=== PATIENT | male | born 1945 | race Caucasian/White ===

== ENCOUNTER 2021-07-09 08:16 | Outpatient (REF) | payer MEDICARE, OTHER, SELFPAY | END 2021-07-09 08:17 | disposition home or self-care (01) | LOC: HO.LAB 08:16 | PROVIDERS: Visit Provider Internal Medicine | DX: Z20.822 Contact with and (suspected) exposure to COVID-19 (principal) | CPT/HCPCS: C9803; U0003; U0005 ==

== ENCOUNTER 2021-09-05 12:47 | Outpatient (REF) | payer MEDICARE, OTHER, SELFPAY ==
[2021-09-05 16:20] LABS: COVID-19 Test Negative (Negative)
== END 2021-09-05 12:48 | disposition home or self-care (01) ==
LOC: HO.LAB 12:47
PROVIDERS: Visit Provider Internal Medicine
DX: Z20.822 Contact with and (suspected) exposure to COVID-19 (principal)
CPT/HCPCS: 36415; 87635; C9803

== ENCOUNTER 2021-11-05 13:58 | Outpatient (REF) | payer MEDICARE, OTHER, SELFPAY ==
--- NOTE | 2021-11-05 | PFT_ITS ---
FLOWS: FEV1 81% of predicted at 1.98 L. FVC 81% of predicted at 2.65 L. FEV1 to FVC ratio of 0.75. No bronchodilator response except in small to medium airways. LUNG VOLUMES: Total lung capacity 90% of predicted at 5.38 L. Residual volume 113% of predicted at 2.54 L. Slow vital capacity 76% of predicted at 2.74 L. Expiratory reserve volume 42% of predicted at 0.35 L. Diffusion capacity is mildly decreased, diffusion capacity corrects to normal after adjustment for alveolar ventilation. IMPRESSION: No obstructive or restrictive ventilatory defect. No bronchodilator response except in small to medium airways. Decreased expiratory reserve volume suggests extrathoracic restriction, likely secondary to abdominal obesity. Inder Scott MD AP/MODL / [id number]
--- NOTE | ~2021-11-05 | CT_ITS ---
EXAMINATION: CT CHEST WITHOUT CONTRAST CLINICAL INFORMATION: Smoking history COMPARISON: Previous chest CT August 2019 TECHNIQUE: Multidetector volumetric CT imaging of the chest was done. Axial MIP volume rendering provided. Sagittal and coronal reformatted images were obtained. This CT examination was performed using dose optimization techniques as appropriate, variously including the following: *Automated exposure control *Adjustment of mA and/or kV according to patient size (this includes techniques or standardized protocols for targeted exams where dose is matched to indication/reason for exam; i.e. extremities or head) *Use of iterative reconstruction technique DLP: 177 mGy-cm FINDINGS: [place] MACHINE OPERATOR: Unremarkable LUNGS: There is evidence of emphysema. The small pulmonary nodules are stable. Largest pulmonary nodule measures 4 mm in the anterior segment of the right upper lobe axial image 86 series 7. No new pulmonary nodule is seen. MEDIASTINUM: The left pulmonary artery is prominent. This is unchanged from previous exam. The thoracic aorta is tortuous but normal in caliber. The mediastinum is otherwise normal. PLEURA: There is no pleural effusion. No pleural mass or thickening. AXILLA: No lymphadenopathy. UPPER ABDOMEN: There is diverticulosis of the colon. OSSEOUS STRUCTURES: There are degenerative changes of the spine. CT/CT chest wo con IMPRESSION: Emphysema. Stable small pulmonary nodules. Stable prominence of the left pulmonary artery. Fleischner guidelines were followed.
== END 2021-11-05 13:59 | disposition home or self-care (01) ==
LOC: HO.CT 13:58
PROVIDERS: PCP Internal Medicine; Visit Provider Internal Medicine
DX: J43.9 Emphysema, unspecified (principal); R91.8 Other nonspecific abnormal finding of lung field; F17.200 Nicotine dependence, unspecified, uncomplicated
CPT/HCPCS: 71250; 94060; 94727; 94729

== ENCOUNTER 2022-01-28 07:56 | Outpatient (REF) | payer MEDICARE, MEDICAID, SELFPAY ==
[2022-01-28 08:25] LABS: COVID-19 Test Negative (Negative); IDNOW Serial# 08D9AD1C
== END 2022-01-28 07:57 | disposition home or self-care (01) ==
LOC: HO.LAB 07:56
PROVIDERS: PCP Internal Medicine; Visit Provider Internal Medicine
DX: Z20.822 Contact with and (suspected) exposure to COVID-19 (principal)
CPT/HCPCS: 87635; C9803

== ENCOUNTER 2022-02-13 07:54 | Day surgery (SDC) | payer OTHER, SELFPAY ==
[2022-02-08 10:34] VITALS: BMI 30.9
--- NOTE | 2022-02-12 11:53 | P.CONAN_ITS ---
Documented by User: Shamika Butterfield NP 02/12/22 11:54 HPI - Anesthesia Eval Consult details Narrative: 76yo M for Upper Endoscopy and Colonoscopy [facility] Past Medical History Medical History BPH (benign prostatic hyperplasia) History of ETOH abuse Hx of gastritis Migraine Smoker Surgical History Surgical History (Updated 02/08/22 @ 10:32 by Karlee Sanchez RN) History of esophagogastroduodenoscopy (EGD) Hx of colonoscopy Status post incision and drainage Social History Social History Patient Tobacco Use Status: Current everyday Tobacco user Are you DNR?: No Advance Directives: No Advance Directives Information Provided: Yes Meds Allergies Allergy/AdvReac Type Severity Reaction Status Date / Time No Known Allergies Allergy Verified 02/13/22 07:51 [No Known Allergies*] Exam Exam Date and Time: February 12, 2022 1153 Height,Weight and Vital Signs: Height 5 ft 4 in Weight 81.647 kg Narrative Narrative: PFT 10/2021 FLOWS:? FEV1 81% of predicted at 1.98 L. ? FVC 81% of predicted at 2.65 L. ? FEV1 to FVC ratio of 0.75. ? No bronchodilator response except in small to medium airways. ?? LUNG VOLUMES:? Total lung capacity 90% of predicted at 5.38 L. ? Residual volume 113% of predicted at 2.54 L. ? Slow vital capacity 76% of predicted at 2.74 L. ? Expiratory reserve volume 42% of predicted at 0.35 L. ? Diffusion capacity is mildly decreased, diffusion capacity corrects to normal after adjustment for alveolar ventilation. ?? IMPRESSION:? No obstructive or restrictive ventilatory defect.? No bronchodilator response except in small to medium airways.? Decreased expiratory reserve volume suggests extrathoracic restriction, likely secondary to abdominal obesity. Assessment and Plan Assessment Anesthesia Assessment: Chart Reviewed Documented by User: Thai Monroe MD 02/13/22 08:47 [facility] Past Medical History Medical History BPH (benign prostatic hyperplasia) History of ETOH abuse Hx of gastritis Migraine Smoker Family History Family history of problems with anesthesia: No Surgical History Surgical History (Updated 02/08/22 @ 10:32 by Karlee Sanchez RN) History of esophagogastroduodenoscopy (EGD) Hx of colonoscopy Status post incision and drainage History of Problems with Anesthesia: No Social History Social History Patient Tobacco Use Status: Current everyday Tobacco user Are you DNR?: No Advance Directives: No Advance Directives Information Provided: Yes Meds Allergies Allergy/AdvReac Type Severity Reaction Status Date / Time No Known Allergies Allergy Verified 02/13/22 07:51 [No Known Allergies*] Exam Airway Mallampati Class: II TM Dist: >3cm Neck ROM: Full Denture: Upper and Lower Assessment and Plan Assessment Anesthesia Assessment: Anesthesia Plan Discussed and Smoking Cess. Discussed Final Anesthetic Review Family History of Problems with Anesthesia: No History of Problems with Anesthesia: No NPO: Yes ASA Class: II Final Preanesthetic Review: No Changes in Pt Med Stat, Meds/Allgs Chart Reviewed, Consent Obtained/Reviewed and Anes Risks/Benef Reviewed Patient Risk: Low Procedure Risk: Low Anesthetic Plan Anesthetic Plan: MAC: Disposition: Standard PACU
[2022-02-13 08:01] VITALS: BP 115/82; PULSE 72; RESP 20; TEMP 36; O2SAT 98
--- NOTE | 2022-02-13 08:24 | ECG_ITS ---
Test Reason : PREOP Blood Pressure : / mmHG Vent. Rate : 064 BPM Atrial Rate : 064 BPM P-R Int : 132 ms QRS Dur : 080 ms QT Int : 400 ms P-R-T Axes : 071 041 065 degrees QTc Int : 412 ms Sinus rhythm with marked sinus arrhythmia Premature atrial complexes Borderline ECG When compared with ECG of 28-AUG-2016 14:04, No significant change was found Referred By: Thai Monroe Electronically Signed By:NIKO MCCRARY
[2022-02-13] MEDS: Lactated Ringers 1,000 ML 100 ML IVCONT (08:33)
[2022-02-13 10:46] VITALS: BP 123/77; PULSE 105; RESP 16; TEMP 36.1; O2SAT 96
--- NOTE | 2022-02-13 10:49 | PM.OP ---
Brief Operative Note Date of Service: 02/13/22 Pre-op diagnosis: GERD, Screening Post-op diagnosis: other (Duodenitis/Gastritis/Reflux esophagitis, Colon polyp) Procedure: EGD with biopsies, Colonoscopy to the cecum with bx/removal of polyp Surgeon: Andrew Galloway Anesthesia: MAC Was an Mobile Lounge Driver Or Operator used for this Procedure?: No Estimated blood loss (mL): 2.0 Pathology: other (A. Gastric antrum B. EG Junction at 35cm C. Transverse colon polyp) Condition: stable Disposition: PACU
[2022-02-13 11:01] VITALS: BP 121/79; PULSE 102; RESP 20; TEMP 36.1; O2SAT 96
--- NOTE | 2022-02-13 12:40 | OP_ITS ---
SURGEON: Andrew Galloway MD INDICATIONS: The patient presents for evaluation of previous history of esophagitis, personal history of tubular adenoma of the colon, and colorectal cancer screening. Full consent has been obtained from him for this, including risks of bleeding and perforation. PREOPERATIVE DIAGNOSIS: POSTOPERATIVE DIAGNOSIS: PROCEDURE PERFORMED: Esophagogastroduodenoscopy with biopsies, and colonoscopy to the cecum with biopsy removal of polyp. ESTIMATED BLOOD LOSS: COMPLICATIONS: ANESTHESIA: Monitored anesthesia care. ASSISTANTS: SPECIMENS: PREOPERATIVE DIAGNOSES: Esophagitis, personal history of tubular adenomas and tubulovillous adenoma of the colon, colorectal cancer screening. POSTOPERATIVE DIAGNOSES: Esophagitis, personal history of tubular adenomas and tubulovillous adenoma of the colon, colorectal cancer screening, gastritis, duodenitis, esophagitis, hiatal hernia, colon polyp, diverticulosis and internal hemorrhoids. DESCRIPTION OF PROCEDURE: The patient was placed in the left lateral decubitus position. The Olympus video gastroscope was passed in the posterior oropharynx and upper esophagus under direct vision. The scope was passed slowly to the distal esophagus. The gastroesophageal junction appeared at 35 cm. This area had some changes of reflux with erythema and a single erosion. There was no evidence of any Martinez esophagus. The scope entered into the stomach. There was a small hiatal hernia. The scope was advanced to the pylorus and the duodenum was cannulated. The duodenum including the bulb was carefully inspected. The duodenal bulb had changes of duodenitis with associated erythema and edema. There were no ulcerations nor mass. The scope was withdrawn back into the stomach. The gastric antrum had some areas of erythema and edema consistent with gastritis. There were no erosions or ulceration. There was good peristalsis. Biopsies were obtained from the antrum. The scope was retroflexed visualizing the proximal stomach carefully, which appeared normal, without any sign of mass or ulceration. The scope was straightened and withdrawn back to the esophagus. Biopsies were obtained at the EG junction at 35 cm. Proximal to that the esophageal mucosa appeared normal. The scope was withdrawn from the patient. He was turned around for the colonoscopy. The digital rectal exam revealed no abnormalities. The Olympus video pediatric colonoscope was entered into the rectum and advanced easily to the cecum. Once in the cecum, I did identify normal-appearing cecal pouch with appendiceal orifice and a normal-appearing ileocecal valve. The entire cecum and ileocecal valve appeared normal. There was transillumination of light deep in the right lower quadrant. The scope was slowly withdrawn assessing all mucosal surfaces carefully. Preparation was excellent. In the transverse colon was an approximately 3 or 4 mm polyp, which was biopsied and completely removed with cold biopsy forceps. I did not visualize any other polyps, colitis, nor angiodysplasia. There was a [id number] amount of sigmoid diverticulosis. In the rectum, scope was retroflexed visualizing internal hemorrhoids, but no other pathology. The rectal mucosa appeared normal. Scope was straightened and withdrawn from the patient. He tolerated the procedure well and was returned to recovery area in stable condition. IMPRESSION: 1. Colon polyp, status post biopsy removal. 2. Diverticulosis. 3. Internal hemorrhoids. 4. Duodenitis. 5. Gastritis. 6. Reflux esophagitis and hiatal hernia. PLAN: The results of the biopsy will be checked. He will be started on omeprazole 20 mg daily. He will be seen in followup in the office. If Helicobacter pylori is present in the gastric biopsies, I would recommend eventual treatment of that. He was advised to avoid aspirin and NSAIDs. This has been discussed with his . Given the minimal findings in the colonoscopy and his age, I do not think he will need any further screening colonoscopies. MD LACEY Lopez/MAHENDRA / [id number]
== END 2022-02-13 11:30 | disposition home or self-care (01) ==
PROVIDERS: PCP Internal Medicine; Visit Provider Internal Medicine
PROC: (CPT 45380; principal; 2022-02-13 09:10)
DX: Z12.11 Encounter for screening for malignant neoplasm of colon (principal); Z86.010 Personal history of colon polyps; D12.3 Benign neoplasm of transverse colon; K57.30 Diverticulosis of large intestine without perforation or abscess without bleeding; K64.8 Other hemorrhoids; K29.50 Unspecified chronic gastritis without bleeding; B96.81 Helicobacter pylori [H. pylori] as the cause of diseases classified elsewhere; K21.00 Gastro-esophageal reflux disease with esophagitis, without bleeding; K29.80 Duodenitis without bleeding; K44.9 Diaphragmatic hernia without obstruction or gangrene; Z79.899 Other long term (current) drug therapy
CPT/HCPCS: 45380; 43239; 88305; 88342; 93005; J2250

== ENCOUNTER 2022-07-16 11:30 | Outpatient (REF) | payer OTHER, SELFPAY ==
[2022-07-16 13:40] LABS: Erythrocyte Sedimentation Rate 7 MM/HR (0-15)
[2022-07-17 17:27] LABS: Lyme Abs Screen <0.90 index
== END 2022-07-16 11:31 | disposition home or self-care (01) ==
LOC: HO.LAB 11:30
PROVIDERS: PCP Nurse Practitioner Family; Visit Provider Internal Medicine
DX: M70.21 Olecranon bursitis, right elbow (principal)
CPT/HCPCS: 36415; 85652; 86617; 86618

== ENCOUNTER 2022-09-25 07:50 | Outpatient (REF) | payer OTHER, SELFPAY ==
--- NOTE | ~2022-09-25 | XR_ITS ---
EXAMINATION: XR elbow RT min 3V CLINICAL INFORMATION: Pain COMPARISON: None TECHNIQUE: 3 views of the elbow FINDINGS: No acute fracture or dislocation. Joint spaces are maintained. No joint effusion. Soft tissues swelling dorsal to the elbow, consider correlation with symptoms of bursitis. XR/XR elbow RT min 3V IMPRESSION: * No acute osseous abnormality. Soft tissue swelling dorsal to the elbow, consider correlation with symptoms of bursitis.
== END 2022-09-25 07:51 | disposition home or self-care (01) ==
LOC: HO.HOSX 07:50
PROVIDERS: Visit Provider Physician Assistant
DX: M70.21 Olecranon bursitis, right elbow (principal)
CPT/HCPCS: 73080; 99202

== ENCOUNTER 2022-11-07 08:58 | Outpatient (REF) | payer OTHER, MEDICAID, SELFPAY ==
--- NOTE | ~2022-11-07 | XR_ITS ---
EXAMINATION: XR FOOT, RIGHT CLINICAL INFORMATION: Right foot pain. COMPARISON: None TECHNIQUE: AP, lateral, and oblique views of the right foot. FINDINGS: Mild first metatarsophalangeal degenerative joint changes are seen. There is no acute fracture or dislocation. The tarsal bones are normally aligned. There is a small plantar calcaneal spur. The soft tissues are unremarkable. XR/XR foot RT min 3V IMPRESSION: 1. Mild first metatarsophalangeal osteoarthritis. 2. Small plantar calcaneal spur.
== END 2022-11-07 08:59 | disposition home or self-care (01) ==
LOC: HO.HMGCX 08:58
PROVIDERS: PCP Nurse Practitioner Family; Visit Provider Internal Medicine
DX: M79.671 Pain in right foot (principal)
CPT/HCPCS: 73630

== ENCOUNTER 2022-12-18 10:50 | Outpatient (REF) | payer OTHER, MEDICAID, SELFPAY ==
--- NOTE | ~2022-12-18 | XR_ITS ---
EXAMINATION: XR FOOT, RIGHT CLINICAL INFORMATION: Pain COMPARISON: November 07, 2022 TECHNIQUE: AP, lateral, and oblique views of the right foot. FINDINGS: There is no evidence of acute fracture or dislocation of the right foot. No destructive bony lesion is identified. Prominent plantar calcaneal spur is seen. There is edema seen about the dorsum of the tarsal bones and tarsometatarsal region. There is some smooth periosteal prominence seen about the third metatarsal which may be related to previous stress fractures. XR/XR foot RT 2V IMPRESSION: Calcaneal spur. Findings suggestive of old third metatarsal stress fractures.
== END 2022-12-18 10:51 | disposition home or self-care (01) ==
LOC: HO.HMGCX 10:50
PROVIDERS: PCP Nurse Practitioner Family; Visit Provider Nurse Practitioner Family
DX: M79.671 Pain in right foot (principal)
CPT/HCPCS: 73620

== ENCOUNTER 2023-01-01 09:02 | Outpatient (REF) | payer OTHER, MEDICAID, SELFPAY ==
--- NOTE | ~2023-01-01 | XR_ITS ---
EXAMINATION: XR FOOT, RIGHT CLINICAL INFORMATION: Right foot pain. COMPARISON: Right foot radiographs dated 12/18/2022 and 11/07/2022. TECHNIQUE: AP, lateral, and oblique views of the right foot. FINDINGS: There is no acute fracture or dislocation. Mild first metatarsophalangeal and interphalangeal degenerative joint changes are seen. The tarsal bones are normally aligned. There is a small plantar calcaneal spur. Mild soft tissue swelling is seen dorsally over the tarsal bones without significant change. XR/XR foot RT min 3V IMPRESSION: 1. No definitive acute abnormality. 2. Mild degenerative changes as detailed above.
== END 2023-01-01 09:03 | disposition home or self-care (01) ==
LOC: HO.HOSX 09:02
PROVIDERS: Visit Provider Physician Assistant
DX: S92.351A Displaced fracture of fifth metatarsal bone, right foot, initial encounter for closed fracture (principal); G57.50 Tarsal tunnel syndrome, unspecified lower limb
CPT/HCPCS: 73630; 99202

== ENCOUNTER → 2023-01-22 14:43 | Outpatient (REF) | payer OTHER, MEDICAID, SELFPAY ==
--- NOTE | 2023-01-22 14:46 | CA_ITS ---
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 The calculated ejection fraction is 64% by biplane method. - There is mild calcification of the aortic valve. - Possible mild pulmonic stenosis. Findings Left Ventricle Normal left ventricular cavity size. There is mildly increased left ventricular wall thickness. The left ventricular systolic function is normal. The calculated ejection fraction is 64% by biplane method. There is no evidence of regional wall motion abnormalities. Diastolic function is normal for age. Right Ventricle Mildly increased right ventricular cavity size. There is normal right ventricular systolic function. Atria Both atria are normal in size. Aortic Valve There is a normal trileaflet aortic valve. There is mild calcification of the aortic valve. There is no aortic valve stenosis. There is no aortic valve regurgitation. Mitral Valve The mitral valve appears normal. There is mild mitral valve regurgitation. There is no mitral valve stenosis. Pulmonic Valve Peak PV gradient is calculated at 22 mmHg. Possible mild pulmonic stenosis. Tricuspid Valve Normal tricuspid valve structure. There is no tricuspid valve regurgitation. Great Vessels The asc aorta is normal in size. Venous The inferior vena cava is normal in size and collapses greater than 50% with inspiration. Pericardium/Pleural There is no evidence of pericardial effusion. Prior Study Comparison No prior study available for comparison. Measurements 2D Linear Measurements IVSd: 1.15 0.6-0.9/0.6-1.0 cm LVIDd: 4.09 3.9-5.3/4.2-5.9 cm LVIDd Index: 2.21 2.4-3.2/2.2-3.1 cm/m2 LVIDs: 2.59 2.0-3.6 cm LVPWd: 1.04 0.7-1.1 cm LA Diam: 4.30 2.7-3.8/3.0-4.0 cm LAIDs Index: 2.32 1.5-2.3 cm/m2 LV Mass: 186.43 67-162/88-224 g LV Mass Index: 100.77 43-95/49-115 g/m2 LVOT Diam: 1.90 3.0+(-)1.3 cm 2D Systolic Function EF 4C: 64.90 >55% EF 2C: 63.70 >55% EF BiP: 63.50 >55% Mitral Valve MV Pk E: 0.75 MV PK A: 1.02 MV Decel Time: 306.00 E/A: 0.70 E'Lateral: 4.68 E'Medial: 6.31 E/E' Med: 11.90 E/E' Lat: 16.00 PHT: 90.00 MVA PHT: 2.44 Decel [place]: 2.45 Aortic Valve AoV Pk José: 1.55 AoV Mn José: 1.07 AoV VTI: 0.31 AoV Pk Grad: 10.00 Aov Mn Grad: 6.00 JULIANA Cont.VTI: 2.15 LVOT LVOT Pk José: 1.15 LVOT Mn José: 0.79 LVOT VTI: 0.23 LVOT Pk Grad: 5.00 LVOT Mn Grad: 3.00 LVOT Diam: 1.90 LVOT Area: 2.84 Diastolic Function MV Pk E: 0.75 MV Pk A: 1.02 E/A: 0.70 E'Medial: 6.31 E/E' Med: 11.90 E' Laterial: 4.68 E/E' Lat: 16.00 Right Ventricle TAPSE (mm): 23.60 TVS' José: 16.20 Tricuspid Valve TR Pk José: 2.43 TR Pk Grad: 24.00 RA Press: 3.00 RVSP: 27.00 Great Vessels Aorta Sinus of Valsalva: 3.20 2.0-3.5 cm Ao Asc: 3.50 2.1-3.4 cm Pulmonary Valve PV Pk José: 2.33 PV Min José: 1.56 Peak PV Grad: 22.00 PV Mn Grad: 11.00 Shunting QP:QS: 0.40 Updated in Other Vendor System with Status of Final Angelo Prieto MD electronically signed on 01/22/2023 4:56:34 PM with status of Final
== END ==
LOC: HO.CARD 14:43
PROVIDERS: Visit Provider Nurse Practitioner Family
DX: R01.1 Cardiac murmur, unspecified (principal); F17.200 Nicotine dependence, unspecified, uncomplicated
CPT/HCPCS: 93306

== ENCOUNTER 2023-02-19 14:00 | Outpatient (RCR) | payer OTHER, MEDICAID, SELFPAY ==
--- NOTE | 2023-01-28 12:55 | MHC.PT.EP ---
[facility] [place] Office [place] Office [place] Office [address] [phone] F: [phone] F: [phone] F: [phone] F: [phone] Physical Therapy Plan of Care Date of Evaluation: Date of Surgery: NA Diagnosis: PLANTAR FASCIAL FIBROMATOSIS TARSAL TUNNEL SYNDROME Assessment: Pt IS 77 YO M REFERRED TO PT FROM ORTHO ([facility]) WITH R FOOT PLANTARFASCIITIS AND TARSAL TUNNEL SYNDROME. PRESENTS WITH LIMITED R FOOT MOBILITY, TIGHT CALF MMS, LIMITED R ANKLE DF. Pt SHOULD BENEFIT FROM PT TO ADDRESS THESES ISSUES. OF NOTE, Pt C/O NUMBNESS IN TOES (BOTH FEET) AND PAIN/DIFFICULTY BENDING OVER TO PUT SOCKS ON (?BACK INVOLVEMENT). Frequency and Duration: The patient will be seen 2X/WK X 4 WKS Short Term Goals: 1. INCREASED AWARENESS FOOT CARE 2. DECREASED TOE NUMBNESS REPORTED Fpc Goals: 1. I HEP WITH DC EX PLAN 2. Pt TO WEAR ORTHOTICS/SUPPORTIVE SHOES WITH RELIEF 3. INCREASED R ANKLE DF ROM 10 DEGREES 4. DECREASED HEEL PAIN AT LEAST 50% WITH ADLS Treatment Plan: Modalities to reduce pain, spasms and effusion. Manual therapy to restore motion and function. Therapeutic exercise to improve strength and flexibility. Neuromuscular re-education for posture and balance. Therapeutic activities to return to functional activities of daily living. Electronically signed by: FILOMENA REINOSO PT Please sign and return to therapist. Thank you for your referral.
--- NOTE | 2023-02-21 13:35 | MHC.PT.DC ---
[facility] [place] Office [place] Office [place] Office [address] [facility] [phone] F: [phone] F: [phone] F: [phone] F: [phone] Physical Therapy Discharge Report Diagnosis: PLANTAR FASCIAL FIBROMATOSIS TARSAL TUNNEL SYNDROME Date of Surgery: NA Date of Evaluation: 01/28/23 Date of Discharge: 02/21/23 Treatments to Date: 6 Cancellations to Date: No Shows to Date: Discharge Status: Achieved Goals Improved Function Independent with HEP Discharge Summary: PER LAST PT NOTE ASSESSMENT BY HOA ROBERSON WEBLOGIC DEVELOPER 'Pt independent w/HEP -AROM N all mvts R LE -Strength 5/5 all mvts R ankle' Electronically signed by: FILOMENA REINOSO PT Please sign and return to therapist. Thank you for your referral.
== END 2023-02-21 13:36 | disposition home or self-care (01) ==
LOC: HO.PT 14:00
PROVIDERS: PCP Nurse Practitioner Family; Visit Provider Physician Assistant
DX: M72.2 Plantar fascial fibromatosis (principal); G57.50 Tarsal tunnel syndrome, unspecified lower limb
CPT/HCPCS: 97110; 97140; 97161; 97530

== ENCOUNTER 2023-04-17 09:06 | Outpatient (REF) | payer OTHER, SELFPAY ==
--- NOTE | 2023-04-17 09:10 | EMG_ITS ---
Right tibial and peroneal motor studies were performed. Right superficial peroneal and medial lateral plantar studies were performed. Right sural sensory study was performed and paraspinal muscles were tested with a needle. IMPRESSION: Mild to moderate axonal sensory motor peripheral neuropathy. MD BERNARDO Solano/SHILPIL / [id number]
== END 2023-04-17 09:07 | disposition home or self-care (01) ==
LOC: HO.NEURO 09:06
PROVIDERS: PCP Nurse Practitioner Family; Visit Provider Physician Assistant
DX: R20.0 Anesthesia of skin (principal); R20.2 Paresthesia of skin; G57.50 Tarsal tunnel syndrome, unspecified lower limb
CPT/HCPCS: 95860; 95886; 95907; 95910

== ENCOUNTER → 2023-05-07 11:13 | Outpatient (BNVA) | payer OTHER, SELFPAY | PROVIDERS: PCP Nurse Practitioner Family; Visit Provider Physician Assistant ==

== ENCOUNTER 2023-05-16 11:10 | Outpatient (REF) | payer OTHER, SELFPAY ==
[2023-05-16 13:17] LABS: MANUAL DIFF FLAG NO
[2023-05-16 13:26] LABS: Appearance Urine Clear; Color Urine Yellow; Glucose Urine UA Negative (Negative); Leukocyte Esterase Urine Trace (Negative); Nitrite Urine Negative (Negative); PH 6.5 (5.0-9.0); UMIC TRIGGER UACC YES; Urine Blood Negative (Negative); Urine Ketones Negative (Negative); Urine Protein Negative (Neg-Trace)
[2023-05-16 13:28] LABS: Basophils Absolute Auto 0.1 X10*3/uL (0.0-0.2); Eosinophils Absolute Auto 0.2 X10*3/uL (0.0-0.4); Eosinophils Percent Auto 2.9 % (0-4); Hematocrit 46.7 % (42.0-52.0); Hemoglobin 15.6 g/dl (14.0-18.0); Imm Gran Abs Auto 0.01 X10*3/uL (0.00-0.03); Imm Gran Pct Auto 0.2 % (0.0-0.4); Lymphocytes Absolute Auto 1.4 X10*3/uL (1.2-4.9); Lymphocytes Percent Auto 23.4 % (20-40); Mean Corpuscular HGB Conc 33.4 g/dl (31.0-36.0); Mean Corpuscular Hemoglobin 30.2 pg (27.0-33.0); Mean Corpuscular Volume 90.3 fL (80.0-98.0); Mean Platelet Volume 12.2 fL (9.4-12.4); Monocytes Absolute Auto 0.6 X10*3/uL (0.1-1.2); Neutrophils Absolute Auto 3.7 x10*3/uL (2.0-8.3); Neutrophils Percent Auto 62.5 % (45-73); Platelet Count 183 X10*3/uL (160-400); Red Blood Count 5.17 X10*6/uL (4.60-5.80); White Blood Count 5.9 X10*3/uL (4.8-10.8)
[2023-05-16 13:33] LABS: Bacteria Urine None Seen (None Seen); Hyaline Casts Urine 0-2 /LPF (0-2); RBC Urine 0-2 /HPF (0-2); Squamous Epithelial Cell Urine 0-2 /HPF (0-2); WBC Urine 0-5 /HPF (0-5)
[2023-05-16 13:52] LABS: Alanine Aminotransferase 23 U/L (0-40); Albumin Level 4.3 g/dL (3.5-5.0); Alkaline Phosphatase 105 U/L (39-117); Anion Gap 10 (12-20); Aspartate Amino Transferase 19 U/L (5-37); Bilirubin Total 0.5 mg/dL (0.0-1.0); Blood Urea Nitrogen 19 mg/dL (9-16); Calcium 9.5 mg/dL (8.4-10.2); Carbon Dioxide 31 mmol/L (22-29); Chloride 107 mmol/L (96-108); Cholesterol 262 mg/dL (<200); Estimated Glomerular Filt Rate > 60; Glucose Fasting 90 mg/dL (60-99); HDL Cholesterol 44 mg/dL (>40); LDL Cholesterol Calculated 197 mg/dL (<100); Potassium 4.1 mmol/L (3.3-5.1); Sodium 144 mmol/L (135-145); Total Protein 7.2 g/dL (6.5-8.0); Triglycerides 105 mg/dL (<150)
[2023-05-16 14:09] LABS: Prostate Specific Antigen Scr 2.03 ng/mL (<0.05-4.0)
[2023-05-16 14:15] LABS: TSH reflex Free T4 1.19 uIU/mL (0.32-4.0)
== END 2023-05-16 11:11 | disposition home or self-care (01) ==
LOC: HO.HMGCLDS 11:10
PROVIDERS: PCP Nurse Practitioner Family; Visit Provider Nurse Practitioner Family
DX: K21.9 Gastro-esophageal reflux disease without esophagitis (principal); F17.200 Nicotine dependence, unspecified, uncomplicated; Z12.5 Encounter for screening for malignant neoplasm of prostate; E78.5 Hyperlipidemia, unspecified
CPT/HCPCS: 36415; 80053; 80061; 81001; 84153; 84443; 85025

== ENCOUNTER 2023-06-24 10:49 | Outpatient (AMB) | payer OTHER, SELFPAY ==
[2023-06-24 10:57] VITALS: BP 110/68; PULSE 72; TEMP 36.6; O2SAT 98; BMI 31.8
--- NOTE | 2023-06-24 10:57 | AM.OFFWIN_ITS ---
Intake Vital Signs 06/24/23 10:57 Height 5 ft 4 in Weight 185 lb BMI 31.8 BP 110/68 Blood Pressure Location Lt brachial Position Sitting Pulse 72 Pulse Source Pulse Oximeter Temp 97.8 F Temp Source Temporal Artery Scan Pulse Oximetry (%) 98 Intake Visit Reasons: EP RT FT numbness/Tingling wants male provider Intake Note: pt is here for c/o numbness and tingling right leg/foot Patient Tobacco Use Status: Current everyday Tobacco user Allergies No Known Allergies [No Known Allergies*] Allergy (Verified 06/24/23 10:57) Do you need a note to return to daycare/school/sports/work: Yes HPI HPI Comments History of Present Illness Details 77-year-old male that presents for lab r esults and neuropathy. Patient scheduled to have an appointment today with provider was out sick he was told that he had neuropathy baseline his last workup on the 17 of April and was told that he needs to start the regimen. [facility] Medical History (Updated 06/24/23 @ 11:39 by TOÑO Augustin) Pulmonic stenosis BPH (benign prostatic hyperplasia) Smoker History of ETOH abuse Hx of gastritis Migraine Surgical History Status post incision and drainage Hx of colonoscopy History of esophagogastroduodenoscopy (EGD) Family History Brother Mental health disorder Social History Housing: Apartment Patient Tobacco Use Status: Current everyday Tobacco user Cigarettes Per Day: 5 e-Cigarette/Vaping Use: Never Used Second Hand Smoke Exposure: Yes service: No Current occupational status: retired Cognitive needs: No Hearing needs: No Vision needs: No Review of Systems Neuro Reports paresthesias Physical Exam Vital Signs: Last Vital Signs Temp 97.8 F 06/24/23 10:57 Pulse 72 06/24/23 10:57 BP 110/68 06/24/23 10:57 Pulse Ox 98 06/24/23 10:57 BMI result Body Mass Index 31.8 Const General: healthy appearing, comfortable, no acute distress and alert Orientation/consciousness: patient oriented x3 Limitations: no limitations HEENT Head: Yes normal to inspection Ears: hearing grossly normal bilaterally Resp Effort & Inspection: normal respiratory effort and able to speak in complete sentences Cardio Rate: regular rate Skin General skin exam: no rashes or lesions noted Neuro General: patient oriented x3 Extrem General: Yes normal to inspection Assessment & Plan Assessment & Plan (1) Tarsal tunnel syndrome: Code(s): G57.50 - Tarsal tunnel syndrome, unspecified lower limb Qualifiers: Laterality: unspecified laterality Qualified Code(s): G57.50 - Tarsal tunnel syndrome, unspecified lower limb Plan: Reviewed lab work with patient. Also discussed potential options for regimen for neuropathy. Discussed with patient that given the his primary that his primary is only out sick I feel that he needs to touch base with him before starting a new regimen for his neuropathy. Explained to the patient I did not want start him on a medication that his primary may not have intended him to be on. Patient was understanding and will schedule another appointment. Discharge instructions, follow up and treatment are discussed with patient in my usual fashion. Alternatives in treatment are also discussed. The patient will return for worsening symptoms or as needed. Advised that any labs/imaging ordered will be followed up on and contact made if further treatment needed. Counseled that patient's condition may require further evaluation and/or erik tment. Symptoms of concern for worsening disorder discussed in detail in my customary manner. Patient does verbalize understanding of the plan, there are no apparent barriers to communication. The patient is given the opportunity to ask questions and have them answered to his/her satisfaction Coding Level of Care Code Est Pt Level 3 (64445) Diagnoses Tarsal tunnel syndrome, unspecified laterality G57.50 Laterality: unspecified laterality
== END 2023-06-24 11:41 | disposition home or self-care (01) ==
PROVIDERS: PCP Nurse Practitioner Family; Visit Provider Physician Assistant
DX: G57.50 Tarsal tunnel syndrome, unspecified lower limb (principal)
CPT/HCPCS: 99213

== ENCOUNTER 2023-07-01 15:37 | Outpatient (AMB) | payer OTHER, SELFPAY ==
--- NOTE | 2023-07-01 15:39 | A.OFFPC_ITS ---
Vital Signs 07/01/23 15:42 Height 5 ft 4 in Weight 184 lb BMI 31.6 BP 120/80 Blood Pressure Location Lt brachial Position Sitting Pulse 67 Pulse Source Pulse Oximeter Pulse Oximetry (%) 97 Oxygen Delivery Method Room Air Intake Visit Reasons: discuss meds for neuropathy Allergies No Known Allergies [No Known Allergies*] Allergy (Verified 07/01/23 15:43) Medication List - Last Reconciled 07/01/23 by MONICA Luciano atorvastatin 20 mg PO BEDTIME celecoxib 200 mg PO BID meloxicam 15 mg PO DAILY omeprazole 20 mg PO DAILY Tobacco use date assessed: 12/18/22 HPI discuss meds for neuropathy HPI Details Pt reports that he has stopped smoking and switched to vaping. He has never been on inhalers. Will refer back to thoracic for follow up low-dose CTs. Pt refuses PFT testing and pulmonology referral. Denies chest pain, shortness of breath, and dizziness. Pt reports ongoing intermittent neuropathy. He reports this is getting better. Will continue to monitor. Dyslipidemia: Pt is taking atorvastatin 20mg. Will repeat labs in 2 months. [facility] Medical History (Updated 07/01/23 @ 15:45 by MONICA Luciano) Pulmonic stenosis BPH (benign prostatic hyperplasia) Smoker History of ETOH abuse Hx of gastritis Migraine Surgical History Status post incision and drainage Hx of colonoscopy History of esophagogastroduodenoscopy (EGD) Family History Brother Mental health disorder Social History Housing: Apartment Patient Tobacco Use Status: Current everyday Tobacco user Cigarettes Per Day: 5 e-Cigarette/Vaping Use: Never Used Second Hand Smoke Exposure: Yes service: No Current occupational status: retired Cognitive needs: No Hearing needs: No Vision needs: No Questionnaire Thrive Questionnaire Date Thrive assessed: 04/16/22 JASBIR-7 AMB Questionnaire JASBIR-7 Date JASBIR - 7 assessed: 04/16/22 Source: Developed by Drs. Andrew Flowers, Lauren Humphries, Vimal Zuniga and colleagues, with an educational garrick from [employer]. Review of Systems Const Reports as per HPI Physical exam (Primary Care) Vital Signs: Last Vital Signs Pulse 67 07/01/23 15:42 BP 120/80 07/01/23 15:42 Pulse Ox 97 07/01/23 15:42 Oxygen Delivery Method Room Air 07/01/23 15:42 BMI result Body Mass Index 31.6 Tobacco/Smoking Status: Tobacco use Status Tobacco use date assessed 12/18/22 07/01/23 15:42 Patient Tobacco Use Status Current everyday Tobacco 07/01/23 15:42 e-Cigarette/Vaping Use Never Used 07/01/23 15:42 Thrive Assessment: Date of Thrive Assessment Date Thrive assessed 04/16/22 07/01/23 15:42 Const General: cooperative Nutritional Appearance: obese Orientation/consciousness: patient oriented x3 Resp Effort & Inspection: normal respiratory effort Auscultation: clear to auscultation bilaterally (dim bilat) Cardio Rate: regular rate Rhythm: regular rhythm Heart sounds: S1 normal heart sound present, S2 normal heart sound present and Murmur heart sound present systolic (faint) Neuro General: patient oriented x3 Psych Appearance: grossly normal Mental Status: mental status grossly normal Speech and movement: Normal speech and movement present Affect: normal affect Attitude: cooperative Thought process: Normal thought process present Thought content: Normal thought content present Insight: Good insight present (Psych) Judgement: Good judgement present (Psych) Assessment and Plan Assessment & Plan (1) Smoker: Code(s): F17.200 - Nicotine dependence, unspecified, uncomplicated Plan: Referred to thoracic (2) Pulmonary nodules: Code(s): R91.8 - Other nonspecific abnormal finding of lung field Plan: Referred to thoracics for follow up (3) Dyslipidemia: Code(s): E78.5 - Hyperlipidemia, unspecified Plan: Labs already ordered Plan The patient agreed to the use of a medical physics teacher for this encounter. Scribed for MONICA Dietz by Lou Moreland medical physics teacher, on 07/01/2023 at 15:55 EST Orders: Orders AMB EKG-In Office Today E78.5 - Hyperlipidemia, unspecified, F17.200 - Nicotine dependence, unspecified, uncomplicated Referrals Thoracic Surgery Referral F17.200 - Nicotine dependence, unspecified, uncomplicated, R91.8 - Other nonspecific abnormal finding of lung field Coding Level of Care Code Est Pt Level 3 (06103) Diagnoses Smoker F17.200 Pulmonary nodules R91.8 Dyslipidemia E78.5
[2023-07-01 15:42] VITALS: BP 120/80; PULSE 67; O2SAT 97; BMI 31.6
== END 2023-07-01 16:32 | disposition home or self-care (01) ==
PROVIDERS: PCP Nurse Practitioner Family; Visit Provider Nurse Practitioner Family
DX: F17.200 Nicotine dependence, unspecified, uncomplicated (principal); R91.8 Other nonspecific abnormal finding of lung field; E78.5 Hyperlipidemia, unspecified
CPT/HCPCS: 99213

== ENCOUNTER 2023-07-29 08:59 | Outpatient (REF) | payer OTHER, SELFPAY ==
[2023-07-29 12:00] LABS: Alanine Aminotransferase 27 U/L (0-40); Alkaline Phosphatase 118 U/L (39-117); Anion Gap 7 (12-20); Aspartate Amino Transferase 18 U/L (5-37); Bilirubin Total 0.5 mg/dL (0.0-1.0); Blood Urea Nitrogen 19 mg/dL (9-16); Carbon Dioxide 31 mmol/L (22-29); Chloride 109 mmol/L (96-108); Cholesterol 147 mg/dL (<200); Estimated Glomerular Filt Rate > 60; Glucose Fasting 90 mg/dL (60-99); HDL Cholesterol 36 mg/dL (>40); LDL Cholesterol Calculated 91 mg/dL (<100); Potassium 3.9 mmol/L (3.3-5.1); Sodium 143 mmol/L (135-145); Total Protein 6.6 g/dL (6.5-8.0); Triglycerides 100 mg/dL (<150)
== END 2023-07-29 09:00 | disposition home or self-care (01) ==
LOC: HO.HMGCLDS 08:59
PROVIDERS: PCP Nurse Practitioner Family; Visit Provider Nurse Practitioner Family
DX: E78.5 Hyperlipidemia, unspecified (principal)
CPT/HCPCS: 36415; 80053; 80061

== ENCOUNTER 2023-09-02 13:33 | Inpatient (IN) | payer OTHER, SELFPAY ==
--- NOTE | ~2023-09-02 | XR_ITS ---
EXAMINATION: XR CHEST CLINICAL INFORMATION: Dyspnea COMPARISON: Previous chest CT October 2021 and chest x-ray August 2016 TECHNIQUE: 2 views of the chest were obtained. FINDINGS: The cardiac silhouette does not appear enlarged. Volumes are low. There are increased central bronchovascular markings. There may be increased interstitial markings at the left lung base. There are small bilateral pleural effusions. Findings are questionable for mild CHF. There are degenerative changes of the spine. XR/XR chest 2V IMPRESSION: Question mild CHF
--- NOTE | 2023-09-02 13:53 | ED_ITS ---
HPI - SOB/Dyspnea General Chief Complaint: Dyspnea Stated Complaint: Diff Breathing When Laying Down Time Seen by Provider: 09/02/23 21:36 Source: patient Mode of arrival: ambulatory History of Present Illness HPI Narrative: 78-year-old male who presents with shortness of breath for the past couple of days that has not been associated with fever, chills, cough, sore throat or body aches. Patient states that he is experiencing worsening of shortness of breath when he lies flat and also noted to have dyspnea on exertion. Patient denies having had this previously and denies any diabetes or hypertension. Patient is a previous smoker. Related Data Home Medications Medication Instructions Recorded Confirmed omeprazole 20 mg capsule,delayed 20 mg PO DAILY 04/16/22 07/01/23 release meloxicam 15 mg tablet 15 mg PO DAILY 01/01/23 07/01/23 Previous Rx's Medication Instructions Recorded atorvastatin 20 mg tablet 20 mg PO BEDTIME #90 tabs 05/30/23 celecoxib 200 mg capsule 200 mg PO BID #60 caps 08/20/23 Allergies Allergy/AdvReac Type Severity Reaction Status Date / Time No Known Allergies Allergy Verified 09/02/23 14:01 [No Known Allergies*] Review of Systems 2 Review of Systems: Pertinent positives and negatives as stated in HPI PMFSH Past Medical History Source: nursing notes reviewed Medical History Pulmonic stenosis BPH (benign prostatic hyperplasia) Smoker History of ETOH abuse Hx of gastritis Migraine Surgical History Status post incision and drainage Hx of colonoscopy History of esophagogastroduodenoscopy (EGD) Family History Family History Brother Mental health disorder Social History Social History Housing: Apartment Patient Tobacco Use Status: Current everyday Tobacco user Cigarettes Per Day: 5 Smoked in Last 30 Days: No e-Cigarette/Vaping Use: Never Used Second Hand Smoke Exposure: Yes Use of substances other than those prescribed or required for medical reasons: No Advance Directives: No Advance Directives Information Provided: No service: No Current occupational status: retired Cognitive needs: No Hearing needs: No Vision needs: No Physical Exam 2 Vital Signs: Vital Signs: Last Vital Signs Temp 98.2 F 09/02/23 23:37 Pulse 120 H 09/02/23 23:37 Resp 20 09/02/23 23:37 BP 149/89 H 09/02/23 23:37 Pulse Ox 95 09/02/23 23:37 O2 Del Method Room Air 09/02/23 23:37 BMI result Body Mass Index 31.6 VITAL SIGNS: Reviewed. GENERAL: Well developed, well nourished, in no acute distress. HEAD: Normocephalic/atraumatic EYES: PERRLA, EOMI EARS: Ext canals without abnormality NOSE: Nares patent bilateral OROPHARYNX: no oral lesions noted, posterior pharynx clear NECK: Supple, no adenopathy LUNGS: Normal breath sounds. No adventitious sounds or accessory muscle use. SpO2<98> CARDIOVASCULAR: IRR/IRR without noted murmurs, no JVD or lower extremity edema. ABDOMEN: Soft, non-tender, non-distended with bowel sounds. MUSCULOSKELETAL: No tenderness, deformities, or effusions noted on gross inspection. EXTREMITIES: No cyanosis, clubbing or edema. SKIN: Inspection of the skin reveals no rashes NEUROLOGIC: Alert and oriented x 4. Strength and sensation to light touch were grossly intact x 4. Course Course Course Narrative: RME:?78 yo male w/ hx of GERD here with sob x2 days, worse with lying flat. no recent travel or long car rides. Full HPI, ROS and PE to be performed by the primary ED provider. Medications Administered Discontinued Medications Generic Name Dose Route Start Last Admin Trade Name Freq PRN Reason Stop Dose Admin Levalbuterol HCl 3.75 mg/ 0 mg 09/02/23 22:10 09/02/23 22:31 Ipratropium [place] 0.5 mg INHALE 09/02/23 22:11 3.75 dose ONCE ONE Administration Furosemide 20 mg 09/02/23 22:58 09/02/23 23:21 Furosemide 20 Mg/2 Ml Vial IVPUSH 09/02/23 22:59 20 mg ONCE ONE Administration Protocol Metoprolol Tartrate 2.5 mg 09/02/23 23:18 09/02/23 23:23 Metoprolol Tartrate 5 Mg/5 Ml Vial IVPUSH 09/02/23 23:19 2.5 mg ONCE ONE Administration Medical Decision Making Medical Decision Making [facility] Narrative: 213: 78-year-old male with history and clinical presentation, DDX: Viral illness, chronic lung disease, less likely felt to be pneumonia or ACS. Reviewed all investigations and hematologic indices are negative for leukocytosis or left shift and there is no thrombocytopenia but there is a normocytic anemia without history bleeding. Coagulation studies within normal limits. Chemistry indices do not demonstrate an SMITA and there are no electrolyte derangements. High sensitivity troponin is 7.9 within EKG that demonstrates atrial fibrillation with RVR, HR-114. Chest x-ray consistent with mild CHF. Clinically patient meets criteria for CHF which is new for the patient as well as new findings atrial fibrillation with RVR. I still think that there may be a component of chronic lung disease. Chads Vasc score-2 2321: I discussed the case with inpatient hospitalist who accepts admission. Differential Diagnosis Differential Diagnoses: The differential diagnosis associated with the presentation includes Please see the discussion above Admission/Observation Consideration of admission/observation: Escalation of care including admission/observation considered Please see the discussion above Consult Healthcare Provider Management of the patient was discussed with: Hospitalist Please see the discussion above Lab Data [facility] Lab Attestation statement: I reviewed the patient's lab results. Please see the discussion above 09/02/23 15:07 09/02/23 15:07 Labs: Lab Results 09/02/23 09/02/23 09/02/23 Range/Units 15:07 22:54 23:14 WBC 6.3 (4.8-10.8) X10*3/uL RBC 4.68 (4.60-5.80) X10*6/uL Hgb 13.8 L (14.0-18.0) g/dl Hct 41.8 L (42.0-52.0) % MCV 89.3 (80.0-98.0) fL MCH 29.5 (27.0-33.0) pg MCHC 33.0 (31.0-36.0) g/dl RDW 14.4 (11.0-16.0) % Plt Count 164 (160-400) X10*3/uL MPV 12.1 (9.4-12.4) fL Immature Gran % (Auto) 0.3 (0.0-0.4) % Neut % (Auto) 73.0 (45-73) % Lymph % (Auto) 14.4 L (20-40) % [place] % (Auto) 8.5 (2-11) % Eos % (Auto) 3.0 (0-4) % Baso % (Auto) 0.8 (0-2) % Lymph # (Auto) 0.9 L (1.2-4.9) X10*3/uL [place] # (Auto) 0.5 (0.1-1.2) X10*3/uL Eos # (Auto) 0.2 (0.0-0.4) X10*3/uL Baso # (Auto) 0.1 (0.0-0.2) X10*3/uL Abs Immat Gran (auto) 0.02 (0.00-0.03) X10*3/uL Absolute Neuts (auto) 4.6 (2.0-8.3) x10*3/uL Absolute Nucleated RBC 0.000 (0.0-0.012) X10*3/uL Nucleated RBC % (auto) 0.0 (0.0-0.2) /100WBC PT 12.6 (11.1-13.3) SEC INR 1.0 (0.9-1.1) Sodium 145 (135-145) mmol/L Potassium 4.3 (3.3-5.1) mmol/L Chloride 110 H (96-108) mmol/L Carbon Dioxide 26 (22-29) mmol/L Anion Gap 13 (12-20) BUN 21 H (9-16) mg/dL Creatinine 0.89 (0.5-1.4) mg/dL Estim Creat Clear Calc 67.7 Estimated GFR > 60 Random Glucose 94 (60-115) mg/dL Calcium 9.5 (8.4-10.2) mg/dL Magnesium 2.1 (1.6-2.6) mg/dL Troponin I High Sens 7.9 9.1 (<3.5-35.0) ng/L B-Natriuretic Peptide 93 (<100) pg/mL COVID-19 (JUANITO) Negative (Negative) COVID-19 Clin Com See Note Influenza Type A (MYLES) Negative (Negative) Influenza Type B (MYLES) Negative (Negative) Influenza A & B Note See Note Independent Interpretation I performed an independent interpretation of an: EKG Interpretation: Atrial fibrillation with RVR, HR-114, no STEMI, QRS/QTC is within normal limits. Radiology Impression Discussion of test interpretation with radiology: I have reviewed the radiologist's reading. Radiologist Impression: Please see the discussion above External Record Review External record reviewed: Outpatient record and Prior outpatient labs Critical Care Time Critical Care Time Critical Care Time: Yes Total Critical Care Time: 60 Attestation: I personally attest to this time spent taking care of the patient. Discharge Plan Discharge Clinical Impression: New onset a-fib, CHF (congestive heart failure), Atrial fibrillation with RVR Patient Disposition: Admitted As Inpatient
[2023-09-02 14:01] VITALS: BP 132/84; PULSE 88; RESP 18; TEMP 36.5; O2SAT 96; BMI 31.6
--- NOTE | 2023-09-02 14:39 | ECG_ITS ---
Test Reason : sob Blood Pressure : / mmHG Vent. Rate : 114 BPM Atrial Rate : 000 BPM P-R Int : 000 ms QRS Dur : 080 ms QT Int : 334 ms P-R-T Axes : 000 029 041 degrees QTc Int : 460 ms Atrial fibrillation with rapid ventricular response with premature ventricular or aberrantly conducted complexes Abnormal ECG When compared to the previous EKG of 13 february 2022, rhythm change Referred By: Galilea Gutierres Electronically Signed By:NIKO MCCRARY
[2023-09-02 15:23] LABS: Hemoglobin 13.8 g/dl (14.0-18.0); Imm Gran Abs Auto 0.02 X10*3/uL (0.00-0.03); Imm Gran Pct Auto 0.3 % (0.0-0.4); PLT CLUMP 1; SCAN SMEAR FLAG 1
[2023-09-02 15:24] LABS: Basophils Absolute Auto 0.1 X10*3/uL (0.0-0.2); Basophils Percent Auto 0.8 % (0-2); Eosinophils Absolute Auto 0.2 X10*3/uL (0.0-0.4); Hematocrit 41.8 % (42.0-52.0); Lymphocytes Absolute Auto 0.9 X10*3/uL (1.2-4.9); Lymphocytes Percent Auto 14.4 % (20-40); Mean Corpuscular Hemoglobin 29.5 pg (27.0-33.0); Mean Corpuscular Volume 89.3 fL (80.0-98.0); Mean Platelet Volume 12.1 fL (9.4-12.4); Monocytes Absolute Auto 0.5 X10*3/uL (0.1-1.2); Monocytes Percent Auto 8.5 % (2-11); Neutrophils Absolute Auto 4.6 x10*3/uL (2.0-8.3); Red Blood Count 4.68 X10*6/uL (4.60-5.80); Red Cell Distribution Width 14.4 % (11.0-16.0)
[2023-09-02 15:31] LABS: Prothrombin Time 12.6 SEC (11.1-13.3)
[2023-09-02 15:35] LABS: Platelet Count 164 X10*3/uL (160-400); White Blood Count 6.3 X10*3/uL (4.8-10.8)
[2023-09-02 15:36] LABS: MANUAL DIFF FLAG NO
[2023-09-02 15:55] LABS: B Type Natriuretic Peptide 93 pg/mL (<100)
[2023-09-02 15:58] LABS: Anion Gap 13 (12-20); Blood Urea Nitrogen 21 mg/dL (9-16); Calcium 9.5 mg/dL (8.4-10.2); Carbon Dioxide 26 mmol/L (22-29); Chloride 110 mmol/L (96-108); Creatinine Clr Calc Pharmacy 67.7; Estimated Glomerular Filt Rate > 60; Glucose Random 94 mg/dL (60-115); Magnesium 2.1 mg/dL (1.6-2.6); Potassium 4.3 mmol/L (3.3-5.1); Sodium 145 mmol/L (135-145)
[2023-09-02 16:13] LABS: Troponin-I High Sensitivity 7.9 ng/L (<3.5-35.0)
[2023-09-02 21:46] VITALS: BP 144/95; PULSE 96; RESP 16; TEMP 36.7; O2SAT 98
--- NOTE | 2023-09-02 21:54 | PC.NURSE ---
pt aox4. comes to ED with intermittent SOB, pt reports that it is worse when he is lying flat and is having a hard time sleeping.
--- NOTE | 2023-09-02 21:56 | PC.NURSE ---
afib on tele - rate low 100s
[2023-09-02] MEDS: levalbuterol HCL 3.75 MG, Ipratropium Bromide 0.5 MG INHALE (22:31)
[2023-09-02 22:35] VITALS: PULSE 117; RESP 18; O2SAT 96
[2023-09-02] MEDS: Furosemide 20 MG/2 ML VIAL IVPUSH (23:21)
[2023-09-02] MEDS: Metoprolol Tartrate 5 MG/5 ML VIAL 2.5 MG IVPUSH (23:23)
[2023-09-02 23:34] LABS: COVID-19 Test Negative (Negative); IDNOW Serial# 58CA691E; IDNOW Serial# 6674DD1D; Influenza A Negative (Negative); Influenza B2 Negative (Negative)
[2023-09-02 23:37] VITALS: BP 149/89; PULSE 120; RESP 20; TEMP 36.8; O2SAT 95
[2023-09-02 23:40] LABS: Troponin-I High Sensitivity 9.1 ng/L (<3.5-35.0)
--- NOTE | 2023-09-02 23:46 | P.HPHOSP_ITS ---
History of Present Illness Date of Service: 09/02/23 Attending physician on admission: Kenroy Fitzpatrick Chief Complaint: Shortness of breath Patient is a 78-year-old male with past medical history of BPH, pulmonary hypertension, osteoarthritis, CVA, GERD, migraine headaches and who is a former smoker who presented to the emergency room complaining of shortness of breath for the past couple of days that has not been associated with fever, chills, cough, sore throat or body aches. He reported experiencing worsening of shortness of breath when he lies flat and also has exertional dyspnea. He is a former smoker but denies having any significant cardiac history and is not diabetic or hypertensive. While in the ED, he received Levalbuterol updrafts an yhen went into atrial fibrillation with RVR with rates of upto 140 beats per minute. Admission was requested for further care. Review of Systems 2 Review of Systems: Yes all other systems are reviewed and are negative PMFSH Medical History Pulmonic stenosis BPH (benign prostatic hyperplasia) Smoker History of ETOH abuse Hx of gastritis Migraine Family History Brother Mental health disorder Surgical History Status post incision and drainage Hx of colonoscopy History of esophagogastroduodenoscopy (EGD) Social History Housing: Apartment Patient Tobacco Use Status: Current everyday Tobacco user Cigarettes Per Day: 5 Smoked in Last 30 Days: No e-Cigarette/Vaping Use: Never Used Second Hand Smoke Exposure: Yes Use of substances other than those prescribed or required for medical reasons: No Advance Directives: No Advance Directives Information Provided: No service: No Current occupational status: retired Cognitive needs: No Hearing needs: No Vision needs: No Meds Allergies Allergy/AdvReac Type Severity Reaction Status Date / Time No Known Allergies Allergy Verified 09/02/23 14:01 [No Known Allergies*] Home Medications Medication Instructions Recorded Confirmed Last Taken Type omeprazole 20 mg capsule,delayed 20 mg PO DAILY 04/16/22 07/01/23 Unknown History release meloxicam 15 mg tablet 15 mg PO DAILY 01/01/23 07/01/23 Unknown History Physical Exam 2 Vital Signs and Narrative: Vital Signs: Last Vital Signs Temp 98.2 F 09/02/23 23:37 Pulse 120 H 09/02/23 23:37 Resp 20 09/02/23 23:37 BP 149/89 H 09/02/23 23:37 Pulse Ox 95 09/02/23 23:37 O2 Del Method Room Air 09/02/23 23:37 BMI result Body Mass Index 31.6 General: Well nourished. Awake, alert and oriented x 4. No apparent distress Eyes: No pallor or jaundice. PERRLA, EOMI HENT: Moist oral mucus membranes. No oropharyngeal lesions. Neck: Supple. No cervical adenopathy. No JVD Cardiovascular: Tachycardic and irregularly irregular with normal heart sounds. No murmurs, rubs or gallops. No JVD. No peripheral edema. Respiratory: Normal respiratory effort with no accessory muscle use. CTAB. Gastrointestinal: Abdomen is soft, non-tender, non-distended. NABS. No hepatosplenomegaly Extremities: No edema. No calf tenderness. Good peripheral pulses Skin: Warm/Dry. No rashes. No mottling. Capillary refill is < 2 seconds Neurological: AAOx4. Intact speech & cognition. Normal gait & balance. CN II - XII grossly intact but not individually tested. No motor or sensory deficits Hematologic: No bleeding. No ecchymosis. No swollen or tender lymph nodes. Psychiatric: Cooperative. Appropriate mood and affect. Results Labs 09/02/23 15:07 09/02/23 15:07 Labs: Laboratory Results - last 24 hr 09/02/23 09/02/23 15:07 22:54 MCV 89.3 MCH 29.5 MCHC 33.0 RDW 14.4 Plt Count 164 MPV 12.1 Immature Gran % (Auto) 0.3 Neut % (Auto) 73.0 Lymph % (Auto) 14.4 L Wal[place] % (Auto) 8.5 Eos % (Auto) 3.0 Baso % (Auto) 0.8 Lymph # (Auto) 0.9 L [place] # (Auto) 0.5 Eos # (Auto) 0.2 Baso # (Auto) 0.1 Abs Immat Gran (auto) 0.02 Absolute Neuts (auto) 4.6 Absolute Nucleated RBC 0.000 Nucleated RBC % (auto) 0.0 PT 12.6 INR 1.0 Anion Gap 13 Estim Creat Clear Calc 67.7 Estimated GFR > 60 Random Glucose 94 Calcium 9.5 Magnesium 2.1 B-Natriuretic Peptide 93 COVID-19 (JUANITO) Negative COVID-19 Clin Com See Note Influenza Type A (MYLES) Negative Influenza Type B (MYLES) Negative Influenza A & B Note See Note ECG ECG interpretation date: 09/03/23 ECG interpretation time: 04:40 Prior ECG tracings: available for review Interpretation: AFib with RVR at 114 bpm; No acute ischemic changes Imaging Radiologist's Impressions: Impressions Chest X-Ray 09/02/23 14:40 IMPRESSION: Question mild CHF Assessment and Plan (1) Atrial fibrillation with RVR: Status: Acute Plan 78-year-old with past medical history of BPH, pulmonary hypertension, osteoarthritis, CVA, GERD and migraine headaches here with 1. Atrial fibrillation - new onset and with RVR - admit to telemetry - rate control - [id number] score of 2 (for male sex) & 1 for CVA (3) - start DOAC 2. Concern for CHF - CXR is concerning for CHF - however with normal BNP - continue with diuretics for now - get 2 D echo. DVT: Eliquis CODE STATUS: Full code Admission for at least 2 midnights for management of AFib with RVR Total time managing care of this patient today: 75 minutes. Quality Stroke Does the patient have a stroke diagnosis?: No VTE Prior VTE?: No VTE Risk Level:: Medical - moderate - high VTE Device Contraindication: N/A - Device Ordered VTE Drug Contraindication: N/A - Med Ordered
[2023-09-03] VITALS (8 sets, daily range): BP systolic 125–162; BP diastolic 69–112; PULSE 89–123; RESP 14–23; TEMP 36.4–37.1; O2SAT 92–97
[2023-09-03] MEDS: Apixaban 5 MG TABLET PO ×3 (00:03→20:35)
[2023-09-03] MEDS: 0.9 % Sodium Chloride Flush 3 ML SYRINGE IVFLUSH (00:05)
--- NOTE | 2023-09-03 01:08 | MHC.EDTECH ---
PATIENT URINE SAMPLE COLLECTED AND SENT TO LAB .
[2023-09-03 01:14] LABS: Appearance Urine Clear; Color Urine Yellow; Glucose Urine UA Negative (Negative); Leukocyte Esterase Urine Trace (Negative); Nitrite Urine Negative (Negative); PH 5.5 (5.0-9.0); Specific Gravity - Urine 1.015 (1.005-1.025); UMIC TRIGGER UACC YES; Urine Blood Negative (Negative); Urine Ketones Negative (Negative); Urine Protein Negative (Neg-Trace)
[2023-09-03 01:25] LABS: Bacteria Urine None Seen (None Seen); Calcium Oxalate Crystals Urine Present; Hyaline Casts Urine 0-2 /LPF (0-2); RBC Urine 0-2 /HPF (0-2); Squamous Epithelial Cell Urine 0-2 /HPF (0-2); WBC Urine 0-5 /HPF (0-5)
[2023-09-03] MEDS: Metoprolol Tartrate 5 MG/5 ML VIAL IVPUSH (05:46)
--- NOTE | 2023-09-03 05:48 | PC.NURSE ---
metoprolol given hr drops to 103 and back to 120
--- NOTE | 2023-09-03 06:06 | PC.NURSE ---
pt medicated per mar.
--- NOTE | 2023-09-03 06:08 | PC.NURSE ---
pt resting in bed, no sign of distress, pt heart rate has improved.
--- NOTE | 2023-09-03 08:16 | PC.NURSE ---
Assumed care of pt from previous RN, pt resting comfortably in bed. Pt denies any CP or SOB, states I wanna go home. Pt Afib on tele, 100's-110's. Pt given breakfast tray but reports he isn't hungry. Call hoskins within reach, pt able to make needs known appropriately.
--- NOTE | 2023-09-03 08:35 | PHA.MEDREC ---
Pharmacy Consult ? Medication Reconciliation Pharmacy has completed the medication reconciliation. patient unable to verify medication names but said he was on three of them and one of them he takes twice daily which matches with claim history.
--- NOTE | 2023-09-03 09:27 | PC.NURSE ---
Cardiovascular MD at bedside to evaluate patient.
--- NOTE | 2023-09-03 09:49 | MHC.CM.PN ---
IMM 09/03/23, Pt lives with his , who is also at this hosp now. He does not have home health services, he does not have medical equipment. He drives, and his car is here in parking lot. HCP is on file, his Marisa, confirmed. PCP confirmed, Ge Coreas. CM to follow and assist with DC planning.
--- NOTE | 2023-09-03 09:53 | P.CONCA_ITS ---
History of Present Illness History of Present Illness Date of Service: 09/03/23 Chief complaint: AFib w/ rvr Narrative: This is a cardiology consultation regarding atrial fibrillation. Patient actually presents to the hospital for complaints of shortness of breath for the last few days. In this context, he has been found to have atrial fibrillation with rapid rate. Patient denies any prior history of coronary disease myocardial infarction or cardiomyopathy or in fact any other cardiac issues. Patient's nurse states that he may be taking Eliquis at home but patient is very vague about it. Hence not clear if atrial fibrillation is an old issue a new issue. Otherwise, he denies any other complaints like chest pain. He does not feel any palpitations. Review of Systems 2 Review of Systems: Yes all other systems are reviewed and are negative Constitutional: Constitutional: Reports as per HPI and Reports no additional constitutional complaints Eyes: Eyes: Reports as per HPI and Denies no additional eye complaints ENT: Denies system reviewed and no additional complaints, except as documented and Reports as per HPI Cardiovascular: Cardiovascular: Reports as per HPI, Reports no additional cardiovascular complaints, Denies acrocyanosis, Denies cool extremities, Denies chest pain, Denies leg edema, Denies lightheadedness, Denies palpitations and Reports dyspnea Respiratory: Respiratory: Reports as per HPI, Denies no additional respiratory complaints and Reports dyspnea Gastrointestinal: Gastrointestinal: Reports as per HPI and Denies no additional gastrointestinal complaints Genitourinary: Genitourinary: Reports no additional male genitourinary complaints and Reports as per HPI Musculoskeletal: Musculoskeletal: Reports no additional musculoskeletal complaints and Reports as per HPI Integumentary/Breasts: Skin/Breast: Reports system reviewed and no additional complaints, except as docu Neurologic: Reports system reviewed and no additional complaints, except as documented and Reports as per HPI Psychiatric: Psychiatric: Reports no additional psychiatric complaints and Reports as per HPI Endocrine: Endocrine: Reports no additional endocrine complaints, Reports as per HPI and Denies palpitations Hematologic/Lymphatic: Hematologic/Lymphatic: Reports no additional hematologic/lymphatic complaints and Reports as per HPI Allergic/Immunologic: Allergic/Immunologic: Reports no additional allergic/immunologic complaints and Reports as per HPI PMF Past Medical History Medical History Pulmonic stenosis BPH (benign prostatic hyperplasia) Smoker History of ETOH abuse Hx of gastritis Migraine Family History Family History Brother Mental health disorder Surgical History Surgical History Status post incision and drainage Hx of colonoscopy History of esophagogastroduodenoscopy (EGD) Social History Social History Housing: Apartment Patient Tobacco Use Status: Current everyday Tobacco user Cigarettes Per Day: 5 Smoked in Last 30 Days: No e-Cigarette/Vaping Use: Never Used Second Hand Smoke Exposure: Yes Use of substances other than those prescribed or required for medical reasons: No Advance Directives: Yes Advance Directives on File: Yes Advance Directives Date on File: 09/03/23 service: No Current occupational status: retired Cognitive needs: No Hearing needs: No Vision needs: No Meds Allergies Allergy/AdvReac Type Severity Reaction Status Date / Time No Known Allergies Allergy Verified 09/02/23 14:01 [No Known Allergies*] Active Medications: Current Medications Acetaminophen (Acetaminophen 325 Mg Tablet) 650 mg PO Q6H PRN PRN Reason: Pain, Mild (Pain Scale 1-3) Al Hydroxide/Mg Hydroxide (Magnesium Hydrox/Alum Hydrox 30 Ml Oral.Susp) 30 ml PO Q4H PRN PRN Reason: Heartburn/Nausea Apixaban (Apixaban 5 Mg Tablet) 5 mg PO BID [facility] Last Admin: 09/03/23 08:05 Dose: 5 mg Docusate Sodium (Docusate Sodium 100 Mg Capsule) 100 mg PO BID [facility] Last Admin: 09/03/23 08:06 Dose: Not Given Melatonin (Melatonin 3 Mg Tablet) 6 mg PO BEDTIME PRN PRN Reason: Insomnia Nitroglycerin (Nitroglycerin 0.4 Mg Tab.Subl) 0.4 mg SUBLINGUAL Q5MX3 PRN PRN Reason: Chest Pain Ondansetron HCl (Ondansetron Hcl 4 Mg/2 Ml Vial) 4 mg IVPUSH Q8H PRN PRN Reason: Nausea and Vomiting Oxycodone HCl (Oxycodone Hcl Immed Release 5 Mg Tablet) 5 mg PO Q6H PRN PRN Reason: Pain, Severe (Pain Scale 7-10) Senna (Sennosides 8.6 Mg Tablet) 17.2 mg PO BEDTIME PRN PRN Reason: Constipation Sodium Chloride (0.9 % Sodium Chloride Flush 3 Ml Syringe) 3 ml IVFLUSH QSHIFT [facility] Last Admin: 09/03/23 07:49 Dose: Not Given Home Medications Medication Instructions Recorded Confirmed Last Taken Type omeprazole 20 mg capsule,delayed 20 mg PO DAILY 04/16/22 09/03/23 Unknown History release Physical Exam 2 Vital Signs: Vital Signs: Last Vital Signs Temp 97.9 F 09/03/23 07:45 Pulse 108 H 09/03/23 07:45 Resp 23 H 09/03/23 07:45 BP 142/97 H 09/03/23 07:45 Pulse Ox 94 09/03/23 07:45 O2 Del Method Room Air 09/03/23 07:45 BMI result Body Mass Index 31.6 Const: General: comfortable and no acute distress O rientation/consciousness: patient oriented x3 HEENT: Other: Unremarkable Head: Yes normal to inspection Neck: Neck: Yes normal visual inspection Chest: Chest palpation & inspection: normal inspection of the chest Resp: Auscultation: clear to auscultation bilaterally Cardio: Palpation: normal PMI Heart sounds: S1 normal heart sound present, S2 normal heart sound present, no gallops, Murmur heart sound present systolic II/ and at the right sternal border and no rubs GI: Palpation (GI): Soft to palpation Back/Spine/Pelvis: Other: unremarkable Skin: General skin exam: no rashes or lesions noted Neuro: General: patient oriented x3 Extrem: General: Yes normal to inspection Psych: Mental Status: mental status grossly normal Objective Labs and Meds 09/02/23 15:07 09/02/23 15:07 Lab results: Laboratory Results - last 24 hr 09/02/23 09/02/23 09/02/23 15:07 22:54 23:14 WBC 6.3 RBC 4.68 Hgb 13.8 L Hct 41.8 L MCV 89.3 MCH 29.5 MCHC 33.0 RDW 14.4 Plt Count 164 MPV 12.1 Immature Gran % (Auto) 0.3 Neut % (Auto) 73.0 Lymph % (Auto) 14.4 L [place] % (Auto) 8.5 Eos % (Auto) 3.0 Baso % (Auto) 0.8 Lymph # (Auto) 0.9 L [place] # (Auto) 0.5 Eos # (Auto) 0.2 Baso # (Auto) 0.1 Abs Immat Gran (auto) 0.02 Absolute Neuts (auto) 4.6 Absolute Nucleated RBC 0.000 Nucleated RBC % (auto) 0.0 PT 12.6 INR 1.0 Sodium 145 Potassium 4.3 Chloride 110 H Carbon Dioxide 26 Anion Gap 13 BUN 21 H Creatinine 0.89 Estim Creat Clear Calc 67.7 Estimated GFR > 60 Random Glucose 94 Calcium 9.5 Magnesium 2.1 Troponin I High Sens 7.9 9.1 B-Natriuretic Peptide 93 Urine Color Urine Appearance Urine pH Ur Specific [place] Urine Protein Urine Glucose (UA) Urine Ketones Urine Blood Urine Nitrite Ur Leukocyte Esterase Urine RBC Urine WBC Ur Squamous Epith Cells Calcium Oxalate Crystal Urine Bacteria Hyaline Casts COVID-19 ([facility]) Negative COVID-19 Clin Com See Note Influenza Type A (MYLES) Negative Influenza Type B (MYLES) Negative Influenza A & B Note See Note 09/03/23 01:02 WBC RBC Hgb Hct MCV MCH MCHC RDW Plt Count MPV Immature Gran % (Auto) Neut % (Auto) Lymph % (Auto) [place] % (Auto) Eos % (Auto) Baso % (Auto) Lymph # (Auto) [place] # (Auto) Eos # (Auto) Baso # (Auto) Abs Immat Gran (auto) Absolute Neuts (auto) Absolute Nucleated RBC Nucleated RBC % (auto) PT INR Sodium Potassium Chloride Carbon Dioxide Anion Gap BUN Creatinine Estim Creat Clear Calc Estimated GFR Random Glucose Calcium Magnesium Troponin I High Sens B-Natriuretic Peptide Urine Color Yellow Urine Appearance Clear Urine pH 5.5 Ur Specific [place] 1.015 Urine Protein Negative Urine Glucose (UA) Negative Urine Ketones Negative Urine Blood Negative Urine Nitrite Negative Ur Leukocyte Esterase Trace H Urine RBC 0-2 Urine WBC 0-5 Ur Squamous Epith Cells 0-2 Calcium Oxalate Crystal Present Urine Bacteria None Seen Hyaline Casts 0-2 COVID-19 ([facility]) COVID-19 Clin Com Influenza Type A (MYLES) Influenza Type B (MYLES) Influenza A & B Note ECG Interpretation: EKG with atrial fibrillation rate of 114/Min with PVCs or aberrant conduction. Imaging Radiologist's impression: Impressions Chest X-Ray 09/02/23 14:40 IMPRESSION: Question mild CHF Assessment and Plan (1) Atrial fibrillation with RVR: Status: Acute In the previous EKG from June, he was sinus rhythm but currently in atrial fibrillation. Start diltiazem 30 mg Q 6 hourly. Eliquis for anticoagulation. (2) Acute diastolic (congestive) heart failure: Status: Acute Echocardiogram from January of this year shows LVEF of 64%. At that time, suspected normal diastolic function. Mild aortic valve calcification and possible mild pulmonic stenosis. He could have gone into congestive heart failure because of the atrial fibrillation rapid rate. Empiric diuretics can be used for now. Procedures Date of Service Date of Service: 09/03/23
--- NOTE | 2023-09-03 11:43 | PC.NURSE ---
pt a&o x4, pleasant, calm, and cooperative. ambulates to bathroom with steady gait. on bedside monitor, call hoskins within reach. plan of care ongoing.
[2023-09-03] MEDS: dilTIAZem HCL 30 MG TABLET PO (12:31)
--- NOTE | 2023-09-03 13:04 | PC.NURSE ---
pt consumed lunch at bedside. currently laying back in bed, resting quietly on stretcher. in no apparent distress. awaiting bed assignment. call hoskins within pt reach. pt make needs known. plan of care ongoing.
--- NOTE | 2023-09-03 13:41 | PC.NURSE ---
pt visiting with who is also patient of ED.
--- NOTE | 2023-09-03 15:39 | P.PNIM_ITS ---
Subjective Subjective Date of Service: 09/03/23 Interval History: remains asymptomatic with AFib. Ventricular response very to. No other acute issues Review of Systems denies chest pain Denies shortness of breath Denies nausea vomiting and diarrhea Denies fever chills Physical Exam 2 Vital Signs: Vital Signs: Last Vital Signs Temp 98.2 F 09/03/23 09:59 Pulse 123 H 09/03/23 12:31 Resp 20 09/03/23 12:31 BP 139/100 H 09/03/23 12:31 Pulse Ox 95 09/03/23 12:31 O2 Del Method Room Air 09/03/23 12:31 BMI result Body Mass Index 31.6 Const: Other: awake alert no acute distress Resp: Other: clear to auscultation bilaterally no rales rhonchi or wheezes Cardio: Other: irregularly irregular; no S4; positive S1-S2; no S3 murmurs rubs or gallops GI: Other: soft nontender nondistended normoactive bowel sounds Extrem: Other: no edema bilaterally Objective Data Active Medications Acetaminophen (Acetaminophen 325 Mg Tablet) 650 mg PO Q6H PRN PRN Reason: Pain, Mild (Pain Scale 1-3) Al Hydroxide/Mg Hydroxide (Magnesium Hydrox/Alum Hydrox 30 Ml Oral.Susp) 30 ml PO Q4H PRN PRN Reason: Heartburn/Nausea Apixaban (Apixaban 5 Mg Tablet) 5 mg PO BID [facility] Last Admin: 09/03/23 08:05 Dose: 5 mg Documented By: NOAH Diltiazem HCl (Diltiazem Hcl 30 Mg Tablet) 30 mg PO QID [facility]; Protocol Last Admin: 09/03/23 12:31 Dose: 30 mg Documented By: MANUEL Docusate Sodium (Docusate Sodium 100 Mg Capsule) 100 mg PO BID [facility] [place] Last Admin: 09/03/23 08:06 Dose: Not Given Documented By: NOAH Non-Admin Reason: Patient Refused Melatonin (Melatonin 3 Mg Tablet) 6 mg PO BEDTIME PRN PRN Reason: Insomnia Nitroglycerin (Nitroglycerin 0.4 Mg Tab.Subl) 0.4 mg SUBLINGUAL Q5MX3 PRN PRN Reason: Chest Pain Ondansetron HCl (Ondansetron Hcl 4 Mg/2 Ml Vial) 4 mg IVPUSH Q8H PRN PRN Reason: Nausea and Vomiting Oxycodone HCl (Oxycodone Hcl Immed Release 5 Mg Tablet) 5 mg PO Q6H PRN PRN Reason: Pain, Severe (Pain Scale 7-10) Senna (Sennosides 8.6 Mg Tablet) 17.2 mg PO BEDTIME PRN PRN Reason: Constipation Sodium Chloride (0.9 % Sodium Chloride Flush 3 Ml Syringe) 3 ml IVFLUSH QSHIFT [facility] Last Admin: 09/03/23 15:09 Dose: Not Given Documented By: DEMOND Non-Admin Reason: Med Not Available Labs 09/02/23 15:07 09/02/23 15:07 Labs: Laboratory Results - last 24 hr 09/02/23 09/02/23 09/03/23 15:07 22:54 01:02 Anion Gap 13 Estim Creat Clear Calc 67.7 Estimated GFR > 60 Random Glucose 94 Calcium 9.5 Magnesium 2.1 B-Natriuretic Peptide 93 Urine Color Yellow Urine Appearance Clear Urine pH 5.5 Ur Specific [place] 1.015 Urine Protein Negative Urine Glucose (UA) Negative Urine Ketones Negative Urine Blood Negative Urine Nitrite Negative Ur Leukocyte Esterase Trace H Urine RBC 0-2 Urine WBC 0-5 Ur Squamous Epith Cells 0-2 Calcium Oxalate Crystal Present Urine Bacteria None Seen Hyaline Casts 0-2 COVID-19 ([facility]) Negative COVID-19 Clin Com See Note Influenza Type A (MYLES) Negative Influenza Type B (MYLES) Negative Influenza A & B Note See Note Assessment and Plan (1) Atrial fibrillation with RVR: Status: Acute (2) Acute diastolic (congestive) heart failure: Status: Acute Plan 78-year-old with past medical history of BPH, pulmonary hypertension, osteoarthritis, CVA, GERD and migraine headaches here with 1. Atrial fibrillation New onset with rapid ventricular response; remains asymptomatic with heart rate -telemetry - Cardizem 30 mg p.o. q.i.d.; adjust as indicated - [id number] score of 2 (for male sex) & 1 for CVA (3) - start DOAC - cardiology input appreciated 2.Acute diastolic CHF - continue IV Lasix as ordered - rate control.... adjust as indicated -follow renals/divalents Eliquis Full code Requires ongoing hospitalization to stabilize atrial fibrillation with rapid ventricular response; needs to be continuously monitored on telemetry. Ongoing specialist input required Quality Stroke Does the patient have a stroke diagnosis?: No VTE Prior VTE?: No VTE Risk Level:: Medical - moderate - high VTE Device Contraindication: N/A - Device Ordered VTE Drug Contraindication: N/A - Med Ordered
--- NOTE | 2023-09-03 16:22 | PC.NURSE ---
pt resting quielty on stretcher. will ambulate to bathroom with steady gait when needed. call hoskins within reach. pt offers no complaints melissa.
--- NOTE | 2023-09-03 18:37 | PC.NURSE ---
pt eating dinner at bedside.
[2023-09-03] MEDS: dilTIAZem HCL 60 MG TABLET PO ×2 (19:07→23:02)
--- NOTE | 2023-09-03 19:09 | PC.NURSE ---
Assumed care for pt. A-fib on monitor with HR 115-130. Denies chest pain. O2 sat 95% on RA. Pt reports SOB. Breaths are regular even and labored. No distress noted. Medicated with Dilt PO as ordered. Pending bed assignment. Pt aware of plan of care.
[2023-09-03] MEDS: Docusate Sodium 100 MG CAPSULE PO (20:35)
[2023-09-04] VITALS: BP 124/75; PULSE 73; RESP 20; TEMP 36.1; O2SAT 94
[2023-09-04] MEDS: 0.9 % Sodium Chloride Flush 3 ML SYRINGE IVFLUSH ×2 (00:01→09:54)
[2023-09-04 03:19] VITALS: BP 147/89; PULSE 85; RESP 20; TEMP 37; O2SAT 94
[2023-09-04] MEDS: dilTIAZem HCL 60 MG TABLET PO ×2 (05:02→09:53)
[2023-09-04 05:55] LABS: MANUAL DIFF FLAG NO
[2023-09-04 06:17] LABS: Basophils Absolute Auto 0.1 X10*3/uL (0.0-0.2); Basophils Percent Auto 0.9 % (0-2); Eosinophils Absolute Auto 0.1 X10*3/uL (0.0-0.4); Eosinophils Percent Auto 1.5 % (0-4); Hemoglobin 12.3 g/dl (14.0-18.0); Imm Gran Abs Auto 0.02 X10*3/uL (0.00-0.03); Imm Gran Pct Auto 0.3 % (0.0-0.4); Lymphocytes Absolute Auto 0.9 X10*3/uL (1.2-4.9); Lymphocytes Percent Auto 15.4 % (20-40); Mean Corpuscular HGB Conc 33.2 g/dl (31.0-36.0); Mean Corpuscular Volume 90.2 fL (80.0-98.0); Mean Platelet Volume 11.9 fL (9.4-12.4); Monocytes Absolute Auto 0.6 X10*3/uL (0.1-1.2); Monocytes Percent Auto 9.9 % (2-11); Neutrophils Absolute Auto 4.2 x10*3/uL (2.0-8.3); Platelet Count 160 X10*3/uL (160-400); Red Cell Distribution Width 14.4 % (11.0-16.0); White Blood Count 5.9 X10*3/uL (4.8-10.8)
[2023-09-04 06:18] LABS: Alanine Aminotransferase 79 U/L (0-40); Albumin Level 3.8 g/dL (3.5-5.0); Alkaline Phosphatase 114 U/L (39-117); Anion Gap 13 (12-20); Aspartate Amino Transferase 49 U/L (5-37); Bilirubin Total 0.7 mg/dL (0.0-1.0); Blood Urea Nitrogen 20 mg/dL (9-16); Carbon Dioxide 26 mmol/L (22-29); Chloride 109 mmol/L (96-108); Creatinine Clr Calc Pharmacy 70.1; Estimated Glomerular Filt Rate > 60; Glucose Fasting 102 mg/dL (60-99); Potassium 3.7 mmol/L (3.3-5.1); Sodium 144 mmol/L (135-145); Total Protein 6.1 g/dL (6.5-8.0)
[2023-09-04 07:20] VITALS: BP 137/90; PULSE 85; RESP 13; TEMP 36.9; O2SAT 94
[2023-09-04] MEDS: Apixaban 5 MG TABLET PO (09:53)
[2023-09-04] MEDS: Docusate Sodium 100 MG CAPSULE PO (09:54)
--- NOTE | 2023-09-04 10:59 | PM.PNCARD ---
Subjective Subjective Date of Service: 09/04/23 Interval history: He states he is feeling fine. No new complaints. Review of Systems Review of Systems Yes all other systems are reviewed and are negative Constitutional: Reports as per HPI and Reports no additional constitutional complaints Eyes: Reports as per HPI and Denies no additional eye complaints Denies system reviewed and no additional complaints, except as documented and Reports as per HPI Cardiovascular: Reports as per HPI, Reports no additional cardiovascular complaints, Denies acrocyanosis, Denies cool extremities, Denies chest pain, Denies leg edema, Denies lightheadedness, Denies palpitations and Denies dyspnea Respiratory: Reports as per HPI, Denies no additional respiratory complaints and Denies dyspnea Gastrointestinal: Reports as per HPI and Denies no additional gastrointestinal complaints Genitourinary: Reports no additional male genitourinary complaints and Reports as per HPI Musculoskeletal: Reports no additional musculoskeletal complaints and Reports as per HPI Skin/Breast: Reports system reviewed and no additional complaints, except as docu Reports system reviewed and no additional complaints, except as documented and Reports as per HPI Psychiatric: Reports no additional psychiatric complaints and Reports as per HPI Endocrine: Reports no additional endocrine complaints, Reports as per HPI and Denies palpitations Hematologic/Lymphatic: Reports no additional hematologic/lymphatic complaints and Reports as per HPI Allergic/Immunologic: Reports no additional allergic/immunologic complaints and Reports as per HPI Physical Exam Vital Signs: Last Vital Signs Temp 98.5 F 09/04/23 07:20 Pulse 85 09/04/23 07:20 Resp 13 09/04/23 07:20 BP 137/90 H 09/04/23 07:20 Pulse Ox 94 09/04/23 07:20 O2 Del Method Room Air 09/04/23 07:20 BMI result Body Mass Index 31.6 Const General: comfortable and no acute distress Orientation/consciousness: patient oriented x3 HEENT Other: Unremarkable Head: Yes normal to inspection Neck Neck: Yes normal visual inspection Chest Chest palpation & inspection: normal inspection of the chest Resp Auscultation: clear to auscultation bilaterally Cardio Palpation: normal PMI Heart sounds: S1 normal heart sound present, S2 normal heart sound present, no gallops, no murmurs and no rubs GI Palpation (GI): Soft to palpation Back/Spine/Pelvis Other: unremarkable Skin General skin exam: no rashes or lesions noted Neuro General: patient oriented x3 Extrem General: Yes normal to inspection Psych Mental Status: mental status grossly normal Objective Labs and Meds 09/04/23 05:51 09/04/23 05:51 Lab results: Laboratory Results - last 24 hr 09/04/23 05:51 WBC 5.9 RBC 4.10 L Hgb 12.3 L Hct 37.0 L MCV 90.2 MCH 30.0 MCHC 33.2 RDW 14.4 Plt Count 160 MPV 11.9 Immature Gran % (Auto) 0.3 Neut % (Auto) 72.0 Lymph % (Auto) 15.4 L [place] % (Auto) 9.9 Eos % (Auto) 1.5 Baso % (Auto) 0.9 Lymph # (Auto) 0.9 L [place] # (Auto) 0.6 Eos # (Auto) 0.1 Baso # (Auto) 0.1 Abs Immat Gran (auto) 0.02 Absolute Neuts (auto) 4.2 Absolute Nucleated RBC 0.000 Nucleated RBC % (auto) 0.0 Sodium 144 Potassium 3.7 Chloride 109 H Carbon Dioxide 26 Anion Gap 13 BUN 20 H Creatinine 0.86 Estim Creat Clear Calc 70.1 Estimated GFR > 60 Fasting Glucose 102 H Calcium 9.0 Total Bilirubin 0.7 AST 49 H ALT 79 H Alkaline Phosphatase 114 Total Protein 6.1 L Albumin 3.8 Progress Note: A&P Assessment and plan (1) Atrial fibrillation with RVR: Status: Acute Assessment and Plan: In the previous EKG from June, he was sinus rhythm but currently in atrial fibrillation. On telemetry, rate is about 100/Min. He is on diltiazem 60 mg Q 6. We can change that to sustained release preparation, 240 mg daily. Continue with anticoagulation. (2) Acute diastolic (congestive) heart failure: Status: Acute Assessment and Plan: Echocardiogram from January of this year shows LVEF of 64%. At that time, suspected normal diastolic function. Mild aortic valve calcification and possible mild pulmonic stenosis. He could have gone into congestive heart failure because of the atrial fibrillation rapid rate. He got IV diuretics on arrival but not anymore. Clinically looks better. Time Spent With Patient Time: Total time managing care of this patient today 40 minutes. This includes time spent in review of chart, laboratory data, imaging studies, review of telemetry, counseling patient, discussion with hospitalist, RN, documentation, coordination of care. Progress Note: Quality Stroke Does the patient have a stroke diagnosis?: No Procedures Date of Service Date of Service: 09/04/23
[2023-09-04 11:35] VITALS: BP 129/79; PULSE 88; RESP 13; TEMP 36.4; O2SAT 93
--- NOTE | 2023-09-04 11:48 | PM.DS ---
DS: Providers Provider Date of Service: 09/04/23 Date of admission: 09/02/23 23:43 Date of discharge: 09/04/23 Primary care physician: DEQUAN HarmonP- Consults: 09/03/23 08:52 Consult to Cardiology Routine Consulting Provider: [facility] Reason for consultation: New onset atrial fibrillation with RVR Has provider been notified: Yes Attending physician on discharge: Al Mercer Discharging clinician: Lesvia Schultz DS: Diagnosis Discharge Diagnosis (1) Atrial fibrillation with RVR: Status: Acute (2) Acute diastolic (congestive) heart failure: Status: Acute DS: Summary Hospital Course Hospital Course: From H&P on the day of admission Patient is a 78-year-old male with past medical history of BPH, pulmonary hypertension, osteoarthritis, CVA, GERD, migraine headaches and who is a former smoker who presented to the emergency room complaining of shortness of breath for the past couple of days that has not been associated with fever, chills, cough, sore throat or body aches. He reported experiencing worsening of shortness of breath when he lies flat and also has exertional dyspnea. He is a former smoker but denies having any significant cardiac history and is not diabetic or hypertensive. While in the ED, he received Levalbuterol updrafts an yhen went into atrial fibrillation with RVR with rates of upto 140 beats per minute. Admission was requested for further care. Atrial fibrillation Patient was admitted to the hospital for management of new onset atial fibrillation with RVR. He was started on short acting cardizem and AC with Eliquis for elevated [id number] score. He was seen in consult by cardiology and heart rate and sob improved. He will be converted to long acting cardizem and will need outpatient follow up with cardiology. Initially he was thought to be in diastolic CHF likely from rapid afib and received IV lasix with good effect. ECHO obtained in january showed preserved EF. Breathing has improved and he is ambulating without difficulty. He follows in pulmonology clinic and should keep outpatient appointment. in past PFTs have shown likely obesity contributing to respiratory issues. Also has long history of smoking. Covid, flu a and b were negative upon admission. Time Attestation Discharge coordination time: Greater than 30 minutes Quality: Safe Use of Opioids Does Pt have an Active Cancer Diagnosis on the Problem List?: No Quality: Stroke Does the patient have a stroke diagnosis?: No Physical Exam Vital Signs: Vital Signs: Last Vital Signs Temp 97.5 F 09/04/23 11:35 Pulse 88 09/04/23 11:35 Resp 13 09/04/23 11:35 BP 129/79 09/04/23 11:35 Pulse Ox 93 09/04/23 11:35 O2 Del Method Room Air 09/04/23 11:35 BMI result Body Mass Index 31.6 Const: General: cooperative, comfortable, no acute distress, alert and awake Nutritional Appearance: overweight Orientation/consciousness: patient oriented x3 Resp: Other: diminished breath sounds, no rales or wheezes Effort & Inspection: normal respiratory effort, able to speak in complete sentences, no respiratory distress and no use of accessory muscles Cardio: Rate: regular rate Neuro: Other: grossly nonfocal General: patient oriented x3 and moves all extremities DS: Data Data Completed and Pending Labs on day of discharge: Laboratory Results - last 24 hr 09/04/23 05:51 WBC 5.9 RBC 4.10 L Hgb 12.3 L Hct 37.0 L MCV 90.2 MCH 30.0 MCHC 33.2 RDW 14.4 Plt Count 160 MPV 11.9 Immature Gran % (Auto) 0.3 Neut % (Auto) 72.0 Lymph % (Auto) 15.4 L [place] % (Auto) 9.9 Eos % (Auto) 1.5 Baso % (Auto) 0.9 Lymph # (Auto) 0.9 L [place] # (Auto) 0.6 Eos # (Auto) 0.1 Baso # (Auto) 0.1 Abs Immat Gran (auto) 0.02 Absolute Neuts (auto) 4.2 Absolute Nucleated RBC 0.000 Nucleated RBC % (auto) 0.0 Sodium 144 Potassium 3.7 Chloride 109 H Carbon Dioxide 26 Anion Gap 13 BUN 20 H Creatinine 0.86 Estim Creat Clear Calc 70.1 Estimated GFR > 60 Fasting Glucose 102 H Calcium 9.0 Total Bilirubin 0.7 AST 49 H ALT 79 H Alkaline Phosphatase 114 Total Protein 6.1 L Albumin 3.8 Discharge Plan Discharge Anticipated Discharge Date/Time: 09/04/23 11:54 Patient Disposition: Home, Self-Care Discharge Diagnosis: new onset atrial fibrillation with RVR acute diastolic CHF due to afib with RVR Referrals: Ge Coreas, [facility]AD[facility]-BC [Primary Care Provider] - 1 Week Angelo Prieto MD [Physician] - 1 Week Discharge Medications: New Eliquis 5 mg Tablet 5 mg PO BID 30 Days Qty: 60 0RF diltiazem HCl 240 mg Capsule,Extended Release 24hr 240 mg PO DAILY 30 Days Qty: 30 0RF Protocol: Hold for SBP/HR < HOLD for SBP < : 90 HOLD for HR < : 60 Continued atorvastatin 20 mg tablet 20 mg PO BEDTIME Qty: 90 1RF omeprazole 20 mg capsule,delayed release(DR/EC) 20 mg PO DAILY Discontinued celecoxib 200 mg capsule 200 mg PO BID Qty: 60 3RF Discharge Orders: Discharge Order (Routine); Ordered 09/04/23 Ordered By: Lesvia Schultz Activity on Discharge: As tolerated Stand Alone Forms: Patient Portal Discharge page Care Plan Goals: see below Health Concerns: new onset atrial fibrillation diastolic CHF Plan of Treatment: start taking cardizem daily to control heart rate start taking Eliquis to reduce the risk of stroke recommend to follow up with pulmonology as an outpatient as scheduled don't take NSAIDs like motrin, ibuprofen, celecoxib etc while you are taking a blood thinner call to schedule follow up appointment with cardiology and with PCP Assessment: see discharge summary
== END 2023-09-04 13:25 | disposition home or self-care (01) | DRG 308 ==
LOC: HO.ED 23:06 → HO.EDOVER 23:50 → HO.IMC 09-03 20:41
PROVIDERS: Hospitalist; Physician Assistant Medical; Admitting Provider Internal Medicine; Emergency Provider Student in an Organized Health Care Education/Training Program; PCP Nurse Practitioner Family; Visit Provider Physician Assistant Medical
DX: I48.91 Unspecified atrial fibrillation (principal); I50.31 Acute diastolic (congestive) heart failure; I70.0 Atherosclerosis of aorta; E66.9 Obesity, unspecified; Z68.31 Body mass index [BMI] 31.0-31.9, adult; Z20.822 Contact with and (suspected) exposure to COVID-19; Z87.891 Personal history of nicotine dependence; Z79.899 Other long term (current) drug therapy
CPT/HCPCS: 36415; 71046; 80048; 80053; 81001; 83735; 83880; 84484; 85025; 85610; 87502; 87635; 93005; 94640; 99285; J1940; Q9957

== ENCOUNTER → 2023-09-02 23:43 | Outpatient (BNV) | payer OTHER, SELFPAY | PROVIDERS: Admitting Provider Internal Medicine; Emergency Provider Student in an Organized Health Care Education/Training Program; PCP Nurse Practitioner Family; Visit Provider Internal Medicine | DX: I48.91 Unspecified atrial fibrillation (principal); I50.31 Acute diastolic (congestive) heart failure; R93.41 Abnormal radiologic findings on diagnostic imaging of renal pelvis, ureter, or bladder | CPT/HCPCS: 93010; 99222; 99233 ==

== ENCOUNTER → 2023-09-02 23:43 | Outpatient (BNV) | payer OTHER, SELFPAY | PROVIDERS: Admitting Provider Internal Medicine; Emergency Provider Student in an Organized Health Care Education/Training Program; PCP Nurse Practitioner Family; Visit Provider Internal Medicine | DX: I48.91 Unspecified atrial fibrillation (principal); I50.31 Acute diastolic (congestive) heart failure | CPT/HCPCS: 99223; 99233; 99239 ==

== ENCOUNTER 2023-09-15 14:30 | Outpatient (AMB) | payer OTHER, SELFPAY ==
--- NOTE | 2023-09-15 14:35 | MHC.PC.OV ---
Vital Signs 09/15/23 14:42 Weight 196 lb BP 100/60 Blood Pressure Location Rt brachial Position Sitting Pulse 61 Pulse Source Pulse Oximeter Pulse Oximetry (%) 98 Oxygen Delivery Method Room Air Intake Visit Reasons: HDF-med changes Intake Note: Patient here for HDF. Allergies No Known Allergies [No Known Allergies*] Allergy (Verified 09/15/23 16:46) Medication List - Last Reconciled 09/15/23 by Ge Coreas POCKET CUTTER- apixaban (Eliquis) 5 mg PO BID 30 days atorvastatin 20 mg PO BEDTIME diltiazem HCl 240 mg See Protocol PO DAILY 30 days omeprazole 20 mg PO DAILY Tobacco use date assessed: 09/15/23 Fall risk assessment: No Falls in past year Last assessed Fall Risk: 09/15/23 Dental Screening Dental Screen Date: 09/15/23 Did you have a dental visit in the last 12 months?: No Did you have a dental problem in the last 6 months where you did not have access to dental care?: No Was dental information given to patient?: Patient declined HPI HDF-med changes HPI Details Pt was seen in the ER on 09/02 c/o shortness of breath. Labs were negative for leukocytosis and thrombocytopenia, did show normocytic anemia. Coagulation studies were WNL. Troponin was 7.9. EKG showed afib with RVR, HR 114. Chest XR was consistent with mild CHF. Pt was given levalbuterol updrafts. He was started on short acting cardizem and AC with Eliquis for elevated [id number] score. Pt's HR and shortness of breath improved. He was switched to long acting cardizem. Pt was also given IV lasix with good effect. He was d/c on eliquis and diltiazem. Pt has a hx of COPD. Will order PFT testing. Pt is following up with pulmonology for low-dose CTs. Pt is seeing cardiology tomorrow. Denies chest pain, shortness of breath, palpitations, and dizziness. Pt's reports that pt has orthopnea??? pt does not seem to acknowledge this. [facility] Medical History Pulmonic stenosis BPH (benign prostatic hyperplasia) Smoker History of ETOH abuse Hx of gastritis Migraine Surgical History Status post incision and drainage Hx of colonoscopy History of esophagogastroduodenoscopy (EGD) Family History Brother Mental health disorder Social History Household Members: Spouse Housing: Apartment Do you presently have visiting nurse or other home services: No Patient Tobacco Use Status: Former Tobacco user Quit Date: March 2023 Tobacco use type: Cigarette Cigarettes Per Day: 7 e-Cigarette/Vaping Use: Never Used Second Hand Smoke Exposure: Yes Advance Directives Date on File: 09/03/23 service: No Current occupational status: retired Cognitive needs: No Hearing needs: No Vision needs: No Questionnaire Thrive Questionnaire Date Thrive assessed: 09/03/23 JASBIR-7 AMB Questionnaire JASBIR-7 Date JASBIR - 7 assessed: 04/16/22 Source: Developed by Drs. Andrew Flowers, Lauren Humphries, Vimal Zuniga and colleagues, with an educational garrick from [employer]. Review of Systems Const Reports as per HPI Physical exam (Primary Care) Vital Signs: Last Vital Signs Pulse 61 09/15/23 14:42 BP 100/60 09/15/23 14:42 Pulse Ox 98 09/15/23 14:42 Oxygen Delivery Method Room Air 09/15/23 14:42 Tobacco/Smoking Status: Tobacco use Status Tobacco use date assessed 09/15/23 09/15/23 14:45 Patient Tobacco Use Status Former Tobacco user 09/15/23 14:36 Tobacco use type Cigarette 09/15/23 14:36 e-Cigarette/Vaping Use Never Used 09/15/23 14:36 Thrive Assessment: Date of Thrive Assessment Date Thrive assessed 09/03/23 09/15/23 14:36 Const General: cooperative Orientation/consciousness: patient oriented x3 Resp Effort & Inspection: normal respiratory effort Auscultation: diminished lung sounds Cardio Rate: regular rate Rhythm: abnormal rhythm irregularly irregular Heart sounds: S1 normal heart sound present and S2 normal heart sound present Neuro General: patient oriented x3 Psych Appearance: grossly normal Mental Status: mental status grossly normal Speech and movement: Normal speech and movement present Affect: normal affect Attitude: cooperative Thought process: Normal thought process present Thought content: Normal thought content present Insight: Good insight present (Psych) Judgement: Good judgement present (Psych) Assessment and Plan Assessment & Plan (1) COPD (chronic obstructive pulmonary disease): Code(s): J44.9 - Chronic obstructive pulmonary disease, unspecified Plan: PFT testing ordered, pt to follow up with pulmonary (2) Atrial fibrillation with RVR: Code(s): I48.91 - Unspecified atrial fibrillation Plan: on blood thinner and rate control Plan The patient agreed to the use of a medical laboratory specialist for this encounter. Scribed for MONICA Dietz by Lou Moreland medical laboratory specialist, on 09/15/2023 at 14:50 EST. Orders: Orders Lipid Panel Today I48.91 - Unspecified atrial fibrillation, J44.9 - Chronic obstructive pulmonary disease, unspecified PFT pulmonary function test Today J44.9 - Chronic obstructive pulmonary disease, unspecified Complete Blood Count Auto Diff Today I48.91 - Unspecified atrial fibrillation, J44.9 - Chronic obstructive pulmonary disease, unspecified Comprehensive [place]. Panel Fast Today I48.91 - Unspecified atrial fibrillation, J44.9 - Chronic obstructive pulmonary disease, unspecified TSH reflex Free T4 Today I48.91 - Unspecified atrial fibrillation, J44.9 - Chronic obstructive pulmonary disease, unspecified UA CC w/rflx Micro + Cult Today I48.91 - Unspecified atrial fibrillation, J44.9 - Chronic obstructive pulmonary disease, unspecified Coding Level of Care Code Est Pt Level 3 (92799) Diagnoses COPD (chronic obstructive pulmonary disease) J44.9 Atrial fibrillation with RVR I48.91
[2023-09-15 14:42] VITALS: BP 100/60; PULSE 61; O2SAT 98
== END 2023-09-15 15:37 | disposition home or self-care (01) ==
PROVIDERS: PCP Nurse Practitioner Family; Visit Provider Nurse Practitioner Family
DX: J44.9 Chronic obstructive pulmonary disease, unspecified (principal); I48.91 Unspecified atrial fibrillation
CPT/HCPCS: 99213

== ENCOUNTER 2023-09-16 14:52 | Outpatient (REF) | payer OTHER, SELFPAY ==
[2023-09-16 16:02] LABS: MANUAL DIFF FLAG NO
[2023-09-16 16:14] LABS: Basophils Absolute Auto 0.1 X10*3/uL (0.0-0.2); Basophils Percent Auto 1.2 % (0-2); Eosinophils Absolute Auto 0.2 X10*3/uL (0.0-0.4); Eosinophils Percent Auto 2.8 % (0-4); Hematocrit 42.1 % (42.0-52.0); Imm Gran Abs Auto 0.02 X10*3/uL (0.00-0.03); Imm Gran Pct Auto 0.3 % (0.0-0.4); Lymphocytes Absolute Auto 1.2 X10*3/uL (1.2-4.9); Lymphocytes Percent Auto 19.3 % (20-40); Mean Corpuscular HGB Conc 33.3 g/dl (31.0-36.0); Mean Corpuscular Hemoglobin 30.1 pg (27.0-33.0); Mean Corpuscular Volume 90.5 fL (80.0-98.0); Mean Platelet Volume 10.8 fL (9.4-12.4); Monocytes Absolute Auto 0.6 X10*3/uL (0.1-1.2); Monocytes Percent Auto 9.2 % (2-11); Neutrophils Absolute Auto 4.3 x10*3/uL (2.0-8.3); Neutrophils Percent Auto 67.2 % (45-73); Platelet Count 232 X10*3/uL (160-400); Red Blood Count 4.65 X10*6/uL (4.60-5.80); White Blood Count 6.4 X10*3/uL (4.8-10.8)
[2023-09-16 16:33] LABS: B Type Natriuretic Peptide 137 pg/mL (<100)
[2023-09-16 16:46] LABS: Alanine Aminotransferase 28 U/L (0-40); Albumin Level 4.2 g/dL (3.5-5.0); Alkaline Phosphatase 133 U/L (39-117); Anion Gap 10 (12-20); Aspartate Amino Transferase 19 U/L (5-37); Bilirubin Total 0.4 mg/dL (0.0-1.0); Blood Urea Nitrogen 18 mg/dL (9-16); Calcium 9.3 mg/dL (8.4-10.2); Carbon Dioxide 28 mmol/L (22-29); Chloride 109 mmol/L (96-108); Cholesterol 124 mg/dL (<200); Estimated Glomerular Filt Rate > 60; Glucose Fasting 96 mg/dL (60-99); HDL Cholesterol 32 mg/dL (>40); LDL Cholesterol Calculated 75 mg/dL (<100); Sodium 143 mmol/L (135-145); Total Protein 6.8 g/dL (6.5-8.0); Triglycerides 85 mg/dL (<150)
[2023-09-16 17:01] LABS: TSH reflex Free T4 1.55 uIU/mL (0.32-4.0)
[2023-09-16 18:27] LABS: Appearance Urine Clear; Color Urine Yellow; Glucose Urine UA Negative (Negative); Leukocyte Esterase Urine Negative (Negative); Nitrite Urine Negative (Negative); Specific Gravity - Urine 1.025 (1.005-1.025); Urine Blood Negative (Negative); Urine Ketones Negative (Negative); Urine Protein Negative (Neg-Trace)
== END 2023-09-16 14:53 | disposition home or self-care (01) ==
LOC: HO.LAB 14:52
PROVIDERS: PCP Nurse Practitioner Family; Visit Provider Internal Medicine Cardiovascular Disease
DX: I48.19 Other persistent atrial fibrillation (principal); J44.9 Chronic obstructive pulmonary disease, unspecified
CPT/HCPCS: 36415; 80053; 80061; 81003; 83880; 84443; 85025; 93005; 99212

== ENCOUNTER 2023-09-16 14:52 | Outpatient (AMB) | payer OTHER, SELFPAY ==
--- NOTE | 2023-09-16 15:02 | MHC.OFFVIS ---
Intake Vital Signs 09/16/23 15:05 Height 5 ft 4 in Weight 183 lb BMI 31.4 BP 126/72 Blood Pressure Location Lt brachial Position Sitting Pulse 86 Intake Visit Reasons[place] [facility] [place] to [place] Intake Note: [place] [facility] [place] feeling ok can't lay flat Checker Dump Grounds Required: No Talent Analyst: Talent Analyst Present Accompanied by: Spouse Allergies No Known Allergies [No Known Allergies*] Allergy (Verified 09/15/23 16:46) Medication List - Last Reconciled 09/16/23 by Arben Reyes MD apixaban (Eliquis) 5 mg PO BID 30 days atorvastatin 20 mg PO BEDTIME diltiazem HCl 240 mg See Protocol PO DAILY 30 days omeprazole 20 mg PO DAILY HPI HPI Comments History of Present Illness Details Management comes for follow-up, accompanied by his . Patient had recent admission with new onset atrial fibrillation with mild heart failure. Received Lasix. Currently not on Lasix therapy and was discharged home on rate control with Cardizem as well as Eliquis. He is taking both medications regularly although does not like to take medication. Complains of increased shortness of breath especially at nighttime when he lays down. This prevents him from sleeping all night and he has to sit up. Denies any clear leg edema. Denies any worsening exertional shortness of breath which is surprising. Denies any irregular heartbeat or palpitations. No bleeding issues or neurologic events. [facility] Medical History Persistent atrial fibrillation Atrial fibrillation with RVR Pulmonic stenosis BPH (benign prostatic hyperplasia) Smoker History of ETOH abuse Hx of gastritis Migraine Surgical History Status post incision and drainage Hx of colonoscopy History of esophagogastroduodenoscopy (EGD) Family History Brother Mental health disorder Social History Household Members: Spouse Housing: Apartment Do you presently have visiting nurse or other home services: No Patient Tobacco Use Status: Former Tobacco user Quit Date: March 2023 Tobacco use type: Cigarette Cigarettes Per Day: 7 e-Cigarette/Vaping Use: Never Used Second Hand Smoke Exposure: Yes Advance Directives Date on File: 09/03/23 service: No Current occupational status: retired Cognitive needs: No Hearing needs: No Vision needs: No Review of Systems Const Denies chills, Denies fatigue, Denies fever(s), Denies frequent falls, Denies weakness, Denies weight gain and Denies weight loss ENT Denies dizziness Card Denies chest pain, Denies leg edema, Denies lightheadedness, Denies palpitations, Denies dyspnea, Denies dyspnea on exertion, Denies orthopnea and Denies other (loss of consciousness) Resp Denies cough, Denies dyspnea and Denies dyspnea on exertion GI Denies hematochezia and Denies change in stool character Musc Denies abnormal gait, Denies muscle weakness, Denies numbness, Denies radiating pain into limb and Denies tingling Neuro Denies abnormal gait, Denies dizziness, Denies frequent falls, Denies numbness, Denies tingling and Denies weakness Endo Denies fatigue and Denies palpitations Physical Exam Vital Signs: Last Vital Signs Pulse 86 09/16/23 15:05 BP 126/72 09/16/23 15:05 BMI result Body Mass Index 31.4 Last Vital Signs Temp 98.5 F 09/04/23 07:20 Pulse 85 09/04/23 07:20 Resp 13 09/04/23 07:20 BP 137/90 H 09/04/23 07:20 Pulse Ox 94 09/04/23 07:20 O2 Del Method Room Air 09/04/23 07:20 BMI result Body Mass Index 31.6 Const General: comfortable and no acute distress Orientation/consciousness: patient oriented x3 HEENT Other: Unremarkable Head: Yes normal to inspection Neck Neck: Yes JVD Chest Chest palpation & inspection: normal inspection of the chest Resp Auscultation: clear to auscultation bilaterally Cardio Palpation: normal PMI Heart sounds: S1 normal heart sound present, S2 normal heart sound present, no gallops, no murmurs and no rubs GI Palpation (GI): Soft to palpation Back/Spine/Pelvis Other: unremarkable Skin General skin exam: no rashes or lesions noted Neuro General: patient oriented x3 Extrem General: Yes normal to inspection Psych Mental Status: mental status grossly normal Office Procedures EKG Details: EKG shows atrial fibrillation at 86 beats per minute [id number], Complete Assessment & Plan Assessment & Plan (1) Persistent atrial fibrillation: Code(s): I48.19 - Other persistent atrial fibrillation Plan: Persistent atrial fibrillation with symptoms suggestive of orthopnea. He denies any worsening exertional shortness of breath which is surprising. Has suggestion of elevated central venous pressures. Will check BNP. Elevated will start Lasix 20 mg daily. Given recent onset atrial fibrillation as well as symptoms and normal left atrial chamber size would suggest him to undergo synchronized cardioversion to achieve rhythm control approach and follow symptomatically and clinically. I think he will feel better with maintenance of normal sinus rhythm. This was discussed with him. We discuss the need for cardioversion including risk, benefits, alternatives. He understands and agrees. Will schedule for synchronized cardioversion near future. Continue Cardizem and Eliquis uninterrupted. This was discussed with him. Importance of medical therapy was discussed. Follow up in the clinic in 4 weeks time, sooner p.r.n.. Thank you for allowing me to partake in his care Orders: Orders B Type Natriuretic Peptide Today I48.19 - Other persistent atrial fibrillation Cardioversion 2 Weeks I48.19 - Other persistent atrial fibrillation Coding Level of Care Code Est Pt Level 4 (07120) Diagnoses Persistent atrial fibrillation I48.19 CPT Codes EKG - CPT: 88935-[id number], Complete ([id number])
[2023-09-16 15:05] VITALS: BP 126/72; PULSE 86; BMI 31.4
== END 2023-09-16 15:46 | disposition home or self-care (01) ==
PROVIDERS: PCP Nurse Practitioner Family; Visit Provider Internal Medicine Cardiovascular Disease
DX: I48.19 Other persistent atrial fibrillation (principal)
CPT/HCPCS: 93010; 99214

== ENCOUNTER 2023-09-19 12:21 | Day surgery (SDC) | payer OTHER, SELFPAY ==
--- NOTE | 2023-09-17 12:29 | HO.ANESPROP2 ---
Documented by User: Shamika Butterfield NP 09/17/23 12:32 HPI - Anesthesia Eval Consult details Narrative: 78yo M for Cardioversion Eliquis for afib PMFSH Active Problems Active Problems: All Active Problems Elevated alkaline phosphatase level (Acute) Persistent atrial fibrillation (Acute) COPD (chronic obstructive pulmonary disease) (Acute) Pulmonary nodules (Acute) Dyslipidemia (Acute) Tarsal tunnel syndrome (Acute) Plantar fasciitis of right foot (Acute) Metatarsal bone fracture (Acute) Pain of right heel (Acute) Systolic murmur (Acute) Screening PSA (prostate specific antigen) (Acute) Foot pain, right (Acute) Olecranon bursitis of right elbow (Acute) GERD (gastroesophageal reflux disease) (Acute) Hx of gastritis (Acute) Smoker (Acute) Past Medical History Medical History Persistent atrial fibrillation Atrial fibrillation with RVR Pulmonic stenosis BPH (benign prostatic hyperplasia) Smoker History of ETOH abuse Hx of gastritis Migraine Family History Family History Brother Mental health disorder Family history of problems with anesthesia: No Surgical History Surgical History Status post incision and drainage Hx of colonoscopy History of esophagogastroduodenoscopy (EGD) History of Problems with Anesthesia: No Social History Social History Household Members: Spouse Housing: Apartment Do you presently have visiting nurse or other home services: No Patient Tobacco Use Status: Former Tobacco user Quit Date: March 2023 Tobacco use type: Cigarette Cigarettes Per Day: 7 e-Cigarette/Vaping Use: Never Used Second Hand Smoke Exposure: Yes Advance Directives Date on File: 09/03/23 service: No Current occupational status: retired Cognitive needs: No Hearing needs: No Vision needs: No Meds Allergies Allergy/AdvReac Type Severity Reaction Status Date / Time No Known Allergies Allergy Verified 09/15/23 16:46 [No Known Allergies*] Home Medications Medication Instructions Recorded Confirmed Last Taken Type omeprazole 20 mg capsule,delayed 20 mg PO DAILY 04/16/22 09/16/23 Unknown History release Exam Pertinent Lab Results Pertinent Lab Results: Laboratory Tests 09/16/23 16:00 WBC 6.4 Hgb 14.0 Hct 42.1 Plt Count 232 D Sodium 143 Potassium 4.0 Chloride 109 H Carbon Dioxide 28 BUN 18 H Creatinine 0.93 Narrative Narrative: EKG 09/2023 atrial fibrillation at 86 beats per minute ECHO 01/2023 Conclusions: - The left ventricular systolic function is normal. The calculated ejection fraction is 64% by biplane method. - There is mild calcification of the aortic valve. - Possible mild pulmonic stenosis. Assessment and Plan Assessment Anesthesia Assessment: Chart Reviewed Final Anesthetic Review Family History of Problems with Anesthesia: No History of Problems with Anesthesia: No Documented by User: Josee Cobb MD 09/19/23 11:30 PMFSH Past Medical History Medical History Persistent atrial fibrillation Atrial fibrillation with RVR Pulmonic stenosis BPH (benign prostatic hyperplasia) Smoker History of ETOH abuse Hx of gastritis Migraine Family History Family History Brother Mental health disorder Surgical History Surgical History Status post incision and drainage Hx of colonoscopy History of esophagogastroduodenoscopy (EGD) Social History Social History Household Members: Spouse Housing: Apartment Do you presently have visiting nurse or other home services: No Patient Tobacco Use Status: Former Tobacco user Quit Date: March 2023 Tobacco use type: Cigarette Cigarettes Per Day: 7 e-Cigarette/Vaping Use: Never Used Second Hand Smoke Exposure: Yes Advance Directives Date on File: 09/03/23 service: No Current occupational status: retired Cognitive needs: No Hearing needs: No Vision needs: No Meds Allergies Allergy/AdvReac Type Severity Reaction Status Date / Time No Known Allergies Allergy Verified 09/15/23 16:46 [No Known Allergies*] Home Medications Medication Instructions Recorded Confirmed Last Taken Type omeprazole 20 mg capsule,delayed 20 mg PO DAILY 04/16/22 09/16/23 Unknown History release Exam Airway Mallampati Class: III TM Dist: >3cm Neck ROM: Limited Heart: afib Lungs: cta Assessment and Plan Assessment Anesthesia Assessment: Anesthesia Plan Discussed Final Anesthetic Review NPO: Yes ASA Class: III and Emergency Final Preanesthetic Review: No Changes in Pt Med Stat, Meds/Allgs Chart Reviewed, Consent Obtained/Reviewed and Anes Risks/Benef Reviewed Patient Risk: Intermediate Procedure Risk: Low Anesthetic Plan Anesthetic Plan: MAC: Disposition: Standard PACU
[2023-09-19 12:41] VITALS: BMI 31.3
[2023-09-19 12:49] VITALS: BP 148/100; PULSE 118; RESP 16; TEMP 36.5; O2SAT 98
[2023-09-19] MEDS: Lactated Ringers 1,000 ML 50 ML IVCONT (13:37)
--- NOTE | 2023-09-19 14:06 | ECG_ITS ---
Test Reason : S/P CARDIOVERSION Blood Pressure : / mmHG Vent. Rate : 094 BPM Atrial Rate : 094 BPM P-R Int : 140 ms QRS Dur : 084 ms QT Int : 356 ms P-R-T Axes : 058 031 065 degrees QTc Int : 445 ms Sinus rhythm with Premature atrial complexes Otherwise normal ECG When compared with ECG of 02-SEP-2023 15:01, Sinus rhythm has replaced Atrial fibrillation Referred By: Arben Reyes Electronically Signed By:ARBEN REYES MD
--- NOTE | 2023-09-19 14:06 | MHC.SHP ---
Pre-Procedural Eval Section A Date of Service: 09/19/23 The patient is an INPATIENT: No Changes since office visit: Yes Patient answered all questions; No Cold of Flu in the past 2 weeks, No New Medical Problems and No Changes in Medication The History & Physical has been completed within 30 days and I have reviewed it.: Yes Section B Chief Complaint: Other persistent atrial fibrillation Allergies: Allergies Allergy/AdvReac Type Severity Reaction Status Date / Time No Known Allergies Allergy Verified 09/19/23 12:41 [No Known Allergies*] Plan I have reviewed the history and physical and performed a pertinent physical examination on my patient. No changes have occurred unless specified. Time Spent With Patient Time: Total time managing care of this patient today ____ minutes.
[2023-09-19 14:20] VITALS: BP 133/83; PULSE 89; RESP 16; TEMP 36.6; O2SAT 95
--- NOTE | 2023-09-19 14:21 | HO.CARDIVERS ---
Cardioversion Procedure Note Cardioversion Date of Procedure: Today Ordering Provider: Myself Performing Provider: Myself Indication for Procedure: Persistent symptomatic atrial fibrillation Pre-Op Diagnosis: Same Post-Op Diagnosis: Normal sinus rhythm Performed with Transesophageal Echo: No Consent: Verbal and Written consent was obtained from the patient before starting and after confirming oral anticoagulation use. The patient was made aware of the risk of synchronized cardioversion including benefits and alternatives Procedure: After consent obtained, cardioversion pads were attached anteroposterior configuration and the patient was sedated by the anesthesia team. Once adequate sedation achieved, 200 joules of biphasic synchronized energy in anteroposterior configuration Complications: None Impression: Successful conversion to sinus rhythm Recommendations: 1. 12 lead EKG 2. Continue full oral anticoagulation and Cardizem 3. Follow-up after Holter monitor
[2023-09-19 14:35] VITALS: BP 128/89; PULSE 89; RESP 16; TEMP 36.6; O2SAT 97
== END 2023-09-19 15:05 | disposition home or self-care (01) ==
PROVIDERS: PCP Nurse Practitioner Family; Visit Provider Internal Medicine Cardiovascular Disease
PROC: 5A2204Z Restoration of Cardiac Rhythm, Single (ICD-10-PCS; principal; 2023-09-19 14:00)
DX: I48.19 Other persistent atrial fibrillation (principal); Z79.01 Long term (current) use of anticoagulants; Z79.899 Other long term (current) drug therapy; Z87.891 Personal history of nicotine dependence
CPT/HCPCS: 92960; 93005; J2371; J2704

== ENCOUNTER → 2023-09-19 12:21 | Outpatient (BNV) | payer OTHER, SELFPAY | PROVIDERS: PCP Nurse Practitioner Family; Visit Provider Internal Medicine Cardiovascular Disease | DX: I48.19 Other persistent atrial fibrillation (principal) | CPT/HCPCS: 92960 ==

== ENCOUNTER 2023-09-29 09:50 | Outpatient (REF) | payer OTHER, SELFPAY ==
[2023-09-29 14:46] LABS: Gamma Glutamyl Transpeptidase 32 U/L (11-51)
[2023-10-02 05:55] LABS: Alk.Phos Iso. Macrohepatic 0 % (<=0); Alk.Phos Isoenzymes Bone 30 % (28-66); Alk.Phos Isoenzymes Intest 0 % (1-24); Alk.Phos Isoenzymes Liver 70 % (25-69); Alk.Phos Isoenzymes Placental 0 % (<=0); Alk.Phos Isoenzymes Total 131 U/L (35-144)
== END 2023-09-29 09:51 | disposition home or self-care (01) ==
LOC: HO.HMGCLDS 09:50
PROVIDERS: Absent Provider Internal Medicine Cardiovascular Disease; PCP Nurse Practitioner Family; Visit Provider Nurse Practitioner Family
DX: R74.8 Abnormal levels of other serum enzymes (principal)
CPT/HCPCS: 36415; 82977; 84080

== ENCOUNTER → 2023-10-03 12:32 | Outpatient (REF) | payer OTHER, SELFPAY ==
--- NOTE | 2023-10-03 12:35 | HM_ITS ---
* Total monitoring time 3 days. * Underlying rhythm is atrial fibrillation. Average ventricular rate 100/Min. Range 59 to 158/Min. * About 30% the time, rate > 100/Min. * Occasional premature ventricular contractions. Rare couplets, bigeminy, trigeminy. * No significant pauses or AV blocks. * No patient markers or diary events. MTDD
== END ==
LOC: HO.CARD 12:32
PROVIDERS: PCP Nurse Practitioner Family; Visit Provider Internal Medicine Cardiovascular Disease
DX: I48.19 Other persistent atrial fibrillation (principal)
CPT/HCPCS: 93242

== ENCOUNTER → 2023-10-03 12:35 | Outpatient (BNV) | payer OTHER, SELFPAY | PROVIDERS: PCP Nurse Practitioner Family; Visit Provider Internal Medicine | DX: I48.19 Other persistent atrial fibrillation (principal) | CPT/HCPCS: 93244 ==

== ENCOUNTER 2023-10-20 15:31 | Outpatient (AMB) | payer OTHER, SELFPAY ==
[2023-10-20 15:33] VITALS: BP 130/74; PULSE 56; BMI 31.0
--- NOTE | 2023-10-20 15:33 | MHC.OFFVIS ---
Intake Vital Signs 10/20/23 15:33 Height 5 ft 4 in Weight 180 lb 12.465 oz BMI 31.0 BP 130/74 Blood Pressure Location Lt brachial Position Sitting Pulse 56 Intake Visit Reasons: 1 mth s/p cvr/ holter per ns Intake Note: 1 month follow-up after CVR and holter c/o sob Supervisor [place] Required: No Allergies No Known Allergies [No Known Allergies*] Allergy (Verified 09/19/23 12:41) Medication List - Last Reconciled 10/20/23 by Arben Reyes MD amiodarone 400 mg PO BID 14 days apixaban (Eliquis) 5 mg PO BID 30 days atorvastatin 20 mg PO BEDTIME diltiazem HCl 240 mg See Protocol PO DAILY 30 days furosemide (Lasix) 20 mg PO QAM omeprazole 20 mg PO DAILY HPI HPI Comments History of Present Illness Details Randall comes for follow-up after cardioversion. Follow-up Holter monitor showed persistent atrial fibrillation. However at that time was confirm there was not taking his amiodarone. Since then he was restarted on amiodarone 400 mg b.i.d. comes for follow-up. Today noted to be in sinus rhythm. He is very vague about any improvement in symptoms although says he is less short of breath. He denies any heart failure symptoms. No significant orthopnea at this point time on Lasix therapy. He complains of fatigue and tiredness. No chest pain. No bleeding issues or neurologic events. Takes his apixaban religiously. [facility] Medical History Paroxysmal atrial fibrillation Persistent atrial fibrillation Atrial fibrillation with RVR Pulmonic stenosis BPH (benign prostatic hyperplasia) Smoker History of ETOH abuse Hx of gastritis Migraine Surgical History Status post incision and drainage Hx of colonoscopy History of esophagogastroduodenoscopy (EGD) Family History Brother Mental health disorder Social History Household Members: Spouse Housing: Apartment Do you presently have visiting nurse or other home services: No Patient Tobacco Use Status: Former Tobacco user Quit Date: 2022 Tobacco use type: Cigarette Cigarettes Per Day: 7 Years Smoked: 50 e-Cigarette/Vaping Use: Never Used Second Hand Smoke Exposure: Yes Advance Directives Date on File: 09/03/23 service: No Current occupational status: retired Cognitive needs: No Hearing needs: No Vision needs: No Review of Systems Const Denies chills, Denies fatigue, Denies fever(s), Denies frequent falls, Denies weakness, Denies weight gain and Denies weight loss ENT Denies dizziness Card Denies chest pain, Denies leg edema, Denies lightheadedness, Denies palpitations, Denies dyspnea, Denies dyspnea on exertion, Denies orthopnea and Denies other (loss of consciousness) Resp Denies cough, Denies dyspnea and Denies dyspnea on exertion GI Denies hematochezia and Denies change in stool character Musc Denies abnormal gait, Denies muscle weakness, Denies numbness, Denies radiating pain into limb and Denies tingling Neuro Denies abnormal gait, Denies dizziness, Denies frequent falls, Denies numbness, Denies tingling and Denies weakness Endo Denies fatigue and Denies palpitations Physical Exam Vital Signs: Last Vital Signs Pulse 56 10/20/23 15:33 BP 130/74 10/20/23 15:33 BMI result Body Mass Index 31.0 Last Vital Signs Temp 98.5 F 09/04/23 07:20 Pulse 85 09/04/23 07:20 Resp 13 09/04/23 07:20 BP 137/90 H 09/04/23 07:20 Pulse Ox 94 09/04/23 07:20 O2 Del Method Room Air 09/04/23 07:20 BMI result Body Mass Index 31.6 Const General: comfortable and no acute distress Orientation/consciousness: patient oriented x3 HEENT Other: Unremarkable Head: Yes normal to inspection Neck Neck: Yes JVD Chest Chest palpation & inspection: normal inspection of the chest Resp Auscultation: clear to auscultation bilaterally Cardio Palpation: normal PMI Rate: regular rate Rhythm: regular rhythm Heart sounds: S1 normal heart sound present, S2 normal heart sound present, no gallops, no murmurs and no rubs GI Palpation (GI): Soft to palpation Back/Spine/Pelvis Other: unremarkable Skin General skin exam: no rashes or lesions noted Neuro General: patient oriented x3 Extrem General: Yes normal to inspection Psych Mental Status: mental status grossly normal Office Procedures EKG Details: EKG shows sinus bradycardia at 56 beats per minute with [place] [id number], Complete Assessment & Plan Assessment & Plan (1) Paroxysmal atrial fibrillation: Code(s): I48.0 - Paroxysmal atrial fibrillation Plan: Patient comes today and is noted to be in sinus rhythm. He is feeling better in terms of his shortness of breath and also symptoms of orthopnea. Then overt signs of heart failure. Importance of compliance with medication was discussed. He has been adequately loaded with amiodarone at this point time will switch him to 200 mg daily for maintenance dose. Continue full oral anticoagulation with Eliquis. Continue Cardizem therapy. Avoidance of stimulants was discussed. Continue current Lasix therapy. Follow-up BNP in 2 months time. Follow-up Holter monitor in 2 months time. If maintains rhythm and continues to show improvement in symptoms and functional capacity will pursue rhythm control approach aggressively and at 3 months time probably reduce amiodarone 200 mg daily. This was discussed with him in details. Continue risk factor modification with aggressive control of blood pressure. This is well optimized. Follow up in the clinic in 3 months time, sooner p.r.n.. Thank you for allowing me to partake in his care Orders: Orders ECG holter monitor 48 hour 2 Months I48.0 - Paroxysmal atrial fibrillation B Type Natriuretic Peptide 2 Months I48.0 - Paroxysmal atrial fibrillation Medications: New amiodarone 200 mg PO DAILY 30 tabs 5RF Refilled apixaban (Eliquis) 5 mg PO BID 30 days 60 tabs 5RF Discontinued amiodarone Keep appt on Friday10/20/23 at 3:[address] Reyes Discontinued Reason: Doctor's Order 400 mg PO BID 14 days 28 tabs 0RF Coding Level of Care Code Est Pt Level 4 (32675) Diagnoses Paroxysmal atrial fibrillation I48.0 CPT Codes EKG - CPT: 53425-[id number], Complete ([id number])
== END 2023-10-20 15:53 | disposition home or self-care (01) ==
PROVIDERS: PCP Nurse Practitioner Family; Visit Provider Internal Medicine Cardiovascular Disease
DX: I48.0 Paroxysmal atrial fibrillation (principal)
CPT/HCPCS: 93010; 99214

== ENCOUNTER → 2023-10-20 15:31 | Outpatient (BNVA) | payer OTHER, SELFPAY | PROVIDERS: PCP Nurse Practitioner Family; Visit Provider Internal Medicine Cardiovascular Disease | DX: I48.0 Paroxysmal atrial fibrillation (principal) | CPT/HCPCS: 93005; 99212 ==

== ENCOUNTER → 2023-12-01 10:14 | Outpatient (REF) | payer OTHER, SELFPAY ==
--- NOTE | 2023-12-01 10:16 | HM_ITS ---
Conclusion: 1. Patient was monitored for total period of 2 days 2. Baseline was normal sinus rhythm with average heart of 70 beats per minute 3. No significant pauses noted 4. Frequent PACs noted with total burden of 1.7% with no episodes of atrial fibrillation 5. No patient reported events MTDD
== END ==
LOC: HO.CARD 10:14
PROVIDERS: PCP Nurse Practitioner Family; Visit Provider Internal Medicine Cardiovascular Disease
DX: I48.0 Paroxysmal atrial fibrillation (principal)
CPT/HCPCS: 93225

== ENCOUNTER → 2023-12-01 10:16 | Outpatient (BNV) | payer OTHER, SELFPAY | PROVIDERS: PCP Nurse Practitioner Family; Visit Provider Internal Medicine Cardiovascular Disease | DX: I48.0 Paroxysmal atrial fibrillation (principal) | CPT/HCPCS: 93227 ==

== ENCOUNTER 2024-01-05 14:51 | Outpatient (AMB) | payer OTHER, SELFPAY ==
--- NOTE | 2024-01-05 15:00 | A.OFFPC_ITS ---
Vital Signs 01/05/24 15:02 Height 5 ft 4 in Weight 180 lb BMI 30.9 BP 120/72 Blood Pressure Location Lt brachial Position Sitting Pulse 63 Pulse Source Pulse Oximeter Pulse Oximetry (%) 97 Oxygen Delivery Method Room Air Intake Visit Reasons: 6 month fu Intake Note: Patient here for Afib follow up. Allergies No Known Allergies [No Known Allergies*] Allergy (Verified 01/05/24 15:02) Tobacco use date assessed: 09/15/23 Dental Screening Dental Screen Date: 09/15/23 HPI 6 month fu HPI Details Dyslipidemia: On atorvastatin 20mg. Will order labs. Denies chest pain, shortness of breath, headache, dizziness, and blurred vision. Due for PSA, will order. Denies dribbling with urination, weak stream, and frequent nocturia. PFS Medical History Paroxysmal atrial fibrillation Persistent atrial fibrillation Atrial fibrillation with RVR Pulmonic stenosis BPH (benign prostatic hyperplasia) Smoker History of ETOH abuse Hx of gastritis Migraine Surgical History Status post incision and drainage Hx of colonoscopy History of esophagogastroduodenoscopy (EGD) Family History Brother Mental health disorder Social History Household Members: Spouse Housing: Apartment Do you presently have visiting nurse or other home services: No Patient Tobacco Use Status: Former Tobacco user Quit Date: 2022 Tobacco use type: Cigarette Cigarettes Per Day: 7 Years Smoked: 50 e-Cigarette/Vaping Use: Never Used Second Hand Smoke Exposure: Yes Advance Directives Date on File: 09/03/23 service: No Current occupational status: retired Cognitive needs: No Hearing needs: No Vision needs: No Questionnaire Thrive Questionnaire Date Thrive assessed: 09/03/23 JASBIR-7 AMB Questionnaire JASBIR-7 Date JASBIR - 7 assessed: 04/16/22 Source: Developed by Drs. Andrew Flowers, Lauren Humphries, Vimal Zuniga and colleagues, with an educational garrick from [email or web address]. Review of Systems Const Reports as per HPI Physical exam (Primary Care) Vital Signs: Last Vital Signs Pulse 63 01/05/24 15:02 BP 120/72 01/05/24 15:02 Pulse Ox 97 01/05/24 15:02 Oxygen Delivery Method Room Air 01/05/24 15:02 BMI result Body Mass Index 30.9 Tobacco/Smoking Status: Tobacco use Status Tobacco use date assessed 09/15/23 01/05/24 15:01 Patient Tobacco Use Status Former Tobacco user 01/05/24 15:01 Tobacco use type Cigarette 01/05/24 15:01 e-Cigarette/Vaping Use Never Used 01/05/24 15:01 Thrive Assessment: Date of Thrive Assessment Date Thrive assessed 09/03/23 01/05/24 15:01 Const General: cooperative Orientation/consciousness: patient oriented x3 Resp Other: lungs diminished though moving air Effort & Inspection: normal respiratory effort Cardio Rate: regular rate Rhythm: regular rhythm Heart sounds: S1 normal heart sound present and S2 normal heart sound present Neuro General: patient oriented x3 Psych Appearance: grossly normal Mental Status: mental status grossly normal Speech and movement: Normal speech and movement present Affect: normal affect Attitude: cooperative Thought process: Normal thought process present Thought content: Normal thought content present Insight: Good insight present (Psych) Judgement: Good judgement present (Psych) Assessment and Plan Assessment & Plan (1) Dyslipidemia: Code(s): E78.5 - Hyperlipidemia, unspecified Plan: Labs ordered (2) Screening PSA (prostate specific antigen): Code(s): Z12.5 - Encounter for screening for malignant neoplasm of prostate Plan: PSA ordered Plan The patient agreed to the use of a medical researcher for this encounter. Scribed fo JUSTINE Jolley-ANNETTE by Lou Moreland medical researcher, on 01/05/2024 at 15:15 EST. Orders: Orders Complete Blood Count Auto Diff Today E78.5 - Hyperlipidemia, unspecified TSH reflex Free T4 Today E78.5 - Hyperlipidemia, unspecified Comprehensive [place]. Panel Fast Today E78.5 - Hyperlipidemia, unspecified UA CC w/rflx Micro + Cult Today E78.5 - Hyperlipidemia, unspecified Lipid Panel Today E78.5 - Hyperlipidemia, unspecified Prostate Specific Antigen Scr Today Z12.5 - Encounter for screening for malignant neoplasm of prostate Coding Level of Care Code Est Pt Level 3 (51668) Diagnoses Dyslipidemia E78.5 Screening PSA (prostate specific antigen) Z12.5
[2024-01-05 15:02] VITALS: BP 120/72; PULSE 63; O2SAT 97; BMI 30.9
== END 2024-01-05 16:17 | disposition home or self-care (01) ==
PROVIDERS: PCP Nurse Practitioner Family; Visit Provider Nurse Practitioner Family
DX: E78.5 Hyperlipidemia, unspecified (principal); Z12.5 Encounter for screening for malignant neoplasm of prostate
CPT/HCPCS: 99213

== ENCOUNTER 2024-01-27 13:57 | Outpatient (AMB) | payer OTHER, SELFPAY ==
--- NOTE | 2024-01-27 14:02 | A.OFFVIS_ITS ---
Vital Signs 01/27/24 14:03 Height 5 ft 4 in Weight 178 lb 9.191 oz BMI 30.6 BP 120/80 Blood Pressure Location Lt brachial Position Sitting Pulse 54 Intake Visit Reasons: 3 mth f/up holter Intake Note: 3 month follow-up with ekg after holter feeling good patient stopped taking the eliquis and statin (because they finish taking them) Bag Filler Required: No Allergies No Known Allergies [No Known Allergies*] Allergy (Verified 01/05/24 15:02) Medication List - Last Reconciled 01/27/24 by Arben Reyes MD amiodarone 200 mg PO DAILY diltiazem HCl CD 240 mg See Protocol PO DAILY 30 days furosemide (Lasix) 20 mg PO QAM omeprazole 20 mg PO DAILY HPI Comments Details: Randall comes for follow-up. Recent Holter monitor shows normal sinus rhythm with frequent PACs at 1.7%. Overall no episodes of atrial fibrillation. He is very vague about whether he is feeling better but says he has no restriction to his activity level. Denies any worsening exertional shortness of breath or fatigue. Denies any prolonged palpitation irregular heartbeat. He has currently not taking Eliquis, he told that he ran out of it. Did not call or office. He also currently not taking statin therapy. He said he gets short of breath when he bends over. However he denies any orthopnea, PND, leg edema. [facility] Medical History Paroxysmal atrial fibrillation Persistent atrial fibrillation Atrial fibrillation with RVR Pulmonic stenosis BPH (benign prostatic hyperplasia) Smoker History of ETOH abuse Hx of gastritis Migraine Surgical History Status post incision and drainage Hx of colonoscopy History of esophagogastroduodenoscopy (EGD) Family History Brother Mental health disorder Social History Household Members: Spouse Housing: Apartment Do you presently have visiting nurse or other home services: No Patient Tobacco Use Status: Former Tobacco user Quit Date: 2022 Tobacco use type: Cigarette Cigarettes Per Day: 7 Years Smoked: 50 e-Cigarette/Vaping Use: Never Used Second Hand Smoke Exposure: Yes Advance Directives Date on File: 09/03/23 service: No Current occupational status: retired Cognitive needs: No Hearing needs: No Vision needs: No Review of Systems Const Denies chills, Denies fatigue, Denies fever(s), Denies frequent falls, Denies weakness, Denies weight gain and Denies weight loss ENT Denies dizziness Card Denies chest pain, Denies leg edema, Denies lightheadedness, Denies palpitations, Denies dyspnea, Denies dyspnea on exertion, Denies orthopnea and Denies other (loss of consciousness) Resp Denies cough, Denies dyspnea and Denies dyspnea on exertion GI Denies hematochezia and Denies change in stool character Musc Denies abnormal gait, Denies muscle weakness, Denies numbness, Denies radiating pain into limb and Denies tingling Neuro Denies abnormal gait, Denies dizziness, Denies frequent falls, Denies numbness, Denies tingling and Denies weakness Endo Denies fatigue and Denies palpitations Physical Exam Vital Signs: Last Vital Signs Pulse 54 01/27/24 14:03 BP 120/80 01/27/24 14:03 BMI result Body Mass Index 30.6 Last Vital Signs Temp 98.5 F 09/04/23 07:20 Pulse 85 09/04/23 07:20 Resp 13 09/04/23 07:20 BP 137/90 H 09/04/23 07:20 Pulse Ox 94 09/04/23 07:20 O2 Del Method Room Air 09/04/23 07:20 BMI result Body Mass Index 31.6 Const General: comfortable and no acute distress Orientation/consciousness: patient oriented x3 HEENT Other: Unremarkable Head: Yes normal to inspection Neck Neck: Yes JVD Chest Chest palpation & inspection: normal inspection of the chest Resp Auscultation: clear to auscultation bilaterally Cardio Palpation: normal PMI Rate: regular rate Rhythm: regular rhythm Heart sounds: S1 normal heart sound present, S2 normal heart sound present, no gallops, no murmurs and no rubs GI Palpation (GI): Soft to palpation Back/Spine/Pelvis Other: unremarkable Skin General skin exam: no rashes or lesions noted Neuro General: patient oriented x3 Extrem General: Yes normal to inspection Psych Mental Status: mental status grossly normal Office Procedures EKG Details: EKG shows sinus bradycardia at 54 beats per minute [id number], Complete Assessment & Plan Assessment & Plan (1) Paroxysmal atrial fibrillation: Code(s): I48.0 - Paroxysmal atrial fibrillation Category: Medical Plan: Patient now in sinus rhythm and doing well with sinus rhythm although very vague about improvement in symptoms. However maintaining rhythm. Reduce amiodarone 200 mg daily. Continue Cardizem therapy. Importance of oral anticoagulation therapy with apixaban was discussed with him. Will represcribed him the same. Will check BMP and BNP today. Clinically does appear to be in heart failure. Follow up in clinic in 6 months after echocardiogram and Holter monitor. (2) Elevated brain natriuretic peptide (BNP) level: Code(s): R79.89 - Other specified abnormal findings of blood chemistry Category: Medical Plan: Elevated BNP most likely related to atrial fibrillation. Clinically euvolemic and well compensated. With no signs of heart failure. Will check BNP. If BNP is normalized will consider tapering and discontinuing furosemide therapy to reduce long-term complication of not require medication. Signs and symptoms of heart failure were discussed. Continue rhythm control approach. Continue manage COPD aggressively. Will follow up in the clinic in 6 months time, sooner p.r.n.. Thank you for allowing me to partake in his care Orders: Orders Basic Metabolic Panel Today I48.0 - Paroxysmal atrial fibrillation CA echo transthoracic complete 6 Months I48.0 - Paroxysmal atrial fibrillation ECG 3 day holter monitor 6 Months I48.0 - Paroxysmal atrial fibrillation B Type Natriuretic Peptide Today I48.0 - Paroxysmal atrial fibrillation Medications: New apixaban (Eliquis) 5 mg PO BID 60 tabs 5RF amiodarone 100 mg PO DAILY 30 tabs 5RF Discontinued amiodarone Discontinued Reason: Doctor's Order 200 mg PO DAILY 30 tabs 5RF Coding Level of Care Code Est Pt Level 4 (92091) Diagnoses Paroxysmal atrial fibrillation I48.0 Elevated brain natriuretic peptide (BNP) level R79.89 CPT Codes EKG - CPT: 00324-[id number], Complete ([id number])
[2024-01-27 14:03] VITALS: BP 120/80; PULSE 54; BMI 30.6
== END 2024-01-27 14:23 | disposition home or self-care (01) ==
PROVIDERS: PCP Nurse Practitioner Family; Visit Provider Internal Medicine Cardiovascular Disease
DX: I48.0 Paroxysmal atrial fibrillation (principal); R79.89 Other specified abnormal findings of blood chemistry
CPT/HCPCS: 93010; 99214

== ENCOUNTER 2024-01-27 13:57 | Outpatient (REF) | payer OTHER, SELFPAY ==
[2024-01-27 14:55] LABS: MANUAL DIFF FLAG NO
[2024-01-27 15:19] LABS: Basophils Absolute Auto 0.1 X10*3/uL (0.0-0.2); Basophils Percent Auto 1.1 % (0-2); Eosinophils Absolute Auto 0.2 X10*3/uL (0.0-0.4); Eosinophils Percent Auto 2.4 % (0-4); Hematocrit 43.8 % (42.0-52.0); Hemoglobin 14.7 g/dl (14.0-18.0); Imm Gran Abs Auto 0.03 X10*3/uL (0.00-0.03); Imm Gran Pct Auto 0.4 % (0.0-0.4); Lymphocytes Absolute Auto 1.5 X10*3/uL (1.2-4.9); Lymphocytes Percent Auto 20.3 % (20-40); Mean Corpuscular HGB Conc 33.6 g/dl (31.0-36.0); Mean Corpuscular Hemoglobin 29.6 pg (27.0-33.0); Mean Corpuscular Volume 88.3 fL (80.0-98.0); Mean Platelet Volume 11.4 fL (9.4-12.4); Monocytes Absolute Auto 0.7 X10*3/uL (0.1-1.2); Monocytes Percent Auto 9.1 % (2-11); Neutrophils Percent Auto 66.7 % (45-73); Platelet Count 196 X10*3/uL (160-400); Red Blood Count 4.96 X10*6/uL (4.60-5.80); Red Cell Distribution Width 15.6 % (11.0-16.0); White Blood Count 7.4 X10*3/uL (4.8-10.8)
[2024-01-27 15:30] LABS: Appearance Urine Clear; Color Urine Yellow; Glucose Urine UA Negative (Negative); Leukocyte Esterase Urine Small (1+) (Negative); Nitrite Urine Negative (Negative); UMIC TRIGGER UACC YES; Urine Blood Negative (Negative); Urine Ketones Negative (Negative); Urine Protein Negative (Neg-Trace)
[2024-01-27 15:38] LABS: Bacteria Urine None Seen (None Seen); Hyaline Casts Urine 0-2 /LPF (0-2); RBC Urine 0-2 /HPF (0-2); Squamous Epithelial Cell Urine 0-2 /HPF (0-2); UACC Culture Trigger YES; WBC Urine 0-5 /HPF (0-5)
[2024-01-27 15:49] LABS: B Type Natriuretic Peptide 70 pg/mL (<100)
[2024-01-27 15:51] LABS: Alanine Aminotransferase 21 U/L (0-40); Albumin Level 4.3 g/dL (3.5-5.0); Alkaline Phosphatase 134 U/L (39-117); Anion Gap 15 (12-20); Aspartate Amino Transferase 16 U/L (5-37); Bilirubin Total 0.6 mg/dL (0.0-1.0); Blood Urea Nitrogen 17 mg/dL (9-16); Calcium 9.5 mg/dL (8.4-10.2); Carbon Dioxide 27 mmol/L (22-29); Chloride 106 mmol/L (96-108); Cholesterol 258 mg/dL (<200); Estimated Glomerular Filt Rate 58; Glucose Fasting 90 mg/dL (60-99); Glucose Random 90 mg/dL (60-115); HDL Cholesterol 41 mg/dL (>40); LDL Cholesterol Calculated 184 mg/dL (<100); Potassium 3.9 mmol/L (3.3-5.1); Sodium 144 mmol/L (135-145); Total Protein 7.2 g/dL (6.5-8.0); Triglycerides 169 mg/dL (<150)
[2024-01-27 16:07] LABS: TSH reflex Free T4 2.06 uIU/mL (0.32-4.0)
[2024-01-27 16:11] LABS: Prostate Specific Antigen Scr 1.47 ng/mL (<0.05-4.0)
== END 2024-01-27 13:58 | disposition home or self-care (01) ==
LOC: HO.LAB 13:57
PROVIDERS: PCP Nurse Practitioner Family; Visit Provider Internal Medicine Cardiovascular Disease
DX: Z12.5 Encounter for screening for malignant neoplasm of prostate (principal); I48.0 Paroxysmal atrial fibrillation; R79.89 Other specified abnormal findings of blood chemistry; E78.5 Hyperlipidemia, unspecified; R82.90 Unspecified abnormal findings in urine
CPT/HCPCS: 36415; 80048; 80053; 80061; 81001; 83880; 84153; 84443; 85025; 87086; 93005; 99212

== ENCOUNTER 2024-02-10 07:42 | Outpatient (REF) | payer OTHER, SELFPAY ==
--- NOTE | ~2024-02-10 | US_ITS ---
EXAMINATION: US ABDOMEN LIMITED CLINICAL INFORMATION: Abnormal levels of other serum enzymes. COMPARISON: None available. TECHNIQUE: Real-time imaging of the right upper quadrant abdominal viscera. FINDINGS: PANCREAS: Normal body, the head and tail are not well seen. LIVER: The liver is normal in size. The liver contour is normal. There is diffuse increased liver parenchymal echogenicity, consistent with hepatic steatosis. No focal hepatic lesion. There is no intrahepatic biliary duct dilatation seen. GALLBLADDER: The gallbladder is physiologically distended without evidence of stones, polyps, wall thickening or pericholecystic fluid. Mild echogenic bile/sludge is noted. No sonographic Guzman's sign. COMMON BILE DUCT: Normal in caliber measuring 0.7 cm in diameter. RIGHT KIDNEY: No hydronephrosis or renal calculi. The kidney measures 10.4 cm in maximum dimension. 0.4 x 0.3 x 0.4 cm simple exophytic lower pole cyst is seen, no imaging follow-up recommended FREE FLUID: None. US/US abdomen limited IMPRESSION: 1. Hepatic steatosis. 2. Mild echogenic bile/sludge in the gallbladder.
== END 2024-02-10 07:43 | disposition home or self-care (01) ==
LOC: HO.US 07:42
PROVIDERS: PCP Nurse Practitioner Family; Visit Provider Nurse Practitioner Family
DX: R74.8 Abnormal levels of other serum enzymes (principal)
CPT/HCPCS: 76705

== ENCOUNTER → 2024-07-12 12:29 | Outpatient (REF) | payer OTHER, SELFPAY ==
--- NOTE | 2024-07-12 12:33 | CA_ITS ---
Transthoracic Echocardiogram Patient (Last, First, Middle): Randall Olivier, Gender: Male Date of : 1945 Age: 78 Procedure Date: 07/12/2024 Procedure Type: Transthoracic Echocardiogram Location: OP Height: 162.56 cm Weight: 83.46 kg BSA: 1.89 m2 Heart Rate: 57 bpm BP: 124 / 80 mmHg Drawbridge Operator: SB Referring MD: Arben Reyes MD Greeter Guest Services: Arben Reyes MD Symptoms: I48.0 - Paroxysmal atrial fibrillation Study Quality: Adequate ECG Rhythm: Bradycardia Conclusions: - 1. Hyperdynamic LV ejection fraction greater than 70% with mild LVH with impaired relaxation filling pattern 2. Trace aortic regurgitation 3. Mildly elevated right ventricular systolic pressure 4. No gross pericardial effusion Findings Left Ventricle Normal left ventricular cavity size. There is mildly increased left ventricular wall thickness. The left ventricular systolic function is hyperdynamic. The visually estimated ejection fraction is >70%. Spectral Doppler is indicative of an impaired relaxation filling pattern. Elevated left ventricular end diastolic pressure. E/E prime ratio is between 8 and 15 consistent with indeterminate filling pressures. Right Ventricle Normal right ventricular cavity size and systolic function. Atria The left atrium is normal in size. Interatrial shunt cannot be excluded. The right atrium is normal in size. Aortic Valve There is mild calcification of the aortic valve. There is mild thickening of the aortic valve. There is no aortic valve stenosis. There is trace (trivial) aortic valve regurgitation. Mitral Valve There is mild anterior and posterior mitral leaflet thickening. There is trace mitral valve regurgitation. There is no mitral valve stenosis. Pulmonic Valve The pulmonic valve was not well visualized. Tricuspid Valve Likely normal tricuspid valve structure and function. There is mild tricuspid valve regurgitation. Normal right atrial pressure. Mild pulmonary hypertension is present. Great Vessels All visible segments of the aorta are normal in size. The pulmonary artery was not well visualized. There is no dilatation of the ascending aorta measuring 2.70 cm. Venous The inferior vena cava is normal in size and collapses greater than 50% with inspiration. Pericardium/Pleural There is no evidence of pericardial effusion. Measurements 2D Linear Measurements IVSd: 1.35 0.6-0.9/0.6-1.0 cm LVIDd: 4.13 3.9-5.3/4.2-5.9 cm LVIDd Index: 2.19 2.4-3.2/2.2-3.1 cm/m2 LVIDs: 2.21 2.0-3.6 cm LVPWd: 1.15 0.7-1.1 cm LA Diam: 3.80 2.7-3.8/3.0-4.0 cm LAIDs Index: 2.01 1.5-2.3 cm/m2 LV Mass: 229.83 67-162/88-224 g LV Mass Index: 121.60 43-95/49-115 g/m2 LVOT Diam: 1.90 3.0+(-)1.3 cm 2D Systolic Function EF 4C: 73.60 >55% EF 2C: 67.50 >55% EF BiP: 69.80 >55% Mitral Valve MV Pk E: 0.80 MV PK A: 1.08 MV Decel Time: 317.00 E/A: 0.70 E'Lateral: 6.85 E'Medial: 4.79 E/E' Med: 16.60 E/E' Lat: 11.60 PHT: 93.00 MVA PHT: 2.37 Decel [place]: 2.51 Aortic Valve AoV Pk José: 1.72 AoV Mn José: 1.13 AoV VTI: 0.29 AoV Pk Grad: 12.00 Aov Mn Grad: 6.00 JULIANA Cont.VTI: 2.86 LVOT LVOT Pk José: 1.53 LVOT Mn José: 1.00 LVOT VTI: 0.29 LVOT Pk Grad: 9.00 LVOT Mn Grad: 5.00 LVOT Diam: 1.90 LVOT Area: 2.84 Diastolic Function MV Pk E: 0.80 MV Pk A: 1.08 E/A: 0.70 E'Medial: 4.79 E/E' Med: 16.60 E' Laterial: 6.85 E/E' Lat: 11.60 Right Ventricle TAPSE (mm): 30.00 TVS' José: 18.60 Tricuspid Valve TR Pk José: 3.21 TR Pk Grad: 41.00 RA Press: 3.00 RVSP: 44.00 Great Vessels Aorta Sinus of Valsalva: 3.20 2.0-3.5 cm Ao Asc: 2.70 2.1-3.4 cm Pulmonary Veins Pulm Vein S/D 1.40 Pulmonary Valve PV Pk José: 2.72 PV Min José: 1.80 Peak PV Grad: 30.00 PV Mn Grad: 16.00 Updated in Other Vendor System with Status of Final Arben Reyes MD electronically signed on 07/12/2024 4:50:03 PM with status of Final
--- NOTE | 2024-07-12 12:33 | HM_ITS ---
Conclusion: 1. Patient was monitored for total period of 3 days 2. Baseline was normal sinus rhythm with average heart of 60 beats per minute 3. No significant pauses noted with frequent sinus bradycardia noted with 36% of time heart rate below 60 beats per minute 4. Rare PACs and PVCs noted without any significant atrial fibrillation 5. Patient marked the counter 4 times correlating with sinus rhythm MTDD
== END ==
LOC: HO.CARD 12:29
PROVIDERS: PCP Nurse Practitioner Family; Visit Provider Internal Medicine Cardiovascular Disease
DX: I48.0 Paroxysmal atrial fibrillation (principal)
CPT/HCPCS: 93242; 93306

== ENCOUNTER → 2024-07-12 12:33 | Outpatient (BNV) | payer OTHER, SELFPAY | PROVIDERS: PCP Nurse Practitioner Family; Visit Provider Internal Medicine Cardiovascular Disease | DX: I49.1 Atrial premature depolarization (principal); I49.3 Ventricular premature depolarization | CPT/HCPCS: 93244; 93306 ==

== ENCOUNTER 2024-07-29 08:56 | Outpatient (AMB) | payer OTHER, SELFPAY ==
[2024-07-29 08:58] VITALS: BP 130/70; PULSE 72; O2SAT 97; BMI 31.8
--- NOTE | 2024-07-29 08:58 | A.OFFPC_ITS ---
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 History of Present Illness The patient is a 78-year-old male presenting with a history of Chronic Obstructive Pulmonary Disease (COPD). The patient reports experiencing shortness of breath consistently when walking, which has been a chronic issue. Despite not smoking currently, he has a significant history of smoking. Essential hypertension is noted, with his blood pressure currently well-controlled. Additionally, the patient has cutaneous lesions on his right cheek, identified as pustules, and a darker, slightly raised lesion on his left cheek. He has previously consulted a government services professional, but surgical intervention was not recommended due to the risk of facial nerve damage. Social History - History of smoking but has successfull y quit a long time ago. - No current employment or family status details discussed. Health Maintenance - Regular low-dose CT scans for lung scr eening. 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 - No colonoscopies recommended due to ag e. - No vaccines desired by the patient at present. Review of Systems - Respiratory: Reports consistent shortn ess of breath with walking. - Genitourinary: Denies urinary problems or nocturia. Physical Exam - General- Vital signs are within normal limits. -neck supple - Neurological- Balance tested; no abnor malities noted. - Dermatological- Presence of large pust ules on the right cheek and a darker, slightly raised lesion on the left cheek. - Cardiovascular- Evaluation of heart; n o abnormalities mentioned. - Urological- External genital examinati on; no lumps or bumps observed upon coughing test. refused EBONY today A+Ox3, speech clear Results Plan - Chronic Obstructive Pulmonary Disease COPD): follow-up with thoracic specialists for continued lung health screening and management. - Hypertension: Continue current managem ent and monitoring as blood pressure is well-controlled. - Dermatologic Lesion: Conservative catrina gement given prior dermatological evaluation; monitor for any changes. - History of smoking: Continue lung scre ening with low-dose CT scans as indicated. Patient was informed and verbally consented to the use of an ambient scribe for clinic note documentation during this visit. Discussion Notes I discussed the patient's chronic obstructive pulmonary disease and recommended a pulmonary function test to further evaluate lung function. The importance of maintaining lung health was emphasized given the patient's history of smoking. For hypertension, I acknowledged the patient's well-controlled blood pressure and advised continuing current management. Regarding the dermatological lesions, I explained the dermatological evaluation's findings and supported the decision for conservative management due to the risks of facial nerve damage. We reviewed the benefits of regular lung screenings due to his smoking history. The patient was instructed to contact the thoracic specialist for further lung evaluation. Finally, future health maintenance visits were scheduled, with an emphasis on a follow-up for lab tests. Patient Instructions - Schedule a pulmonary function test as soon as possible. - Continue monitoring blood pressure; ma intain current medications as prescribed. - Observe any changes in skin lesions an d report them promptly. - Follow up with thoracic specialists fo r lung health assessment. - Visit the lab for blood tests after fa sting for 12 hours, as discussed. - Return for health maintenance in [facility]. [facility] Medical History Paroxysmal atrial fibrillation Persistent atrial fibrillation Atrial fibrillation with RVR Pulmonic stenosis BPH (benign prostatic hyperplasia) Smoker History of ETOH abuse Hx of gastritis Migraine Surgical History Status post incision and drainage Hx of colonoscopy History of esophagogastroduodenoscopy (EGD) Family History Brother Mental health disorder Social History Household Members: Spouse Housing: Apartment Do you presently have visiting nurse or other home services: No Patient Tobacco Use Status: Former Tobacco user Tobacco use type: Cigarette Cigarettes Per Day: 7 Years Smoked: 50 e-Cigarette/Vaping Use: Never Used Second Hand Smoke Exposure: Yes Advance Directives Date on File: 09/03/23 service: No Current occupational status: retired Cognitive needs: No Hearing needs: No Vision needs: No Questionnaire PHQ-9 Over the last 2 weeks, how often have you been bothered by any of the following problems? 1. Little interest or pleasure in doing things: not at all 2. Feeling down, depressed, or hopeless: not at all 3. Trouble falling or staying asleep, or sleeping too much: more than half the days 4. Feeling tired or having little energy: more than half the days 5. Poor appetite or overeating: several days 6. Feeling bad about yourself - or that you are a failure or have let yourself or your family down: not at all 7. Trouble concentrating on things, such as reading the newspaper or watching television: not at all 8. Moving or speaking so slowly that other people could have noticed. Or the opposite - being so fidgety or restless that you have been moving around a lot more than usual: not at all 9. Thoughts that you would be better off or of hurting yourself in some way: not at all Total score: 5 Depression Screening Interpretation: Negative Depression Screening Done: Yes 33566 - PHQ-9 Billing: Yes Source: Developed by Drs. Andrew Flowers, Lauren Humphries, Vimal Zuniga and colleagues, with an educational garrick from [employer]. Thrive Questionnaire Date Thrive assessed: 07/29/24 I am a: Patient What is your living situation today?: I have a steady place to live Within the past 12 months, did the food you bought not last and you didn't have the money to get more?: Never true Within the past 12 months, did you worry whether your food would run out before you got money to buy more?: Never true Do you have trouble paying for medicines?: No Do you have trouble getting transportation to medical appointments?: No Do you have trouble paying your heating and electricity bill?: No Do you have trouble taking care of your child, family member or friend?: No Do you have trouble with day-to-day activities such as bathing, preparing meals, shopping, managing finances, etc.?: No Are you currently unemployed and looking for a job?: No Are you interested in more education?: No Please select the resources that you would like help with: None Currently or been in a relationship where the following occur: No concerns reported THRIVE Score: 0 AUDIT C Alcohol Use Questionnaire (AUDIT-C) 1. How often do you have a drink containing alcohol?: Never 3. How often do you have six or more drinks on one occasion?: Never Total Score: 0 Score Reviewed/Action Taken: Yes JASBIR-7 AMB Questionnaire JASBIR-7 Date JASBIR - 7 assessed: 07/29/24 Feeling nervous, anxious, or on edge: 0 = Not at all Not being able to stop or control worryin = Not at all Worrying too much about different things: 1 = Several days Trouble relaxin = Not at all Being so restless that it is hard to sit still: 0 = Not at all Becoming easily annoyed or irritable: 1 = Several days Feeling afraid as if something awful might happen: 0 = Not at all Total JASBIR-7 score (0-4 normal; 5-9 mild; 10-14 moderate; 15-21 severe): 2 Source: Developed by Drs. Andrew Flowers, Lauren Humphries, Vimal Zuniga and colleagues, with an educational garrick from [employer]. JASBIR-7 Assessment Billing JASBIR-7 Assessment Tool: JASBIR-7 Assessment 34033 Physical exam (Primary Care) Vital Signs: Last Vital Signs Pulse 72 07/29/24 08:58 BP 130/70 07/29/24 08:58 Pulse Ox 97 07/29/24 08:58 BMI result Body Mass Index 31.8 Tobacco/Smoking Status: Tobacco use Status Tobacco use date assessed 09/15/23 07/29/24 09:03 Patient Tobacco Use Status Former Tobacco user 07/29/24 09:03 Tobacco use type Cigarette 07/29/24 09:03 e-Cigarette/Vaping Use Never Used 07/29/24 09:03 PHQ-9: PHQ-9 Score PHQ-9: Total score 5 07/29/24 09:03 Depression Screening Interpretation: Negative Thrive Assessment: Date of Thrive Assessment Date Thrive assessed 07/29/24 07/29/24 09:03 Currently or been in a relationship where the following occur: No concerns reported Coding Level of Care Code Est Pt Prev Care >65y(68711) Diagnoses Physical exam Z00.00 Screening PSA (prostate specific antigen) Z12.5 Nocturia R35.1 Additional Codes JASBIR-7 Assessment Billing - JASBIR-7 Assessment Tool: JASBIR-7 Assessment 30704 ([id number]) PHQ-9 - 03009 - PHQ-9 Billing: Yes ([id number]) Assessment & Plan Assessment & Plan (1) Physical exam: Code(s): Z00.00 - Encounter for general adult medical examination without abnormal findings Category: Medical (2) Screening PSA (prostate specific antigen): Code(s): Z12.5 - Encounter for screening for malignant neoplasm of prostate Category: Medical (3) Nocturia: Code(s): R35.1 - Nocturia Category: Medical Plan . Orders: Orders TSH reflex Free T4 Today Z00.00 - Encounter for general adult medical examination without abnormal findings Lipid Panel Today Z00.00 - Encounter for general adult medical examination without abnormal findings Prostate Specific Antigen Scr Today Z12.5 - Encounter for screening for malignant neoplasm of prostate Complete Blood Count Auto Diff Today Z00.00 - Encounter for general adult medical examination without abnormal findings Comprehensive [place]. Panel Fast Today Z00.00 - Encounter for general adult medical examination without abnormal findings UA CC w/rflx Micro + Cult Today Z00.00 - Encounter for general adult medical examination without abnormal findings Referrals Urology Referral R35.1 - Nocturia
== END 2024-07-29 10:37 | disposition home or self-care (01) ==
PROVIDERS: PCP Nurse Practitioner Family; Visit Provider Nurse Practitioner Family
DX: Z00.00 Encounter for general adult medical examination without abnormal findings (principal); Z12.5 Encounter for screening for malignant neoplasm of prostate; R35.1 Nocturia

== ENCOUNTER → 2024-07-29 08:56 | Outpatient (BNVA) | payer OTHER, SELFPAY | PROVIDERS: PCP Nurse Practitioner Family; Visit Provider Nurse Practitioner Family | DX: I48.0 Paroxysmal atrial fibrillation (principal); R00.1 Bradycardia, unspecified | CPT/HCPCS: 93005; 96127; 99212; 99397 ==

== ENCOUNTER 2024-07-29 13:39 | Outpatient (AMB) | payer OTHER, SELFPAY ==
[2024-07-29 13:43] VITALS: BP 110/68; PULSE 53; BMI 31.4
--- NOTE | 2024-07-29 13:43 | MHC.OFFVIS ---
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 Overall he has been doing well. He still gets short of breath walking but no progressive shortness of breath, orthopnea, PND. No leg swelling. He said he gets short of breath when he bends over. He has not had any prolonged irregular heartbeat or palpitations. No bleeding issues or neurologic events. Takes Eliquis although it is not listed on his list. He is currently not on Lasix therapy. No lightheadedness, syncope. No bleeding issues or neurologic events. [facility] Medical History (Updated 07/29/24 @ 14:00 by Arben Reyes MD) Elevated brain natriuretic peptide (BNP) level Persistent atrial fibrillation Paroxysmal atrial fibrillation Atrial fibrillation with RVR Pulmonic stenosis BPH (benign prostatic hyperplasia) Smoker History of ETOH abuse Hx of gastritis Migraine Surgical History Status post incision and drainage Hx of colonoscopy History of esophagogastroduodenoscopy (EGD) Family History Brother Mental health disorder Social History Household Members: Spouse Housing: Apartment Do you presently have visiting nurse or other home services: No Patient Tobacco Use Status: Former Tobacco user Tobacco use type: Cigarette Cigarettes Per Day: 7 Years Smoked: 50 e-Cigarette/Vaping Use: Never Used Second Hand Smoke Exposure: Yes Advance Directives Date on File: 09/03/23 service: No Current occupational status: retired Cognitive needs: No Hearing needs: No Vision needs: No Review of Systems Const Denies chills, Denies fatigue, Denies fever(s), Denies frequent falls, Denies weakness, Denies weight gain and Denies weight loss ENT Denies dizziness Card Denies chest pain, Denies leg edema, Denies lightheadedness, Denies palpitations, Denies dyspnea, Denies dyspnea on exertion, Denies orthopnea and Denies other (loss of consciousness) Resp Denies cough, Denies dyspnea and Denies dyspnea on exertion GI Denies hematochezia and Denies change in stool character Musc Denies abnormal gait, Denies muscle weakness, Denies numbness, Denies radiating pain into limb and Denies tingling Neuro Denies abnormal gait, Denies dizziness, Denies frequent falls, Denies numbness, Denies tingling and Denies weakness Endo Denies fatigue and Denies palpitations Physical Exam Vital Signs: Last Vital Signs Pulse 53 07/29/24 13:43 BP 110/68 07/29/24 13:43 BMI result Body Mass Index 31.4 Last Vital Signs Temp 98.5 F 09/04/23 07:20 Pulse 85 09/04/23 07:20 Resp 13 09/04/23 07:20 BP 137/90 H 09/04/23 07:20 Pulse Ox 94 09/04/23 07:20 O2 Del Method Room Air 09/04/23 07:20 BMI result Body Mass Index 31.6 Const General: comfortable and no acute distress Orientation/consciousness: patient oriented x3 HEENT Other: Unremarkable Head: Yes normal to inspection Neck Neck: Yes JVD Chest Chest palpation & inspection: normal inspection of the chest Resp Auscultation: clear to auscultation bilaterally and diminished lung sounds Cardio Palpation: normal PMI Rate: regular rate Rhythm: regular rhythm Heart sounds: S1 normal heart sound present, S2 normal heart sound present, no gallops, no murmurs and no rubs GI Palpation (GI): Soft to palpation Back/Spine/Pelvis Other: unremarkable Skin General skin exam: no rashes or lesions noted Neuro General: patient oriented x3 Extrem General: Yes normal to inspection Psych Mental Status: mental status grossly normal Office Procedures EKG Details: EKG shows sinus bradycardia with nonspecific ST T wave changes [id number]-[id number], Complete Assessment & Plan Assessment & Plan (1) Paroxysmal atrial fibrillation: Code(s): I48.0 - Paroxysmal atrial fibrillation Category: Medical Plan: Paroxysmal atrial fibrillation has remained stable and with improved symptoms and no heart failure signs on rhythm control approach. Continue amiodarone therapy. Will reduce Cardizem, see below. Continues to have symptoms exertional shortness of breath. Will obtain chest x-ray to assess for any pulmonary infiltrates. Continue full oral anticoagulation, currently on Eliquis 5 mg b.i.d.. (2) Sinus bradycardia: Code(s): R00.1 - Bradycardia, unspecified Category: Medical Plan: Sinus bradycardia related to dual therapy with Cardizem and amiodarone. Could be contributing to his exertional shortness of breath due to chronotropic incompetence. Will reduce Cardizem CD to 120 mg daily. Advised to monitor for signs and symptoms of heart failure. Clinically appears to be euvolemic and well compensated and does no current indication for diuretic therapy. Continue aggressive COPD management. Continue rhythm control approach. Chest x-ray as above. Will follow up in the clinic in 6 months time, sooner p.r.n.. Thank you for allowing me to partake in his care Orders: Orders Basic Metabolic Panel Today I48.0 - Paroxysmal atrial fibrillation Complete Blood Count no Diff Today I48.0 - Paroxysmal atrial fibrillation XR chest 2V Today I48.0 - Paroxysmal atrial fibrillation Medications: New apixaban (Eliquis) 5 mg PO BID 60 tabs 5RF I48.0 - Paroxysmal atrial fibrillation diltiazem HCl CD (Cardizem CD) 120 mg PO DAILY 30 caps 5RF I48.0 - Paroxysmal atrial fibrillation Discontinued diltiazem HCl CD Discontinued Reason: Doctor's Order 240 mg See Protocol PO DAILY 90 days 90 caps 3RF Coding Level of Care Code Est Pt Level 4 (56720) Complex EM visit Add On G2211 Diagnoses Paroxysmal atrial fibrillation I48.0 Sinus bradycardia R00.1 CPT Codes EKG - CPT: 44901-[id number], Complete ([id number])
== END 2024-07-29 14:00 | disposition home or self-care (01) ==
PROVIDERS: PCP Nurse Practitioner Family; Visit Provider Internal Medicine Cardiovascular Disease
DX: I48.0 Paroxysmal atrial fibrillation (principal); R00.1 Bradycardia, unspecified
CPT/HCPCS: 93010; 99214; G2211

== ENCOUNTER 2024-07-29 14:06 | Outpatient (REF) | payer OTHER, SELFPAY ==
--- NOTE | ~2024-07-29 | XR_ITS ---
EXAMINATION: XR CHEST CLINICAL INFORMATION: I48.0 - Paroxysmal atrial fibrillation COMPARISON: Chest radiograph 09/02/2023. TECHNIQUE: 2 views of the chest were obtained. FINDINGS: The lungs are adequately expanded. Again noted prominence of the left hilum correlating to dilated left pulmonary artery on prior CT. No focal consolidation. No pleural effusions or pneumothorax. The cardiac mediastinal silhouette is within normal limits. Degenerative changes of the thoracic spine. No acute osseous abnormality. XR/XR chest 2V IMPRESSION: No acute pulmonary disease. Electronically signed by: Adrien Meraz MD 07/30/2024 08:11 [facility]
[2024-07-29 14:39] LABS: Hematocrit 41.3 % (42.0-52.0); Hemoglobin 14.2 g/dl (14.0-18.0); Mean Corpuscular HGB Conc 34.4 g/dl (31.0-36.0); Mean Corpuscular Hemoglobin 29.9 pg (27.0-33.0); Mean Corpuscular Volume 86.9 fL (80.0-98.0); Platelet Count 210 X10*3/uL (160-400); Red Blood Count 4.75 X10*6/uL (4.60-5.80); Red Cell Distribution Width 14.4 % (11.0-16.0); White Blood Count 6.1 X10*3/uL (4.8-10.8)
[2024-07-29 15:00] LABS: Anion Gap 12 (12-20); Blood Urea Nitrogen 22 mg/dL (9-16); Calcium 9.4 mg/dL (8.4-10.2); Carbon Dioxide 27 mmol/L (22-29); Chloride 109 mmol/L (96-108); Estimated Glomerular Filt Rate 49; Glucose Random 110 mg/dL (60-115); Potassium 3.7 mmol/L (3.3-5.1); Sodium 144 mmol/L (135-145)
== END 2024-07-29 14:07 | disposition home or self-care (01) ==
LOC: HO.XRAY 14:06
PROVIDERS: PCP Nurse Practitioner Family; Visit Provider Internal Medicine Cardiovascular Disease
DX: I48.0 Paroxysmal atrial fibrillation (principal); Z00.00 Encounter for general adult medical examination without abnormal findings; R00.1 Bradycardia, unspecified; Z79.01 Long term (current) use of anticoagulants
CPT/HCPCS: 36415; 71046; 80048; 85027; 93005; 96127; 99212; 99397

== ENCOUNTER 2024-08-17 09:45 | Outpatient (REF) | payer OTHER, SELFPAY ==
--- NOTE | 2024-08-17 09:58 | PFT_ITS ---
Indication: COPD Spirometry [FEV1 to FVC 70%; FEV1 1.82 L; FVC 2.62 L. No significant response to bronchodilators noted. To note the FEF 01/25/2075 this down to 37% predicted. Maximum voluntary ventilation 70% predicted.] Lung Volumes [Total capacity 80% predicted; residual volume 90% predicted; expiratory reserve volume 36% predicted] Diffusion Capacity [DLCO 78% predicted] Comparisons [None] Interpretation [There is an obstructive ventilatory defect consistent with moderate COPD. There is evidence of partial reversibility and also significant small airways disease bringing up the question of asthma COPD overlap syndrome. The patient does have a a decreasing in the maximum voluntary ventilation likely secondary to deconditioning. Lung volumes are within normal limits except for decreasing the expiratory reserve volume secondary to an elevated BMI. There is mild diffusion impairment. Clinical correlation warranted.] MTDD
[2024-08-17 11:25] VITALS: PULSE 68; O2SAT 97
== END 2024-08-17 09:46 | disposition home or self-care (01) ==
LOC: HO.RESP 09:45
PROVIDERS: PCP Nurse Practitioner Family; Visit Provider Nurse Practitioner Family
DX: J44.9 Chronic obstructive pulmonary disease, unspecified (principal)
CPT/HCPCS: 94010; 94640; 94727; 94729

== ENCOUNTER → 2024-08-17 09:58 | Outpatient (BNV) | payer OTHER, SELFPAY | PROVIDERS: PCP Nurse Practitioner Family; Visit Provider Hospitalist | DX: J44.9 Chronic obstructive pulmonary disease, unspecified (principal) | CPT/HCPCS: 94060; 94727; 94729 ==

== ENCOUNTER 2024-11-04 13:09 | Outpatient (AMB) | payer MEDICARE, MEDICAID, SELFPAY ==
--- NOTE | 2024-11-04 13:11 | A.OFFVIS_ITS ---
Intake Visit Reasons: nocturia Intake Note: New Patient presents for initial visit for nocturia Urology Medications: none Blood Thinner: apixaban PVR: 12ml's Allergies No Known Allergies [No Known Allergies*] Allergy (Verified 11/04/24 13:47) Medication List - Last Reconciled 11/04/24 by SHAYAN Wong amiodarone 100 mg PO DAILY apixaban (Eliquis) 5 mg PO BID diltiazem HCl CD (Cardizem CD) 120 mg PO DAILY omeprazole 20 mg PO DAILY HPI Comments Details: Randall is a very pleasant 79-year-old male patient of Dr. Friedman who was accompanied by his significant other at today's office visit. He has a past medical history of COPD, persistent atrial fibrillation, pulmonic stenosis, previous nicotine dependence, history of ETOH abuse, gastritis, and migraines. He presents to the office today as a new patient for nocturia. In discussion with the patient today he reports noting over the last 6 months to a year to be having consistent episodes of nocturia up to 3 times per night. When asked he does endorse to be drinking fluids up to/prior to bed. In office urinalysis results reviewed with the patient today. PVR 12 mL. In review of patient's chart it appears PSAs are as follows: 05/31 2.0 01/29 1.5 He otherwise denies urinary urgency, urinary frequency, incontinence, hematuria, dysuria, foul smelling urine, changes to urinary stream, flank pain, fever, and or chills. we discussed potential causes for nocuturia as well as further treatment options and risks and benefits of these interventions. He does report being tested for sleep apnea over 3 years ago however does not recall where. He does recall being told he had sleep apnea however not requiring further intervention. He does report snoring and fatigue upon wakening. We discussed obtaining sleep study, retroperitoneal ultrasound, and PSA for further assessment evaluation.EBONY offered however deferred. He otherwise offers no other issues or concerns at this time. [facility] Medical History Elevated brain natriuretic peptide (BNP) level Persistent atrial fibrillation Paroxysmal atrial fibrillation Atrial fibrillation with RVR Pulmonic stenosis BPH (benign prostatic hyperplasia) Smoker History of ETOH abuse Hx of gastritis Migraine Surgical History Status post incision and drainage Hx of colonoscopy History of esophagogastroduodenoscopy (EGD) Family History Brother Mental health disorder Social History Household Members: Spouse Housing: Apartment Do you presently have visiting nurse or other home services: No Patient Tobacco Use Status: Former Tobacco user Tobacco use type: Cigarette Cigarettes Per Day: 7 Years Smoked: 50 e-Cigarette/Vaping Use: Never Used Second Hand Smoke Exposure: Yes Advance Directives Date on File: 09/03/23 service: No Current occupational status: retired Cognitive needs: No Hearing needs: No Vision needs: No Review of Systems Const All systems reviewed & are unremarkable except as noted in HPI and below Physical Exam Const General: cooperative, comfortable, no acute distress, well developed, alert and awake Orientation/consciousness: patient oriented x3 Limitations: no limitations HEENT Head: Yes normal to inspection, Yes normocephalic and Yes atraumatic Ears: hearing grossly normal bilaterally Eyes General: appearance normal, both eyes and all related structures Neck Neck: Yes normal visual inspection and Yes trachea midline Chest Chest palpation & inspection: normal inspection of the chest Resp Effort & Inspection: normal respiratory effort and able to speak in complete sentences Cardio Rate: regular rate GI Inspection: Yes normal to inspection General: Yes no CVA tenderness Back/Spine/Pelvis Back: no CVA tenderness Skin General skin exam: no rashes or lesions noted Neuro General: patient oriented x3 Extrem General: Yes normal to inspection Psych Appearance: grossly normal and well kempt Mental Status: mental status grossly normal Speech and movement: Normal speech and movement present and Clear speech present Affect: normal affect Attitude: cooperative Thought process: Normal thought process present Thought content: Normal thought content present Insight: Fair insight present (Psych) Judgement: Fair judgement present (Psych) Office Procedures Post Void Residual Post Residual Void Post Void Residual (PVR): 12 14492-Hjrb Void Residual by ultrasound Results AMB Urinalysis, Automated UA Leukoctes 15 Kenney/uL Last Edit by Crystal Lion on 11/04/24 13:32 UA Nitrite Negative Last Edit by Crystal Lion on 11/04/24 13:32 UA Urobilinogen 0.2 mg/dL Last Edit by Crystal Lion on 11/04/24 13:32 UA Protein 30 mg/dL Last Edit by Crystal Lion on 11/04/24 13:32 UA pH 6.0 Last Edit by Crystal Lion on 11/04/24 13:32 UA Blood 0 Pedro Pablo/uL Last Edit by Crystal Lion on 11/04/24 13:32 UA Specific [place] 1.030 Last Edit by Crystal Lion on 11/04/24 13:32 UA Ketone Negative Last Edit by Crystal Lion on 11/04/24 13:32 UA Bilirubin 1 mg/dL Last Edit by Crystal Lion on 11/04/24 13:32 UA Glucose 0 mg/dL Last Edit by Crystal Lion on 11/04/24 13:32 Results Reviewed Results Reviewed: Laboratory Last Values Urine pH (Auto) 6.0 11/04/24 13:25 Specific [place] (Auto) 1.030 11/04/24 13:25 Urine Protein (Auto) 30 mg/dL 11/04/24 13:25 Glucose (UA)(Auto) 0 mg/dL 11/04/24 13:25 Urine Ketones (Auto) Negative 11/04/24 13:25 Urine Blood (Auto) 0 Pedro Pablo/uL 11/04/24 13:25 Urine Nitrite (Auto) Negative 11/04/24 13:25 Urine Bilirubin (Auto) 1 mg/dL 11/04/24 13:25 Urine Urobilinogen (Auto) 0.2 mg/dL 11/04/24 13:25 Leukocyte Esterase (Auto) 15 Kenney/uL 11/04/24 13:25 Assessment & Plan Assessment & Plan (1) Nocturia: Code(s): R35.1 - Nocturia Category: Medical Plan In office urinalysis results reviewed with the patient today; as noted above. PVR 12 mL. Previous PSA results reviewed with the patient today; as noted above. We discussed at length potential causes of nocturia as well as further workup in risks and benefits of these interventions. Discussed potential near future in office cystoscopy and or urodynamics for further assessment evaluation. Start Flomax as discussed and prescribed. Will obtain sleep study, retroperitoneal ultrasound, and PSA for further assessment evaluation. EBONY offered however deferred. Discussed importance of limiting fluids 2-3 hours prior to bed to decrease episodes of nocturia. Follow-up in 1-3 months with imaging, and labs to be completed prior; or sooner with any issues, concerns, and or questions. Orders: Orders AMB Urinalysis Automated Today Z13.9 - Encounter for screening, unspecified AMB Post Void Residual by ultrasound Today R35.1 - Nocturia RT home sleep study Today R06.83 - Snoring, R35.1 - Nocturia, R53.83 - Other fatigue US retroperitoneal comp Today R35.1 - Nocturia Prostate Specific Antigen Today R35.1 - Nocturia Medications: New tamsulosin 0.4 mg PO BEDTIME 30 days 30 caps 3RF N40.1 - Benign prostatic hyperplasia with lower urinary tract symptoms, R35.1 - Nocturia Patient Instructions: The patient had an opportunity to ask questions regarding the treatment plan. All questions were answered. Physical exam, labs, and imaging were discussed and reviewed in detail. As well as risks, benefits, and discussion of treatment choices. No major barriers to understanding were identified. The patient expressed understanding and agreement with the above treatment plan. The patient was made aware they should contact our office by phone for worsening of their current condition, the appearance of new symptoms, or with any questi ons or concerns. Compliance is encouraged with any medications and follow up testing that is ordered. It is a privilege to be allowed the opportunity to participate in? your urological care.? Again, if you have any questions or concerns If you have any questions or concerns please do not hesitate to contact me. The office is [phone]. This note is constructed using voice recognition software. While every effort has been made to ensure accuracy sex therapist errors may have been included. Yours sincerely, MONICA Wong Coding Level of Care Code New Pt Level 4 (04959) Diagnoses Nocturia R35.1 CPT Codes Post Residual Void - PVR CPT Code: 64182-[id number] Void Residual by ultrasound ([id number])
--- OUTSIDE RECORDS SUMMARY | 2024-11-04 15:42 | XMS_ITS | Patient Health Record ---
Author Organization [facility] Address [address] [place] [address] Care Team Providers Care Knitting Demonstrator Name Role Phone BRUNO GIL Primary Care Provider Andrew Herbert Unavailable [phone] ALLERGIES No Known Allergies REASON FOR REFERRAL No Information MEDICATIONS Medication SIG (Take, Route, Fr equency, Duration) Notes Start Date End Date Status Omeprazole 20 MG TAKE 1 CAPSULE BY [facility] EVERY DAY IN THE MORNING for 90 Active IMMUNIZATIONS Vaccine Route Administration Date Status Comme nts Influenza Unknown 05/28/2022 Administered Influenza Unknown 12/01/2018 Refused SOCIAL HISTORY Tobacco Use: Social History Observation Description Date Details (start date - stop date) Current Smoker NA - NA Sex Assigned At : Social History Observation Description Sex Assigned At Unknown Tobacco Use/Smoking Question Answer Notes Patient is a current smoker How often do you smoke cigarettes? every day How many cigarettes a day do you smoke? 21-30 Are you interested in quitting? Ready to quit Alcohol Screen Question Answer Notes Did you have a drink contain ing alcohol in the past year? Yes How often did you have a dri nk containing alcohol in the past year? Never (0 point) How many drinks did you have on a typical day when you were drinking in the past year? 1 or 2 drinks (0 point) Points 0 Interpretation Negative PROBLEMS Problem Type ICD Code Onset Dates Problem Status W/U Status Risk SNOMED Code Notes Problem Encounter for screening for malignant neoplasm of colon (Z12.11) Active confirmed 884787750 Problem History of adenomatous polyp of colon (Z86.010) Active confirmed History of adenomatous polyp of colon (412136651) Problem Duodenitis (K29.80) Active confirmed Duodenitis (72094313) Problem History of colon polyps (Z86.010) Active confirmed 787668471 Problem Gastritis (K29.70) Active confirmed Gastritis (1099739) Problem Abnormal CT scan, esophagus (R93.3) Active confirmed 535149563 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 pylori infection (A04.8) Active confirmed 609833254 Problem Erosive gastritis (K29.60) Active confirmed 9084873957016529 Problem Diverticulosis of colon (K57.30) Active confirmed Diverticulosi s of colon (210989663) Problem Gastro-esophageal reflux disease with esophagitis, without bleeding (K21.00) Active confirmed Gastroesophagea l reflux disease with esophagitis (disorder) (688511161) PLAN OF TREATMENT Future Test Test Name Order Date UPPER GI ENDOSCOPY 12/01/2018 COLONOSCOPY 12/01/2018 UPPER GI ENDOSCOPY 01/08/2022 COLONOSCOPY 01/08/2022 Insurance Providers Payer Name Payer Address Payer Phone Subscriber Number Group Number Insured Name Patient Relationship to Insured Coverage Start Date Coverage End Date [facility] [address] [address] [place] [address] [phone] [id number] KATHY NI Self - patient is the insured 2 MEDICAID OF [facility] [address] [place] [address] [phone] [id number] KATHY NI Self - patient is the insured MEDICARE OF [place] [address] [place] [address] [phone] [id number] KATHY NI Self - patient is the insured MEDICAL (GENERAL) HISTORY Medical History History ICD Code Denies [place],DM,CVA,Lung disease,renal dise ase EGD 12/2017-erosive gastritis and erosive duodenitis with gastric biopsies + for H.pylori but not clear if that was ever treated; reflux esophagitis with a small hiatal hernia-biopsies negative for Martinez's Colonoscopy 12/2017-multiple colon polyps, including a > 1cm tubulovillous adenoma and several tubular adenomas EGD 02/2022 revealed a mild e rosive esophagitis, small hiatal hernia, duodenitis, and gastritis. Biopsies were positive for H. pylori and a small area of Martinez's esophagus, without dysplasia. The H. pylori was treated with a course of antibiotics, amoxicillin and clarithromycin, and PPI Colonoscopy in 02/2022 revealed a small t ubular adenoma that was removed Surgical History Surgery Date(Month/Year) Abscess drained by Dr. Lopez 2018
== END 2024-11-04 13:47 | disposition home or self-care (01) ==
PROVIDERS: PCP Nurse Practitioner Family; Visit Provider Nurse Practitioner Family
DX: Z13.9 Encounter for screening, unspecified (principal); R35.1 Nocturia
CPT/HCPCS: 99204

== ENCOUNTER → 2024-11-04 13:09 | Outpatient (BNVA) | payer OTHER, SELFPAY | PROVIDERS: PCP Nurse Practitioner Family; Visit Provider Nurse Practitioner Family | DX: R35.1 Nocturia (principal) | CPT/HCPCS: 51798; 81003; 99202 ==

== ENCOUNTER 2024-12-20 12:54 | Outpatient (REF) | payer MEDICARE, SELFPAY ==
--- NOTE | ~2024-12-20 | US_ITS ---
CLINICAL HISTORY: R35.1 - Nocturia US Renal Comparison: None Findings: Right kidney normal length and echotexture, 10.6 cm length. Left kidney normal length and echotexture, 11.6 cm length. There is thinning of renal parenchyma bilaterally. There are renal vascular calcifications bilaterally. No collecting system dilatation of either kidney. Normal color Doppler. The urinary bladder was decompressed and could not be evaluated. IMPRESSION: 1. The urinary bladder was decompressed and could not be evaluated. 2. There is bilateral renal volume loss. This document has been electronically signed by: Angeles Helm MD on 12/21/2024 15:00:12
--- OUTSIDE RECORDS SUMMARY | 2024-12-20 14:47 | XMS_ITS | Patient Health Record ---
Author Organization [facility] Address [address] [place] [address] Care Team Providers Care Cost And Sales Record Supervisor Name Role Phone BRUNO GIL Primary Care Provider Andrew Herbert Unavailable [phone] Allergies No Known Allergies Reason For Referral No Information Medications Medication SIG (Take, Route, Fr equency, Duration) Notes Start Date End Date Status Omeprazole 20 MG TAKE 1 CAPSULE BY [facility] EVERY MORNING Orally Once a day for 90 days Active Immunizations Vaccine Route Administration Date Status Comme nts Influenza Unknown 05/28/2022 Administered Influenza Unknown 12/01/2018 Refused Social History Tobacco Use: Social History Observation Description Date Details (start date - stop date) Current Smoker NA - NA Tobacco Use/Smoking Question Answer Notes Patient is [...] drinks (0 point) Points 0 Interpretation Negative Section Notes: Smoker 1 ppd; heavy drinker up until approx 2014---now just occasionally Smoker 1 ppd; heavy drinker up until approx 2019--describes sobriety as of the 01/2020 OV Smoker 1 ppd; heavy drinker up until approx 2019--describes sobriety as of the 01/2020 OV Problems Problem Type SNOMED Code ICD Code Onset Dates Problem Status W/U Status Risk Notes Problem 409701358 Encounter for screening for malignant neoplasm of colon (Z12.11) Active confirmed Problem History of adenomatous polyp of colon (589859537) History of adenomatous polyp of colon (Z86.010) Active confirmed Problem Duodenitis (58686486) Duodenitis (K29.80) Active confirmed Problem 927095803 History of colon polyps (Z86.010) Active confirmed Problem Gastritis (4940416) Gastritis (K29.70) Active confirmed Problem 360392957 Abnormal CT scan , esophagus (R93.3) Active confirmed Problem Martinez esophagus (047704227) 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 pylori infection (A04.8) Active confirmed Problem 3867870294003878 Erosive gastrit is (K29.60) Active confirmed Problem Diverticulosis of colon (057136707) Diverticulosis of colon (K57.30) Active confirmed Problem Gastroesophageal reflux disease with esophagitis (disorder) (351664802) Gastro-esophageal reflux disease with esophagitis, without bleeding (K21.00) Active confirmed Plan Of Treatment Future Test Test Name Order Date UPPER GI ENDOSCOPY 12/01/2018 COLONOSCOPY 12/01/2018 UPPER GI ENDOSCOPY 01/08/2022 COLONOSCOPY 01/08/2022 Insurance Providers Payer Name Payer Address Payer Phone Subscriber Number Group Number Insured Name Patient Relationship to Insured Coverage Start Date Coverage End Date [facility] [address] [address] [place] [address] [id number] KATHY NI Self - patient is the insured 2 MEDICAID OF [facility] [address] [place] [address] [phone] [id number] KATHY NI Self - patient is the insured MEDICARE OF [place] [address] [place] [address] [id number] KATHY NI Self - patient is the insured Medical (General) History Medical History History ICD Code Denies MS,DM,CVA,Lung disease,renal dise ase EGD 12/2017-erosive gastritis and [...]
== END 2024-12-20 12:55 | disposition home or self-care (01) ==
LOC: HO.US 12:54
PROVIDERS: PCP Nurse Practitioner Family; Visit Provider Nurse Practitioner Family
DX: R35.1 Nocturia (principal)
CPT/HCPCS: 76775

== ENCOUNTER → 2024-12-20 12:56 | Outpatient (BNV) | payer MEDICARE, SELFPAY | PROVIDERS: PCP Nurse Practitioner Family; Visit Provider Radiology Diagnostic Radiology | DX: N26.1 Atrophy of kidney (terminal) (principal); R35.1 Nocturia | CPT/HCPCS: 76775 ==

== ENCOUNTER → 2025-01-05 12:34 | Outpatient (REF) | payer MEDICARE, SELFPAY | LOC: HO.SL 12:34 | PROVIDERS: PCP Nurse Practitioner Family; Visit Provider Nurse Practitioner Family | DX: G47.33 Obstructive sleep apnea (adult) (pediatric) (principal); R35.1 Nocturia; R06.83 Snoring; R53.83 Other fatigue | CPT/HCPCS: 95806 ==

== ENCOUNTER → 2025-01-05 13:07 | Outpatient (BNV) | payer MEDICARE, SELFPAY | PROVIDERS: PCP Nurse Practitioner Family; Visit Provider Internal Medicine | DX: G47.33 Obstructive sleep apnea (adult) (pediatric) (principal) | CPT/HCPCS: 95806 ==

== ENCOUNTER 2025-01-11 15:31 | Outpatient (REF) | payer MEDICARE, SELFPAY ==
--- NOTE | ~2025-01-11 | US_ITS ---
EXAMINATION: US BLADDER HISTORY: NOCTURIA COMPARISON: There are no prior studies for comparison. FINDINGS: Sonographic examination of the urinary bladder was performed before and after voiding. Before voiding, the urinary bladder measured 10.6 x 6.3 x 2.7 cm, for an estimated volume of305 mL. After voiding, the urinary bladder measured 2.9 x 1.9 x 2.5, for an estimated volume of 7.4 mL. No intrinsic bladder abnormality is identified. Bilateral ureteral jets are identified. The prostate measures 2.3 x 2.6 x 2.4 cm. US/US bladder IMPRESSION: Unremarkable ultrasound of the urinary bladder. Post void bladder residual of 7.4 mL. Electronically signed by: Andrew Anne MD 01/12/2025 07:00 AM EDT
--- OUTSIDE RECORDS SUMMARY | 2025-01-11 16:40 | XMS_ITS | Patient Health Record ---
Author Organization [facility] Address [address] [place] [address] Care Team Providers Care Election Assistant Name Role Phone BRUNO GIL Primary Care Provider Andrew Herbert Unavailable [phone] Allergies No Known Allergies Reason For Referral No Information Medications Medication SIG (Take, Route, Fr equency, Duration) Notes Start Date End Date Status Omeprazole 20 MG TAKE 1 CAPSULE BY [facility] EVERY MORNING Orally Once a day for [...] Problem Status W/U Status Risk Notes Problem 412354681 Encounter for screening for malignant neoplasm of colon (Z12.11) Active confirmed Problem History of adenomatous polyp of colon (884124461) History of adenomatous polyp of colon (Z86.010) Active confirmed Problem Duodenitis (K29.80) Active confirmed Problem 536695449 History of colon polyps (Z86.010) Active confirmed Problem Gastritis (4832965) Gastritis (K29.70) Active confirmed Problem 129308871 Abnormal CT scan , esophagus (R93.3) Active confirmed Problem Martinez esophagus (637669713) 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 pylori infection (A04.8) Active confirmed Problem 4689547939762222 Erosive gastrit is (K29.60) Active confirmed Problem Diverticulosis of colon (092869270) Diverticulosis of colon (K57.30) Active confirmed Problem Gastroesophageal reflux disease with esophagitis (disorder) (588321111) Gastro-esophageal reflux disease with esophagitis, without bleeding (K21.00) Active confirmed Plan Of Treatment Future Test Test Name Order Date UPPER GI ENDOSCOPY 12/01/2018 COLONOSCOPY 12/01/2018 UPPER GI ENDOSCOPY 01/08/2022 COLONOSCOPY 01/08/2022 Insurance Providers Payer Name Payer Address Payer Phone Subscriber Number Group Number Insured Name Patient Relationship to Insured Coverage Start Date Coverage End Date [facility] [address] [address] [place] [address] [id number] KATHY NI Self - patient is the insured 2 MEDICAID OF [facility] [address] [place] [address] [id number] KATHY NI Self - patient is the insured MEDICARE OF [place] [address] [place] [address] [phone] [id number] KATHY NI Self - patient is the insured Medical (General) History Medical History History ICD Code Denies [place],DM,CVA,Lung disease,renal dise ase EGD 12/2017-erosive gastritis and [...]
== END 2025-01-11 15:32 | disposition home or self-care (01) ==
LOC: HO.US 15:31
PROVIDERS: PCP Nurse Practitioner Family; Visit Provider Nurse Practitioner Family
DX: R35.1 Nocturia (principal)
CPT/HCPCS: 76857

== ENCOUNTER → 2025-01-11 16:38 | Outpatient (BNV) | payer MEDICARE, SELFPAY | PROVIDERS: PCP Nurse Practitioner Family; Visit Provider Radiology Diagnostic Radiology | DX: R35.1 Nocturia (principal) | CPT/HCPCS: 76857 ==

== ENCOUNTER 2025-01-27 14:18 | Outpatient (AMB) | payer OTHER, SELFPAY ==
--- NOTE | 2025-01-27 14:21 | MHC.OFFVIS ---
Vital Signs 01/27/25 14:22 Height 5 ft 4 in Weight 183 lb BMI 31.4 BP 120/70 Blood Pressure Location Lt brachial Position Sitting Pulse 56 Intake Visit Reasons: 6 mth f/up Intake Note: 6 month follow-up with ekg c/o some chest pain on left side Child Care Supervisor Required: No Allergies No Known Allergies [No Known Allergies*] Allergy (Verified 11/04/24 13:47) Medication List - Last Reconciled 01/27/25 by Arben Reyes MD amiodarone 100 mg PO DAILY apixaban (Eliquis) 5 mg PO BID diltiazem HCl CD 120 mg PO DAILY omeprazole 20 mg PO DAILY tamsulosin 0.4 mg PO BEDTIME 30 days HPI Comments Details: Randall comes for follow up of his atrial fibrillation. He complains of intermittent retrosternal chest pain which is sharp in nature not with exertion. Happens at rest when he sitting or when he is sleeping. Symptoms subside on its own within less than a minute. He has not had any prolonged palpitation irregular heartbeat. Continues to have exertional shortness of breath related to COPD. Denies any orthopnea, PND, leg edema. No bleeding issues or neurologic events. [facility] Medical History DEE (obstructive sleep apnea) Elevated brain natriuretic peptide (BNP) level Persistent atrial fibrillation Paroxysmal atrial fibrillation Atrial fibrillation with RVR Pulmonic stenosis BPH (benign prostatic hyperplasia) Smoker History of ETOH abuse Hx of gastritis Migraine Surgical History Status post incision and drainage Hx of colonoscopy History of esophagogastroduodenoscopy (EGD) Family History Brother Mental health disorder Social History Household Members: Spouse Housing: Apartment Do you presently have visiting nurse or other home services: No Patient Tobacco Use Status: Former Tobacco user Tobacco use type: Cigarette Cigarettes Per Day: 7 Years Smoked: 50 e-Cigarette/Vaping Use: Never Used Second Hand Smoke Exposure: Yes Advance Directives Date on File: 09/03/23 service: No Current occupational status: retired Cognitive needs: No Hearing needs: No Vision needs: No Review of Systems Const Denies chills, Denies fatigue, Denies fever(s), Denies frequent falls, Denies weakness, Denies weight gain and Denies weight loss ENT Denies dizziness Card Denies chest pain, Denies leg edema, Denies lightheadedness, Denies palpitations, Denies dyspnea, Denies dyspnea on exertion, Denies orthopnea and Denies other (loss of consciousness) Resp Denies cough, Denies dyspnea and Denies dyspnea on exertion GI Denies hematochezia and Denies change in stool character Musc Denies abnormal gait, Denies muscle weakness, Denies numbness, Denies radiating pain into limb and Denies tingling Neuro Denies abnormal gait, Denies dizziness, Denies frequent falls, Denies numbness, Denies tingling and Denies weakness Endo Denies fatigue and Denies palpitations Physical Exam Vital Signs: Last Vital Signs Pulse 56 01/27/25 14:22 BP 120/70 01/27/25 14:22 BMI result Body Mass Index 31.4 Last Vital Signs Temp 98.5 F 09/04/23 07:20 Pulse 85 09/04/23 07:20 Resp 13 09/04/23 07:20 BP 137/90 H 09/04/23 07:20 Pulse Ox 94 09/04/23 07:20 O2 Del Method Room Air 09/04/23 07:20 BMI result Body Mass Index 31.6 Const General: comfortable and no acute distress Orientation/consciousness: patient oriented x3 HEENT Other: Unremarkable Head: Yes normal to inspection Neck Neck: Yes JVD Chest Chest palpation & inspection: normal inspection of the chest Resp Auscultation: clear to auscultation bilaterally and diminished lung sounds Cardio Palpation: normal PMI Rate: regular rate Rhythm: regular rhythm Heart sounds: S1 normal heart sound present, S2 normal heart sound present, no gallops, no murmurs and no rubs GI Palpation (GI): Soft to palpation Back/Spine/Pelvis Other: unremarkable Skin General skin exam: no rashes or lesions noted Neuro General: patient oriented x3 Extrem General: Yes normal to inspection Psych Mental Status: mental status grossly normal Assessment & Plan Assessment & Plan (1) Paroxysmal atrial fibrillation: Code(s): I48.0 - Paroxysmal atrial fibrillation Category: Medical Plan: Paroxysmal atrial fibrillation without any obvious clinical recurrence at this point time. He has done well with rhythm control approach will continue pursue rhythm control approach. He is currently on amiodarone therapy which is tolerating well. We discussed about considering ablation so he can switch to an alternative antiarrhythmic drug therapy. At this point time he said he does not want to pursue any invasive interventional procedure. Will continue low-dose amiodarone therapy. Annual check for amiodarone toxicity pursued. Continue full oral anticoagulation, currently on Eliquis 5 mg b.i.d.. Semi annual renal function test should be pursued. Avoidance of stimulants was discussed. Discussed about management in details. Follow-up echocardiogram 6 months time. (2) Sinus bradycardia: Code(s): R00.1 - Bradycardia, unspecified Category: Medical Plan: Sinus bradycardia suggestive of sinoatrial node dysfunction although mild and current on dual therapy with Cardizem and amiodarone. Currently not having any significant symptoms related to the same. At this point time no indication for pacing therapy. Continue current medications. Follow up in the clinic in 6 months time, sooner p.r.n.. Thank you for allowing me to partake in his care Orders: Orders Basic Metabolic Panel Today I48.0 - Paroxysmal atrial fibrillation Basic Metabolic Panel 6 Months I48.0 - Paroxysmal atrial fibrillation Complete Blood Count no Diff 6 Months I48.0 - Paroxysmal atrial fibrillation Liver Panel 6 Months I48.0 - Paroxysmal atrial fibrillation TSH reflex Free T4 6 Months I48.0 - Paroxysmal atrial fibrillation CA echo transthoracic complete 6 Months I48.0 - Paroxysmal atrial fibrillation XR chest 2V 6 Months I48.0 - Paroxysmal atrial fibrillation Coding Level of Care Code Est Pt Level 4 (41381) Complex EM visit Add On G2211 Diagnoses Paroxysmal atrial fibrillation I48.0 Sinus bradycardia R00.1
[2025-01-27 14:22] VITALS: BP 120/70; PULSE 56; BMI 31.4
--- OUTSIDE RECORDS SUMMARY | 2025-01-27 14:24 | XMS_ITS | Patient Health Record ---
Author Organization [facility] Address [address] [place] [address] Care Team Providers Care Stope Miner Name Role Phone BRUNO GIL Primary Care Provider Andrew Herbert Unavailable [phone] Allergies No Known Allergies Reason For Referral No Information Medications Medication SIG (Take, Route, Fr equency, Duration) Notes Start Date End Date Status Omeprazole 20 MG TAKE 1 CAPSULE BY [facility] EVERY MORNING Orally Once a [...] Problem Status W/U Status Risk Notes Problem 496024430 Encounter for screening for malignant neoplasm of colon (Z12.11) Active confirmed Problem History of adenomatous polyp of colon (292203328) History of adenomatous polyp of colon (Z86.010) Active confirmed Problem Duodenitis (20796978) Duodenitis (K29.80) Active confirmed Problem 768948036 History of colon polyps (Z86.010) Active confirmed Problem Gastritis (0306869) Gastritis (K29.70) Active confirmed Problem 451121204 Abnormal CT scan , esophagus (R93.3) Active confirmed 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 pylori infection (A04.8) Active confirmed Problem 9906028168940760 Erosive gastrit is (K29.60) Active confirmed Problem Diverticulosis of colon (161992762) Diverticulosis of colon (K57.30) Active confirmed Problem Gastroesophageal reflux disease with esophagitis (disorder) (936958715) Gastro-esophageal reflux disease with esophagitis, without bleeding (K21.00) Active confirmed Plan Of Treatment Future Test Test Name Order Date UPPER GI ENDOSCOPY 12/01/2018 COLONOSCOPY 12/01/2018 UPPER GI ENDOSCOPY 01/08/2022 COLONOSCOPY 01/08/2022 Insurance Providers Payer Name Payer Address Payer Phone Subscriber Number Group Number Insured Name Patient Relationship to Insured Coverage Start Date Coverage End Date [facility] [address] [address] [place] [address] [id number] KATHY NI Self - patient is the insured 2 MEDICAID OF [facility] [address] [place] [address] [id number] KATHY NI Self - patient is the insured MEDICARE OF [place] [address] [place] [address] [id number] KATHY NI Self - patient is the insured Medical (General) History Medical History History ICD Code Denies [place],DM,CVA,Lung disease,renal dise ase EGD 12/2017-erosive gastritis and [...]
== END 2025-01-27 14:50 | disposition home or self-care (01) ==
PROVIDERS: PCP Nurse Practitioner Family; Visit Provider Internal Medicine Cardiovascular Disease
DX: I48.0 Paroxysmal atrial fibrillation (principal); R00.1 Bradycardia, unspecified
CPT/HCPCS: 99214; G2211

== ENCOUNTER 2025-01-27 14:18 | Outpatient (REF) | payer OTHER, SELFPAY ==
[2025-01-27 16:15] LABS: Prostate Specific Antigen 2.49 ng/mL (<0.05-4.0)
[2025-01-27 16:39] LABS: Anion Gap 11 (12-20); Blood Urea Nitrogen 19 mg/dL (9-16); Calcium 9.4 mg/dL (8.4-10.2); Carbon Dioxide 26 mmol/L (22-29); Chloride 111 mmol/L (96-108); Estimated Glomerular Filt Rate > 60; Glucose Random 112 mg/dL (60-115); Potassium 4.1 mmol/L (3.3-5.1); Sodium 144 mmol/L (135-145)
== END 2025-01-27 14:19 | disposition home or self-care (01) ==
LOC: HO.LAB 14:18
PROVIDERS: Nurse Practitioner Family; PCP Nurse Practitioner Family; Visit Provider Internal Medicine Cardiovascular Disease
DX: I48.0 Paroxysmal atrial fibrillation (principal); R00.1 Bradycardia, unspecified; Z12.5 Encounter for screening for malignant neoplasm of prostate
CPT/HCPCS: 36415; 80048; 84153

== ENCOUNTER 2025-02-01 10:00 | Outpatient (AMB) | payer OTHER, SELFPAY ==
[2025-02-01 10:09] VITALS: BP 124/70; PULSE 66; O2SAT 96; BMI 31.5
--- NOTE | 2025-02-01 10:09 | MHC.PC.OV ---
Vital Signs 02/01/25 10:09 Height 5 ft 4 in Weight 183 lb 6 oz BMI 31.5 BP 124/70 Blood Pressure Location Rt brachial Position Sitting Pulse 66 Pulse Source Pulse Oximeter Pulse Oximetry (%) 96 Oxygen Delivery Method Room Air Intake Visit Reasons: 6 month follow up Allergies No Known Allergies [No Known Allergies*] Allergy (Verified 02/01/25 10:11) Tobacco use date assessed: 02/01/25 Fall risk assessment: No Falls in past year Last assessed Fall Risk: 02/01/25 Dental Screening Dental Screen Date: 02/01/25 Did you have a dental visit in the last 12 months?: No Did you have a dental problem in the last 6 months where you did not have access to dental care?: No Was dental information given to patient?: Patient has dentist HPI 6 month follow up HPI Details Chief Complaint Ongoing lower extremity weakness and discomfort with ambulation. History of Present Illness The patient is a 79-year-old male presenting with weakness in the lower extremities, particularly noticeable with ambulation and standing up. He has arthritis but describes these newer symptoms as distinct, and they are possibly aggravated by activity. A significant finding upon examination was a systolic heart murmur. The patient has a history of both asthma and COPD, and reports shortness of breath with exertion. Social History Health Maintenance Review of Systems - Cardiovascular: Reports weakness and discomfort in lower extremities. - Respiratory: Reports shortness of breath with exertion, no CP - Vascular: Reports diminished pedal pulses bilaterally. Physical Exam General: Cooperative, healthy appearing, comfortable, no acute distress and well developed Orientation: Patient oriented x3 Limitations: No limitations Head: Normal to inspection Ears: Hearing grossly normal bilaterally Nose: Normal external nose present Face and sinus: Normal facial exam Eyes: Appearance normal, both eyes and all related structures Neck: Normal visual inspection and Yes full ROM Respiratory: Diminished lung sounds but still moving air. Able to speak in complete sentences. Cardiovascular: Systolic murmur noted. Regular rate and rhythm. Normal S1 and S2 GI: Normal to inspection. Soft to palpation and nontender Skin: No rashes or lesions noted Neuro: Patient oriented x3 Extremities: Weak pedal pulses bilaterally. No active edema. No calf swelling or tenderness. Normal to inspection Results Plan Further arterial testing will be conducted to assess the vascular status of the lower extremities, given diminished pedal pulses. To further evaluate the cardiac aspect, considering the systolic murmur and existing cardiac history, I recommended cardiology follow-up. The patient was advised to ensure that cardiological and previously ordered labs are completed to aid in managing his conditions effectively, and following up with pulmonary. Discussion Notes I discussed with the patient the potential vascular and cardiac issues that may be contributing to his symptoms. Further arterial testing was recommended to ascertain any peripheral artery disease affecting the lower extremities. I emphasized the importance of cardiology consultation to evaluate the systolic murmur and manage existing cardiopulmonary conditions. The potential benefits of these evaluations include more targeted treatment and symptom relief. The patient was informed about follow-up procedures and expressed understanding and agreement with the outlined plan. Patient Instructions - Follow up with cardiology as advised. - Complete any pending laboratory tests. - Be aware of any new or worsening symptoms and seek care if necessary. - Engage in light activities as tolerated to avoid exacerbating symptoms. [facility] Medical History DEE (obstructive sleep apnea) Elevated brain natriuretic peptide (BNP) level Persistent atrial fibrillation Paroxysmal atrial fibrillation Atrial fibrillation with RVR Pulmonic stenosis BPH (benign prostatic hyperplasia) Smoker History of ETOH abuse Hx of gastritis Migraine Surgical History Status post incision and drainage Hx of colonoscopy History of esophagogastroduodenoscopy (EGD) Family History Brother Mental health disorder Social History Household Members: Spouse Housing: Apartment Do you presently have visiting nurse or other home services: No Patient Tobacco Use Status: Former Tobacco user Tobacco use type: Cigarette Cigarettes Per Day: 7 Years Smoked: 50 e-Cigarette/Vaping Use: Never Used Second Hand Smoke Exposure: Yes Advance Directives Date on File: 09/03/23 service: No Current occupational status: retired Cognitive needs: No Hearing needs: No Vision needs: No Questionnaire PHQ-9 Over the last 2 weeks, how often have you been bothered by any of the following problems? 80176 - PHQ-9 Billing: Patient declined-do not bill Source: Developed by Drs. Andrew Flowers, Vimal Clark and colleagues, with an educational garrick from [employer]. Thrive Questionnaire Date Thrive assessed: 02/01/25 I am a: Patient What is your living situation today?: I have a steady place to live Within the past 12 months, did the food you bought not last and you didn't have the money to get more?: Never true Within the past 12 months, did you worry whether your food would run out before you got money to buy more?: Never true Do you have trouble paying for medicines?: No Do you have trouble getting transportation to medical appointments?: No Do you have trouble paying your heating and electricity bill?: No Do you have trouble taking care of your child, family member or friend?: No Do you have trouble with day-to-day activities such as bathing, preparing meals, shopping, managing finances, etc.?: No Are you currently unemployed and looking for a job?: No Are you interested in more education?: No Please select the resources that you would like help with: None Currently or been in a relationship where the following occur: No concerns reported THRIVE Score: 0 AUDIT C Alcohol Use Questionnaire (AUDIT-C) 1. How often do you have a drink containing alcohol?: Never 3. How often do you have six or more drinks on one occasion?: Never Total Score: 0 Score Reviewed/Action Taken: Yes JASBIR-7 AMB Questionnaire JASBIR-7 Date JASBIR - 7 assessed: 02/01/25 Feeling nervous, anxious, or on edge: 0 = Not at all Not being able to stop or control worryin = Not at all Worrying too much about different things: 0 = Not at all Trouble relaxin = Not at all Being so restless that it is hard to sit still: 0 = Not at all Becoming easily annoyed or irritable: 0 = Not at all Feeling afraid as if something awful might happen: 0 = Not at all Total JASBIR-7 score (0-4 normal; 5-9 mild; 10-14 moderate; 15-21 severe): 0 Source: Developed by Drs. Andrew Flowers, Vimal Clark and colleagues, with an educational garrick from [employer]. JASBIR-7 Assessment Billing JASBIR-7 Assessment Tool: JASBIR-7 Assessment 73942 Physical exam (Primary Care) Vital Signs: Last Vital Signs Pulse 66 02/01/25 10:09 BP 124/70 02/01/25 10:09 Pulse Ox 96 02/01/25 10:09 Oxygen Delivery Method Room Air 02/01/25 10:09 BMI result Body Mass Index 31.5 Tobacco/Smoking Status: Tobacco use Status Tobacco use date assessed 02/01/25 02/01/25 10:12 Patient Tobacco Use Status Former Tobacco user 02/01/25 10:12 Tobacco use type Cigarette 02/01/25 10:12 e-Cigarette/Vaping Use Never Used 02/01/25 10:12 Thrive Assessment: Date of Thrive Assessment Date Thrive assessed 02/01/25 02/01/25 10:12 Currently or been in a relationship where the following occur: No concerns reported Coding Level of Care Code Est Pt Level 3 (81060) Diagnoses Leg weakness R29.898 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 Orders: Orders US arterial duplex LE BI Today R29.898 - Other symptoms and signs involving the musculoskeletal system
--- OUTSIDE RECORDS SUMMARY | 2025-02-01 10:41 | XMS_ITS | Patient Health Record ---
Author Organization [facility] Address [address] [place] [address] Care Team Providers Care Applied Behavior Science Specialist Name Role Phone BRUNO GIL Primary Care Provider Andrew Herbert Unavailable [phone] Allergies No Known Allergies Reason For Referral No Information Medications Medication SIG (Take, Route, Fr equency, Duration) Notes Start Date End Date Status Omeprazole 20 MG TAKE 1 CAPSULE BY [facility] EVERY MORNING Orally Once a day [...] Problem Status W/U Status Risk Notes Problem 777880660 Encounter for screening for malignant neoplasm of colon (Z12.11) Active confirmed Problem History of adenomatous polyp of colon (631889259) History of adenomatous polyp of colon (Z86.010) Active confirmed Problem Duodenitis (46002893) Duodenitis (K29.80) Active confirmed Problem 472237301 History of colon polyps (Z86.010) Active confirmed Problem Gastritis (3251467) Gastritis (K29.70) Active confirmed Problem 794975916 Abnormal CT scan , esophagus (R93.3) Active confirmed Problem Martinez esophagus (069649258) 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 pylori infection (A04.8) Active confirmed Problem 5366352570117208 Erosive gastrit is (K29.60) Active confirmed Problem Diverticulosis of colon (224035379) Diverticulosis of colon (K57.30) Active confirmed Problem Gastroesophageal reflux disease with esophagitis (disorder) (122477685) Gastro-esophageal reflux disease with esophagitis, without bleeding (K21.00) Active confirmed Plan Of Treatment Future Test Test Name Order Date UPPER GI ENDOSCOPY 12/01/2018 COLONOSCOPY 12/01/2018 UPPER GI ENDOSCOPY 01/08/2022 COLONOSCOPY 01/08/2022 Insurance Providers Payer Name Payer Address Payer Phone Subscriber Number Group Number Insured Name Patient Relationship to Insured Coverage Start Date Coverage End Date [facility] [address] [address] [place] [address] [id number] KATHY NI Self - patient is the insured 2 MEDICAID OF [facility] [address] [place] [address] [phone] [id number] KATHY NI Self - patient is the insured MEDICARE OF [place] [address] [place] [address] [id number] KATHY NI Self - patient is the insured Medical (General) History Medical History History ICD Code Denies [place],DM,CVA,Lung disease,renal dise ase EGD 12/2017-erosive gastritis and [...]
== END 2025-02-01 11:00 | disposition home or self-care (01) ==
LOC: HO.HMCC 10:01
PROVIDERS: PCP Nurse Practitioner Family; Visit Provider Nurse Practitioner Family
DX: R29.898 Other symptoms and signs involving the musculoskeletal system (principal); J44.89 Other specified chronic obstructive pulmonary disease

== ENCOUNTER → 2025-02-01 10:00 | Outpatient (BNVA) | payer OTHER, SELFPAY | PROVIDERS: PCP Nurse Practitioner Family; Visit Provider Nurse Practitioner Family | DX: R53.1 Weakness (principal); R01.1 Cardiac murmur, unspecified; J44.89 Other specified chronic obstructive pulmonary disease; F17.210 Nicotine dependence, cigarettes, uncomplicated | CPT/HCPCS: 96127 ==

== ENCOUNTER → 2025-02-03 20:30 | Outpatient (REF) | payer OTHER, SELFPAY ==
--- OUTSIDE RECORDS SUMMARY | 2025-02-03 21:38 | XMS_ITS | Patient Health Record ---
Author Organization [facility] Address [address] [place] [address] Care Team Providers Care Surgical Scrub Technician Name Role Phone BRUNO GIL Primary Care Provider Andrew Herbert Unavailable [phone] Allergies No Known Allergies Reason For Referral No Information Medications Medication SIG (Take, Route, Fr equency, Duration) Notes Start Date End Date Status Omeprazole 20 MG TAKE 1 CAPSULE BY [facility] EVERY MORNING Orally Once [...] Problem Status W/U Status Risk Notes Problem 799948619 Encounter for screening for malignant neoplasm of colon (Z12.11) Active confirmed Problem History of adenomatous polyp of colon (873384538) History of adenomatous polyp of colon (Z86.010) Active confirmed Problem Duodenitis (91473624) Duodenitis (K29.80) Active confirmed Problem 657819645 History of colon polyps (Z86.010) Active confirmed Problem Gastritis (9195070) Gastritis (K29.70) Active confirmed Problem 205634473 Abnormal CT scan , esophagus (R93.3) Active confirmed Problem Martinez esophagus (602596916) 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 pylori infection (A04.8) Active confirmed Problem 3227905506189607 Erosive gastrit is (K29.60) Active confirmed Problem Diverticulosis of colon (071102035) Diverticulosis of colon (K57.30) Active confirmed Problem Gastroesophageal reflux disease with esophagitis (disorder) (533259688) Gastro-esophageal reflux disease with esophagitis, without bleeding (K21.00) Active confirmed Plan Of Treatment Future Test Test Name Order Date UPPER GI ENDOSCOPY 12/01/2018 COLONOSCOPY 12/01/2018 UPPER GI ENDOSCOPY 01/08/2022 COLONOSCOPY 01/08/2022 Insurance Providers Payer Name Payer Address Payer Phone Subscriber Number Group Number Insured Name Patient Relationship to Insured Coverage Start Date Coverage End Date [facility] [address] [address] [place] [address] [id number] KATHY NI Self - patient is the insured 2 MEDICAID OF [facility] [address] [place] [address] [id number] KATHY NI Self - patient is the insured MEDICARE OF [place] [address] [place] [address] [id number] KATHY NI Self - patient is the insured Medical (General) History Medical History History ICD Code Denies [place],DM,CVA,Lung disease,renal dise ase EGD 12/2017-erosive gastritis and [...]
== END ==
LOC: HO.SL 20:30
PROVIDERS: PCP Nurse Practitioner Family; Visit Provider Hospitalist
DX: G47.33 Obstructive sleep apnea (adult) (pediatric) (principal)
CPT/HCPCS: 95811

== ENCOUNTER → 2025-02-03 20:30 | Outpatient (BNV) | payer OTHER, SELFPAY | PROVIDERS: PCP Nurse Practitioner Family; Visit Provider Internal Medicine | DX: G47.33 Obstructive sleep apnea (adult) (pediatric) (principal) | CPT/HCPCS: 95811 ==

== ENCOUNTER 2025-03-07 15:18 | Outpatient (AMB) | payer MEDICARE, MEDICAID, SELFPAY ==
--- NOTE | 2025-03-07 15:19 | A.OFFVIS_ITS ---
Intake Visit Reasons: 2M follow up/ PSA/ US(set) Intake Note: Patient presents for follow up visit for nocturia Urology Medications: none Blood Thinner: apixaban Imaging :01/11/25 PSA :2.49 Metal Sorter Required: No Accompanied by: Spouse Allergies No Known Allergies (No Known Allergies*) Allergy (Verified 03/07/25 15:55) Medication List - Last Reconciled 03/07/25 by MONICA Wong amiodarone 100 mg PO DAILY apixaban (Eliquis) 5 mg PO BID diltiazem HCl CD 120 mg PO DAILY omeprazole 20 mg PO DAILY tamsulosin 0.4 mg PO BEDTIME 30 days HPI Comments Details: Randall is a very pleasant 79-year-old male patient of Dr. Friedman who was accompanied by his significant other at today's office visit. He has a past medical history of COPD, persistent atrial fibrillation, pulmonic stenosis, previous nicotine dependence, history of ETOH abuse, gastritis, and migraines. He presents to the office today for follow-up. Of note, patient was seen approximately 4 months ago as a new patient for nocturia at which time he was started on Flomax, a retroperitoneal ultrasound was ordered for further assessment evaluation as well as a sleep study. These results were reviewed and communicated with the patient today. Retroperitoneal ultrasound 12/31 bilateral kidneys are normal in length and echotexture. There is t the bladder appears unremarkable. Prostate volume measuring approximately 7 mLs. He reports feeling Flomax has been helpful. He reports noting over the last few weeks he has no more than 1 episode of nocturia per night. He also discusses having episodes where he had no nocturia. In regards to patient's sleep study patient was scheduled to follow-up with pulmonology in February however missed his appointment and plans to call for rescheduling. We did discussed importance in doing so. In office urinalysis results reviewed with the patient today. Recent PSA results reviewed with the patient today as noted and trended below: PSAs: 05/31 2.0 01/29 1.5, 01/30 2.5 He otherwise denies urinary urgency, urinary frequency, incontinence, hematuria, dysuria, foul smelling urine, changes to urinary stream, flank pain, fever, and or chills. He otherwise offers no other issues or concerns at this time. [facility] Medical History DEE (obstructive sleep apnea) Elevated brain natriuretic peptide (BNP) level Persistent atrial fibrillation Paroxysmal atrial fibrillation Atrial fibrillation with RVR Pulmonic stenosis BPH (benign prostatic hyperplasia) Smoker History of ETOH abuse Hx of gastritis Migraine Surgical History Status post incision and drainage Hx of colonoscopy History of esophagogastroduodenoscopy (EGD) Family History Brother Mental health disorder Social History Household Members: Spouse Housing: Apartment Do you presently have visiting nurse or other home services: No Patient Tobacco Use Status: Former Tobacco user Tobacco use type: Cigarette Cigarettes Per Day: 7 Years Smoked: 50 e-Cigarette/Vaping Use: Never Used Second Hand Smoke Exposure: Yes Advance Directives Date on File: 09/03/23 service: No Current occupational status: retired Cognitive needs: No Hearing needs: No Vision needs: No Review of Systems Const All systems reviewed & are unremarkable except as noted in HPI and below Physical Exam Const General: cooperative, comfortable, no acute distress, well developed, alert and awake Orientation/consciousness: patient oriented x3 Limitations: no limitations HEENT Head: Yes normal to inspection, Yes normocephalic and Yes atraumatic Ears: hearing grossly normal bilaterally Eyes General: appearance normal, both eyes and all related structures Neck Neck: Yes normal visual inspection and Yes trachea midline Chest Chest palpation & inspection: normal inspection of the chest Resp Effort & Inspection: normal respiratory effort and able to speak in complete sentences Cardio Rate: regular rate GI Inspection: Yes normal to inspection General: Yes no CVA tenderness Back/Spine/Pelvis Back: no CVA tenderness Skin General skin exam: no rashes or lesions noted Neuro General: patient oriented x3 Extrem General: Yes normal to inspection Psych Appearance: grossly normal and well kempt Mental Status: mental status grossly normal Speech and movement: Normal speech and movement present and Clear speech present Affect: normal affect Attitude: cooperative Thought process: Normal thought process present Thought content: Normal thought content present Insight: Fair insight present (Psych) Judgement: Fair judgement present (Psych) Results AMB Urinalysis, Automated UA Leukoctes 125 Ken[place]/uL Last Edit by [facility] F[facility] on 03/07/25 15:50 UA Nitrite Negative Last Edit by Brianna Cool[facility] on 03/07/25 15:50 UA Urobilinogen 0.2 mg/dL Last Edit by Brianna Cool[facility] on 03/07/25 15:50 UA Protein 30 mg/dL Last Edit by [facility] [place] on 03/07/25 15:50 UA pH 6.0 Last Edit by [facility] on 03/07/25 15:50 UA Blood 0 Pedro Pablo/uL Last [facility] [place] [facility] 03/07/25 15:50 UA Specific [place] 1.030 Last Edit by [facility] on 03/07/25 15:50 UA Ketone Positive Last Edit by Brianna Cool [facility] on 03/07/25 15:50 UA Bilirubin 2 mg/dL Last Edit by [facility] on 03/07/25 15:50 UA Glucose 0 mg/dL Last Edit by [facility] on 03/07/25 15:50 Results Reviewed Results Reviewed: Laboratory Last Values Urine pH (Auto) 6.0 03/07/25 15:31 Specific [place] (Auto) 1.030 03/07/25 15:31 Urine Protein (Auto) 30 mg/dL 03/07/25 15:31 Glucose (UA)(Auto) 0 mg/dL 03/07/25 15:31 Urine Ketones (Auto) Positive 03/07/25 15:31 Urine Blood (Auto) 0 Pedro Pablo/uL 03/07/25 15:31 Urine Nitrite (Auto) Negative 03/07/25 15:31 Urine Bilirubin (Auto) 2 mg/dL 03/07/25 15:31 Urine Urobilinogen (Auto) 0.2 mg/dL 03/07/25 15:31 Leukocyte Esterase (Auto) 125 Kenney/uL 03/07/25 15:31 Date of Service: 12/20/24 US Renal Comparison: None Findings: Right kidney normal length and echotexture, 10.6 cm length. Left kidney normal length and echotexture, 11.6 cm length. There is thinning of renal parenchyma bilaterally. There are renal vascular calcifications bilaterally. No collecting system dilatation of either kidney. Normal color Doppler. The urinary bladder was decompressed and could not be evaluated. IMPRESSION: 1. The urinary bladder was decompressed and could not be evaluated. 2. There is bilateral renal volume loss. Date of Service: 01/11/25 Procedure(s): US bladder FINDINGS: Sonographic examination of the urinary bladder was performed before and after voiding. Before voiding, the urinary bladder measured 10.6 x 6.3 x 2.7 cm, for an estimated volume of305 mL. After voiding, the urinary bladder measured 2.9 x 1.9 x 2.5, for an estimated volume of 7.4 mL. No intrinsic bladder abnormality is identified. Bilateral ureteral jets are identified. The prostate measures 2.3 x 2.6 x 2.4 cm. IMPRESSION: Unremarkable ultrasound of the urinary bladder. Post void bladder residual of 7.4 mL. Assessment & Plan Assessment & Plan (1) Nocturia: Code(s): R35.1 - Nocturia Category: Medical Plan In office urinalysis results reviewed with the patient today; as noted above. Continue Flomax as discussed and prescribed. Recent retroperitoneal ultrasound results reviewed with the patient today; as noted above. Recent PSA results reviewed with the patient today; as noted above. We discussed potential causes of nocturia. He reports be happy with current voiding parameters. Will continue with surveillance monitoring. We discussed the importance of following up with pulmonology as planned. Follow-up in 6 months with PVR; or sooner with any issues, concerns, and or ques tions. Orders: Orders AMB Urinalysis Automated Today Z13.9 - Encounter for screening, unspecified Medications: Changed From tamsulosin 0.4 mg PO BEDTIME 30 days 30 caps 0RF N40.1 - Benign prostatic hyperplasia with lower urinary tract symptoms, R35.1 - Nocturia To tamsulosin 0.4 mg PO BEDTIME 90 caps 3RF 90 days N40.1 - Benign prostatic hyperplasia with lower urinary tract symptoms, R35.1 - Nocturia Patient Instructions: The patient had an opportunity to ask questions regarding the treatment plan. All questions were answered. Physical exam, labs, and imaging were discussed and reviewed in detail. As well as risks, benefits, and discussion of treatment choices. No major barriers to understanding were identified. The patient expressed understanding and agreement with the above treatment plan. The patient was made aware they should contact our office by phone for worsening of their current condition, the appearance of new symptoms, or with any questions or concerns. Compliance is encouraged with any medications and follow up testing that is ordered. It is a privilege to be allowed the opportunity to participate in? your urological care.? Again, if you have any questions or concerns If you have any questions or concerns please do not hesitate to contact me. The office is [phone]. This note is constructed using voice recognition software. While every effort has been made to ensure accuracy band saw operator cake cutting errors may have been included. Yours sincerely, MONICA Wong Coding Level of Care Code Est Pt Level 3 (45301) Complex EM visit Add On G2211 Diagnoses Nocturia R35.1
--- OUTSIDE RECORDS SUMMARY | 2025-03-07 15:37 | XMS_ITS | Patient Health Record ---
Author Organization [facility] Address [address] [place] [address] Care Team Providers Care Front End Assistant Name Role Phone BRUNO GIL Primary Care Provider Andrew Herbert Unavailable [phone] Allergies No Known Allergies Reason For Referral No Information Medications Medication SIG (Take, Route, Fr equency, Duration) Notes Start Date End Date Status Omeprazole 20 MG TAKE 1 CAPSULE BY [facility] EVERY MORNING Orally Once a day [...] Problem Status W/U Status Risk Notes Problem [id number] Encounter for screening for malignant neoplasm of colon (Z12.11) Active confirmed Problem History of adenomatous polyp of colon (785614119) History of adenomatous polyp of colon (Z86.010) Active confirmed Problem Duodenitis (29996404) Duodenitis (K29.80) Active confirmed Problem 464770675 History of colon polyps (Z86.010) Active confirmed Problem Gastritis (5887296) Gastritis (K29.70) Active confirmed Problem 174558431 Abnormal CT scan , esophagus (R93.3) Active confirmed 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 pylori infection (A04.8) Active confirmed Problem 2369965970487464 Erosive gastrit is (K29.60) Active confirmed Problem Diverticulosis of colon (080819185) Diverticulosis of colon (K57.30) Active confirmed Problem Gastroesophageal reflux disease with esophagitis (disorder) (399234030) Gastro-esophageal reflux disease with esophagitis, without bleeding (K21.00) Active confirmed Plan Of Treatment Future Test Test Name Order Date UPPER GI ENDOSCOPY 12/01/2018 COLONOSCOPY 12/01/2018 UPPER GI ENDOSCOPY 01/08/2022 COLONOSCOPY 01/08/2022 Insurance Providers Payer Name Payer Address Payer Phone Subscriber Number Group Number Insured Name Patient Relationship to Insured Coverage Start Date Coverage End Date [facility] [address] [address] [place] [address] [id number] KATHY NI Self - patient is the insured 2 MEDICAID OF [facility] [address] [place] [address] [id number] KATHY NI Self - patient is the insured MEDICARE OF [place] [address] [place] [address] [id number] KATHY NI Self - patient is the insured Medical (General) History Medical History History ICD Code Denies ND,DM,CVA,Lung disease,renal dise ase EGD 12/2017-erosive gastritis and [...]
== END 2025-03-07 15:56 | disposition home or self-care (01) ==
LOC: HO.HUSH 15:18
PROVIDERS: PCP Nurse Practitioner Family; Visit Provider Nurse Practitioner Family
DX: Z13.9 Encounter for screening, unspecified (principal); R35.1 Nocturia
CPT/HCPCS: 99213; G2211

== ENCOUNTER → 2025-03-07 15:18 | Outpatient (BNVA) | payer MEDICARE, SELFPAY | PROVIDERS: PCP Nurse Practitioner Family; Visit Provider Nurse Practitioner Family | DX: R35.1 Nocturia (principal) | CPT/HCPCS: 81003; 99212 ==

== ENCOUNTER 2025-03-17 13:40 | Outpatient (REF) | payer MEDICARE, SELFPAY ==
--- NOTE | ~2025-03-17 | XR_ITS ---
EXAMINATION: XR CHEST CLINICAL INFORMATION: I48.0 - Paroxysmal atrial fibrillation COMPARISON: July 29, 2024. TECHNIQUE: 2 views of the chest were obtained. FINDINGS: No hyperinflation. No consolidation, pleural effusion or pneumothorax. Cardiomediastinal silhouette size is normal. Multilevel thoracolumbar spondylosis. 10% volume loss of the vertebral bodies in the axial skeleton likely old and osteoporotic. S-shaped curvature of the thoracolumbar spine. XR/XR chest 2V IMPRESSION: No acute airspace disease. Multilevel spondylosis. Stable chest. Electronically signed by: Delon Em MD 03/17/2025 02:21 PM EDT
--- NOTE | ~2025-03-17 | US_ITS ---
EXAMINATION: Noninvasive assessment of the bilateral lower extremities. CLINICAL INFORMATION: Lower extremity weakness. TECHNIQUE: Duplex Doppler techniques with waveform analysis and measurement of velocities in the bilateral common femoral, profunda femoris, superficial femoral, popliteal and tibial arteries were performed. The study was performed only at rest. COMPARISON: None FINDINGS: DIRECT DUPLEX DOPPLER FINDINGS: RIGHT LEG: Common femoral artery: 198 cm/s, phasicity: Triphasic. Profunda femoris artery: 104 cm/s, phasicity: Biphasic. Superficial femoral artery (proximal): 99 cm/s, phasicity: Triphasic. Superficial femoral artery (mid): 108 cm/s, phasicity: Triphasic. Superficial femoral artery (distal): 95 cm/s, phasicity: Triphasic. Popliteal artery: 101 cm/s, phasicity: Triphasic. Posterior tibial artery: 157 cm/s, phasicity: Monophasic. Peroneal artery: 76 cm/s, phasicity: Monophasic. Anterior tibial artery: No color Doppler flow. Dorsalis pedis artery: 125 cm/s, phasicity:Reversal LEFT LEG: Common femoral artery: 121 cm/s, phasicity: Triphasic. Profunda femoris artery: 50 cm/s, phasicity: Biphasic. Superficial femoral artery (proximal): 89 cm/s, phasicity: Triphasic. Superficial femoral artery (mid): 130 cm/s, phasicity: Triphasic. Superficial femoral artery (distal): 128 cm/s, phasicity: Triphasic. Popliteal artery: 95 cm/s, phasicity: Triphasic. Posterior tibial artery: 36 cm/s, phasicity: Monophasic Peroneal artery: 113 cm/s, phasicity: Monophasic. Anterior tibial artery: 61 cm/s, phasicity: Monophasic. Dorsalis pedis artery: 62 cm/s, phasicity: Monophasic. US/US arterial duplex LE BI IMPRESSION: Right leg: Severe inflow disease from the posterior tibialis to the dorsalis pedis arteries. Left leg: Severe inflow disease from the posterior tibialis to the dorsalis pedis arteries. QUIQUE Reference: - >1.4 = calcified vessels - 0.9 - 1.4 = normal - no significant arterial disease - 0.7 - 0.89 = mild peripheral arterial disease - 0.51 - 0.69 = moderate peripheral arterial disease - 0.50 = severe peripheral arterial disease - < .30 = critical arterial disease Electronically signed by: Delon Em MD 03/17/2025 03:50 PM EDT RP
--- OUTSIDE RECORDS SUMMARY | 2025-03-17 13:43 | XMS_ITS | Patient Health Record ---
Author Organization [facility] Address [address] [place] [address] Care Team Providers Care Staff Trainer Name Role Phone BRUNO GIL Primary Care Provider Andrew Herbert Unavailable [phone] Allergies No Known Allergies Reason For Referral No Information Medications Medication SIG (Take, Route, Fr equency, Duration) Notes Start Date End Date Status Omeprazole 20 MG TAKE 1 CAPSULE BY [facility] EVERY MORNING Orally Once a day for [...] Problem Status W/U Status Risk Notes Problem 279397351 Encounter for screening for malignant neoplasm of colon (Z12.11) Active confirmed Problem History of adenomatous polyp of colon (226103670) History of adenomatous polyp of colon (Z86.010) Active confirmed Problem Duodenitis (53360446) Duodenitis (K29.80) Active confirmed Problem 813903328 History of colon polyps (Z86.010) Active confirmed Problem Gastritis (8125685) Gastritis (K29.70) Active confirmed Problem 701808069 Abnormal CT scan , esophagus (R93.3) Active confirmed Problem Martinez esophagus (959161375) 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 pylori infection (A04.8) Active confirmed Problem 9768237719456176 Erosive gastrit is (K29.60) Active confirmed Problem Diverticulosis of colon (266104139) Diverticulosis of colon (K57.30) Active confirmed Problem Gastroesophageal reflux disease with esophagitis (disorder) (912656566) Gastro-esophageal reflux disease with esophagitis, without bleeding (K21.00) Active confirmed Plan Of Treatment Future Test Test Name Order Date UPPER GI ENDOSCOPY 12/01/2018 COLONOSCOPY 12/01/2018 UPPER GI ENDOSCOPY 01/08/2022 COLONOSCOPY 01/08/2022 Insurance Providers Payer Name Payer Address Payer Phone Subscriber Number Group Number Insured Name Patient Relationship to Insured Coverage Start Date Coverage End Date [facility] [address] [address] [place] [address] [id number] KATHY NI Self - patient is the insured 2 MEDICAID OF [facility] [address] [place] [address] [id number] KATHY NI Self - patient is the insured MEDICARE OF [place] [address] [place] [address] [id number] KATHY NI Self - patient is the insured Medical (General) History Medical History History ICD Code Denies RI,DM,CVA,Lung disease,renal dise ase EGD 12/2017-erosive gastritis and [...]
== END 2025-03-17 13:41 | disposition home or self-care (01) ==
LOC: HO.US 13:40
PROVIDERS: PCP Nurse Practitioner Family; Visit Provider Nurse Practitioner Family
DX: R29.898 Other symptoms and signs involving the musculoskeletal system (principal); I48.0 Paroxysmal atrial fibrillation; I70.203 Unspecified atherosclerosis of native arteries of extremities, bilateral legs
CPT/HCPCS: 71046; 93925

== ENCOUNTER → 2025-03-17 13:41 | Outpatient (BNV) | payer MEDICARE, SELFPAY | PROVIDERS: PCP Nurse Practitioner Family; Visit Provider Radiology Diagnostic Radiology | DX: I73.9 Peripheral vascular disease, unspecified (principal); M47.814 Spondylosis without myelopathy or radiculopathy, thoracic region | CPT/HCPCS: 71046; 93925 ==

== ENCOUNTER 2025-06-01 09:29 | Outpatient (AMB) | payer MEDICARE, MEDICAID, SELFPAY ==
[2025-06-01 09:32] VITALS: BP 128/70; PULSE 90; O2SAT 95; BMI 31.6
--- NOTE | 2025-06-01 09:32 | MHC.OFFVIS ---
Vital Signs 06/01/25 09:32 Height 5 ft 4 in Weight 184 lb 1.376 oz BMI 31.6 BP 128/70 Blood Pressure Location Lt brachial Position Sitting Pulse 90 Pulse Source Pulse Oximeter Pulse Oximetry (%) 95 Oxygen Delivery Method Room Air Intake Visit Reasons: COPD Body Team Member Required: No Accompanied by: Self / Same As Patient Allergies No Known Allergies (No Known Allergies*) Allergy (Verified 06/01/25 09:36) HPI Comments Details: The patient is a 79-year-old gentleman presenting with underlying COPD. The patient states that he has had worsening respiratory symptoms including dyspnea on exertion bthr-bo-vsynyebh severity and cough. He was started on Trelegy with a nonsignificant improvement. The patient did have a chest x-ray back in the fall of 2023 which I personally reviewed with him. No evidence of any active disease. He also underwent pulmonary function studies demonstrating COPD. We did go for brief walking oximetry in the office and was able to maintain a pulse ox of medicines % heart rate was stable to 80. He was fairly comfortable. Will go ahead and optimize his medication by increasing his Trelegy to the 200 dose. I do believe Trelegy is a good option for him specially with his a history of atrial fibrillation where the ultra Laba tends to not be as irritating to the heart. Will go ahead and continue with the dose and the patient will continue to exercise regularly. Will follow-up in 4-6 months. It has any issues arise she will call for an earlier assessment. 06/01/2025 the patient is here for a pulmonary follow-up visit. Overall the patient has been doing okay. Denies any worsening shortness of breath or cough. He does get short of breath when he leans forward. Probably because of his abdominal girth. But overall does okay. He has a get refills. In addition to that we did talk about having a rescue inhaler that he can use as needed. No recent imaging to review. At this point the patient going to get an x-ray for the next visit. But for now he denies any other complaints. Will go ahead and have him come back in a year. If he has any issues prior to this he can always call for an earlier assessment. [facility] Medical History DEE (obstructive sleep apnea) Elevated brain natriuretic peptide (BNP) level Persistent atrial fibrillation Paroxysmal atrial fibrillation Atrial fibrillation with RVR Pulmonic stenosis BPH (benign prostatic hyperplasia) Smoker History of ETOH abuse Hx of gastritis Migraine Surgical History Status post incision and drainage Hx of colonoscopy History of esophagogastroduodenoscopy (EGD) Family History Brother Mental health disorder Social History Household Members: Spouse Housing: Apartment Do you presently have visiting nurse or other home services: No Patient Tobacco Use Status: Former Tobacco user Tobacco use type: Cigarette Cigarettes Per Day: 7 Years Smoked: 50 e-Cigarette/Vaping Use: Never Used Second Hand Smoke Exposure: Yes Advance Directives Date on File: 09/03/23 service: No Current occupational status: retired Cognitive needs: No Hearing needs: No Vision needs: No Review of Systems Const Denies fatigue and Denies fever(s) ENT Denies dizziness Card Denies chest pain, Denies leg edema, Denies lightheadedness, Denies palpitations, Denies dyspnea, Reports dyspnea on exertion, Denies orthopnea and Denies other (loss of consciousness) Resp Denies cough, Denies dyspnea and Reports dyspnea on exertion GI Denies hematochezia and Denies change in stool character Musc Denies abnormal gait, Denies muscle weakness, Denies numbness, Denies radiating pain into limb and Denies tingling Neuro Denies abnormal gait, Denies dizziness, Denies numbness and Denies tingling Endo Denies fatigue and Denies palpitations Physical Exam Vital Signs: Last Vital Signs Pulse 90 06/01/25 09:32 BP 128/70 06/01/25 09:32 Pulse Ox 95 06/01/25 09:32 Oxygen Delivery Method Room Air 06/01/25 09:32 BMI result Body Mass Index 31.6 Last Vital Signs Temp 98.5 F 09/04/23 07:20 Pulse 85 09/04/23 07:20 Resp 13 09/04/23 07:20 BP 137/90 H 09/04/23 07:20 Pulse Ox 94 09/04/23 07:20 O2 Del Method Room Air 09/04/23 07:20 BMI result Body Mass Index 31.6 Const General: comfortable and no acute distress Orientation/consciousness: patient oriented x3 HEENT Other: Unremarkable Head: Yes normal to inspection Neck Neck: Yes JVD Chest Chest palpation & inspection: normal inspection of the chest Resp Effort & Inspection: normal respiratory effort Auscultation: diminished lung sounds Cardio Rate: regular rate Rhythm: regular rhythm Heart sounds: S1 normal heart sound present and S2 normal heart sound present GI Palpation (GI): Soft to palpation Back/Spine/Pelvis Other: unremarkable Skin General skin exam: no rashes or lesions noted Neuro General: patient oriented x3 Extrem General: Yes normal to inspection Psych Mental Status: mental status grossly normal Assessment & Plan Assessment & Plan (1) Asthma-COPD overlap syndrome: Code(s): J44.89 - Other specified chronic obstructive pulmonary disease Category: Medical (2) Pulmonary nodules: Comment: sub-centimeter stable based on CT chest 2018 to 2021 Code(s): R91.8 - Other nonspecific abnormal finding of lung field Category: Medical Plan Trelegy 100->200 [place] as needed consider pulmonary rehab, pt will like to hold off F/U 8-12 months Medications: New nagqpbqeovr-sqjggofst-wmlendfr 200-62.5-25 mcg (Trelegy Ellipta) 1 inh inhalation DAILY 60 ea 12RF 30 days albuterol sulfate 90 mcg/actuation 2 inhalations inhalation Q6H PRN 18 grams 12RF shortness of breath or wheezing 30 days J44.9 - Chronic obstructive pulmonary disease, unspecified Coding Level of Care Code Est Pt Level 4 (66534) Diagnoses Asthma-COPD overlap syndrome J44.89 Pulmonary nodules R91.8 Time Spent (min) 16
--- OUTSIDE RECORDS SUMMARY | 2025-06-01 11:20 | XMS_ITS | Patient Health Record ---
Author Organization [facility] Address [address] [place] [address] Care Team Providers Care Boss Dyer Name Role Phone BRUNO GIL Primary Care Provider Andrew Herbert Unavailable [phone] Allergies No Known Allergies Reason For Referral No Information Medications Medication SIG (Take, Route, Fr equency, Duration) Notes Start Date End Date Status Omeprazole 20 MG TAKE 1 CAPSULE BY [facility] EVERY MORNING Orally Once a day [...] Problem Status W/U Status Risk Notes Problem 132561017 Encounter for screening for malignant neoplasm of colon (Z12.11) Active confirmed Problem History of adenomatous polyp of colon (723401044) History of adenomatous polyp of colon (Z86.010) Active confirmed Problem Duodenitis (17833571) Duodenitis (K29.80) Active confirmed Problem 913739961 History of colon polyps (Z86.010) Active confirmed Problem Gastritis (3105401) Gastritis (K29.70) Active confirmed Problem 437280611 Abnormal CT scan , esophagus (R93.3) Active confirmed 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 pylori infection (A04.8) Active confirmed Problem [id number] Erosive gastrit is (K29.60) Active confirmed Problem Diverticulosis of colon (224079503) Diverticulosis of colon (K57.30) Active confirmed Problem Gastroesophageal reflux disease with esophagitis (disorder) (102480942) Gastro-esophageal reflux disease with esophagitis, without bleeding (K21.00) Active confirmed Plan Of Treatment Future Test Test Name Order Date UPPER GI ENDOSCOPY 12/01/2018 COLONOSCOPY 12/01/2018 UPPER GI ENDOSCOPY 01/08/2022 COLONOSCOPY 01/08/2022 Insurance Providers Payer Name Payer Address Payer Phone Subscriber Number Group Number Insured Name Patient Relationship to Insured Coverage Start Date Coverage End Date [facility] [address] [address] [place] [address] [id number] KATHY NI Self - patient is the insured 2 MEDICAID OF [facility] [address] [place] [address] [id number] KATHY NI Self - patient is the insured MEDICARE OF [place] [address] [place] [address] [id number] KATHY NI Self - patient is the insured Medical (General) History Medical History History ICD Code Denies [place],DM,CVA,Lung disease,renal dise ase EGD 12/2017-erosive gastritis and [...]
== END 2025-06-01 10:53 | disposition home or self-care (01) ==
LOC: HO.HPS 09:29
PROVIDERS: PCP Nurse Practitioner Family; Visit Provider Hospitalist
DX: J44.89 Other specified chronic obstructive pulmonary disease (principal); R91.8 Other nonspecific abnormal finding of lung field
CPT/HCPCS: 99214

== ENCOUNTER → 2025-06-01 09:29 | Outpatient (BNVA) | payer OTHER, SELFPAY | PROVIDERS: PCP Nurse Practitioner Family; Visit Provider Hospitalist | DX: J44.89 Other specified chronic obstructive pulmonary disease (principal); R91.8 Other nonspecific abnormal finding of lung field | CPT/HCPCS: 99212 ==

== ENCOUNTER → 2025-07-22 12:47 | Outpatient (REF) | payer OTHER, SELFPAY ==
--- NOTE | 2025-07-22 12:51 | CA_ITS ---
Transthoracic Echocardiogram Amended Patient (Last, First, Middle): Randall Olivier, Gender: Male Date of : 1945 Age: 79 Procedure Date: 07/22/2025 Procedure Type: Transthoracic Echocardiogram Location: OP Height: 162.56 cm Weight: 81.19 kg BSA: 1.87 m2 Heart Rate: bpm BP: 118 / 66 mmHg Water Resource Specialist: TO Referring MD: Arben Reyes MD Parcel Carrier: Arben Reyes MD Symptoms: I48.0 - Paroxysmal atrial fibrillation Study Quality: Fair ECG Rhythm: Sinus Conclusions: - 1. Normal LV ejection fraction 55-60% with mild LVH with grade 1 diastolic dysfunction 2. Calcific aortic and mitral valve changes noted with trivial aortic regurgitation 3. Upper limits of normal RV systolic pressure 4. No gross pericardial effusion Findings Left Ventricle Normal left ventricular size and systolic function. There is mildly increased left ventricular wall thickness. The visually estimated ejection fraction is between 55-60%. Spectral Doppler is indicative of an impaired relaxation filling pattern. E/E prime ratio is <8, consistent with normal filling pressures. Evidence suggests grade I (mild) diastolic dysfunction. Peak GLS is -18.9%, within normal limits. Right Ventricle Normal right ventricular cavity size and systolic function. Atria The left atrium is likely dilated. There is no evidence of interatrial shunt. The right atrium is normal in size. Aortic Valve There is mild calcification of the aortic valve. There is no aortic valve stenosis. The peak aortic gradient is 10 mmHg.The mean gradient is 6 mmHg. The aortic valve area is 2.30 cm2. There is trace (trivial) aortic valve regurgitation. Mitral Valve There is mild anterior and posterior mitral leaflet thickening. There is mild mitral annular calcification. There is trace mitral valve regurgitation. There is no mitral valve stenosis. Pulmonic Valve The pulmonic valve is likely normal. Tricuspid Valve Normal tricuspid valve structure. There is mild tricuspid valve regurgitation. The right ventricular systolic pressure is 36 mmHg. Normal right atrial pressure. There is no evidence of pulmonary hypertension. Great Vessels All visible segments of the aorta are normal in size. The pulmonary artery was not well visualized. There is no dilatation of the ascending aorta measuring 3.30 cm. Venous The inferior vena cava is normal in size and collapses greater than 50% with inspiration. Pericardium/Pleural There is no evidence of pericardial effusion. Prior Study Comparison Changes noted compared to prior study dated: 07/12/2024. RV systolic pressure is at upper limits of normal Measurements 2D Linear Measurements IVSd: 1.20 0.6-0.9/0.6-1.0 cm LVIDd: 4.46 3.9-5.3/4.2-5.9 cm LVIDd Index: 2.39 2.4-3.2/2.2-3.1 cm/m2 LVIDs: 2.80 2.0-3.6 cm LVPWd: 1.07 0.7-1.1 cm LA Diam: 3.70 2.7-3.8/3.0-4.0 cm LAIDs Index: 1.98 1.5-2.3 cm/m2 LV Mass: 224.75 67-162/88-224 g LV Mass Index: 120.19 43-95/49-115 g/m2 LVOT Diam: 2.00 3.0+(-)1.3 cm 2D Volumes LA Vol: 28.30 2D Systolic Function EF 4C: 58.10 >55% EF 2C: 58.50 >55% EF BiP: 58.40 >55% Mitral Valve MV Pk E: 0.50 MV PK A: 0.88 MV Decel Time: 424.00 E/A: 0.60 E'Lateral: 6.31 E'Medial: 4.03 E/E' Med: 12.40 E/E' Lat: 7.90 PHT: 124.00 MVA PHT: 1.77 Decel Henry: 1.18 Aortic Valve AoV Pk José: 1.62 AoV Mn José: 1.11 AoV VTI: 0.33 AoV Pk Grad: 10.00 Aov Mn Grad: 6.00 JULIANA Cont.VTI: 2.30 LVOT LVOT Pk José: 1.23 LVOT Mn José: 0.82 LVOT VTI: 0.24 LVOT Pk Grad: 6.00 LVOT Mn Grad: 3.00 LVOT Diam: 2.00 LVOT Area: 3.14 Diastolic Function MV Pk E: 0.50 MV Pk A: 0.88 E/A: 0.60 E'Medial: 4.03 E/E' Med: 12.40 E' Laterial: 6.31 E/E' Lat: 7.90 Right Ventricle TAPSE (mm): 25.20 TVS' José: 13.50 Tricuspid Valve TR Pk José: 2.89 TR Pk Grad: 33.00 RA Press: 3.00 RVSP: 36.00 Great Vessels Aorta Sinus of Valsalva: 3.28 2.0-3.5 cm Ao Asc: 3.30 2.1-3.4 cm Pulmonary Valve PV Pk José: 2.54 PV Min José: 1.57 Peak PV Grad: 26.00 PV Mn Grad: 12.00 Shunting QP:QS: 1.00 Updated in Other Vendor System with Status of Final Arben Reyes MD electronically signed on 07/22/2025 6:20:14 PM with status of Final
== END ==
LOC: HO.CARD 12:47
PROVIDERS: PCP Nurse Practitioner Family; Visit Provider Internal Medicine Cardiovascular Disease
DX: I48.0 Paroxysmal atrial fibrillation (principal)
CPT/HCPCS: 93306

== ENCOUNTER → 2025-07-22 12:51 | Outpatient (BNV) | payer OTHER, SELFPAY | PROVIDERS: PCP Nurse Practitioner Family; Visit Provider Internal Medicine Cardiovascular Disease | DX: I34.81 Nonrheumatic mitral (valve) annulus calcification (principal); I35.1 Nonrheumatic aortic (valve) insufficiency | CPT/HCPCS: 93306; 93356 ==

== ENCOUNTER 2025-07-26 13:17 | Outpatient (AMB) | payer OTHER, SELFPAY ==
[2025-07-26 13:30] VITALS: BP 124/62; PULSE 66; BMI 29.9
--- NOTE | 2025-07-26 13:30 | MHC.OFFVIS ---
Vital Signs 07/26/25 13:30 Height 5 ft 4 in Weight 174 lb 2.643 oz BMI 29.9 BP 124/62 Blood Pressure Location Lt brachial Position Sitting Pulse 66 Pulse Source Monitor Intake Visit Reasons: 6m follow up/echo/labs Allergies No Known Allergies (No Known Allergies*) Allergy (Verified 06/01/25 09:36) Medication List - Last Reconciled 07/26/25 by Griselda Melchor, INTERNATIONAL SOURCING MANAGER-C albuterol sulfate 90 mcg/actuation 2 inhalations inhalation Q6H PRN 30 days amiodarone 100 mg PO DAILY apixaban (Eliquis) 5 mg PO BID diltiazem HCl CD 120 mg PO DAILY gmrgcznboja-blmldvdyj-icbwrjuj 200-62.5-25 mcg (Trelegy Ellipta) 1 inh inhalation DAILY 30 days omeprazole 20 mg PO DAILY tamsulosin 0.4 mg PO BEDTIME 90 days HPI HPI 6m follow up/echo/labs: Details: The patient is a 79-year-old male presenting for follow up of paroxysmal atrial fibrillation. He is being managed with rhythm control using amiodarone and diltiazem and is on Eliquis for anticoagulation. His cardiac history is also notable for sinus bradycardia, suggestive of sinoatrial node dysfunction. His medical history includes sleep apnea, a history of smoking, and GERD, for which he takes omeprazole. He reports feeling well since his last visit in January 2025, denying chest pain, palpitations, dizzy spells, or leg swelling. He notes occasional shortness of breath that is unchanged. The patient's activity is limited to watching TV and activities around the house. An echocardiogram from 07/22/2025 showed a preserved ejection fraction of 55-60%, mild left ventricular hypertrophy, grade 1 diastolic dysfunction, and calcific aortic and mitral valve changes with trivial aortic regurgitation. Blood work ordered during the last visit in January 2025 to monitor liver and thyroid function was not completed. The patient's activity is limited to watching TV and activities around the house. is present for the visit. [facility] Medical History DEE (obstructive sleep apnea) Elevated brain natriuretic peptide (BNP) level Persistent atrial fibrillation Paroxysmal atrial fibrillation Atrial fibrillation with RVR Pulmonic stenosis BPH (benign prostatic hyperplasia) Smoker History of ETOH abuse Hx of gastritis Migraine Surgical History Status post incision and drainage Hx of colonoscopy History of esophagogastroduodenoscopy (EGD) Family History Brother Mental health disorder Social History Household Members: Spouse Housing: Apartment Do you presently have visiting nurse or other home services: No Patient Tobacco Use Status: Former Tobacco user Tobacco use type: Cigarette Cigarettes Per Day: 7 Years Smoked: 50 e-Cigarette/Vaping Use: Never Used Second Hand Smoke Exposure: Yes Advance Directives Date on File: 09/03/23 service: No Current occupational status: retired Cognitive needs: No Hearing needs: No Vision needs: No Review of Systems Const All systems reviewed & are unremarkable except as noted in HPI and below Denies weakness ENT Denies dizziness Card Denies chest pain, Denies chest pain with activity, Denies syncope, Denies rapid heart rate, Denies pedal edema, Denies edema, Denies leg edema, Denies lightheadedness, Denies palpitations, Denies dyspnea, Reports dyspnea on exertion and Denies orthopnea Resp Denies cough, Denies dyspnea and Reports dyspnea on exertion GI Denies hematochezia and Denies change in stool character Musc Denies abnormal gait, Denies muscle cramps, Denies muscle weakness, Denies numbness, Denies radiating pain into limb and Denies tingling Neuro Denies abnormal gait, Denies dizziness, Denies syncope, Denies numbness, Denies tingling and Denies weakness Endo Denies palpitations Physical Exam Vital Signs: Last Vital Signs Pulse 66 07/26/25 13:30 BP 124/62 07/26/25 13:30 BMI result Body Mass Index 29.9 Const General: cooperative, healthy appearing, comfortable and no acute distress Orientation/consciousness: patient oriented x3 HEENT Head: Yes normal to inspection Neck Neck: Yes normal visual inspection and Yes no JVD Resp Effort & Inspection: normal respiratory effort Auscultation: clear to auscultation bilaterally, no crackles, no rales, no rhonchi and no wheezes Cardio Rate: regular rate Rhythm: abnormal rhythm Heart sounds: S1 normal heart sound present, S2 normal heart sound present, no gallops, no murmurs and no rubs Neuro General: patient oriented x3 Extrem General: Yes normal to inspection and No no pedal edema Psych Appearance: grossly normal Mental Status: mental status grossly normal Speech and movement: Normal speech and movement present Office Procedures EKG Details: Today, read by me, sinus rhythm with sinus arrhythmia, rate 66, QTC 454 milliseconds [id number], Complete Assessment & Plan Assessment & Plan (1) Paroxysmal atrial fibrillation: Code(s): I48.0 - Paroxysmal atrial fibrillation Category: Medical Plan: History of paroxysmal atrial fibrillation treated with rhythm control. He is on low-dose amiodarone to help reduce the risk of toxicity. He is on diltiazem CD 120 mg daily. He is on Eliquis for anticoagulation. EKG done today showing normal sinus rhythm with sinus arrhythmia, rate 66, QTC 454 milliseconds. Echocardiogram done 07/22/2025 shows EF 55-60%, mild LVH, calcific aortic valve and mitral valve changes with trivial AR. He is due for updated labs including LFTs and TSH. Orders are in place and he was reminded of this. Recommend biannual CBC, CMP. (2) Sinus bradycardia: Code(s): R00.1 - Bradycardia, unspecified Category: Medical Plan: History of sinus bradycardia. EKG today is showing sinus rhythm with sinus arrhythmia, rate 66. No reports of presyncope, syncope. Continue meds without change. (3) COPD (chronic obstructive pulmonary disease): Code(s): J44.9 - Chronic obstructive pulmonary disease, unspecified Category: Medical Plan: History of COPD/asthma overlap syndrome. Prior history of smoking. Follows with Dr. Lopes for pulmonology. Plan I informed the patient that his recent echocardiogram results were reassuring, showing that his heart is pumping strong and his heart valves appear satisfactory. I discussed the need to complete the blood work ordered by Dr. Reyes at his last visit in January to monitor his liver and thyroid function, which are necessary because of his amiodarone prescription. We clarified the process to ensure the correct lab tests are drawn, as there was previous confusion. I confirmed the plan is to continue his current medications and to follow up in six months, advising him to contact us sooner if he experiences any new chest pains, trouble breathing, or heart palpitations. Patient Instructions: - Continue taking all your current heart medications, including amiodarone, diltiazem, and the blood thinner Eliquis, as prescribed. - Please get the blood work done that Dr. Reyes's office ordered for you.d. - Schedule a follow-up visit in our office in six months. - Please contact us sooner if you have any new symptoms, such as chest pain, new trouble breathing, or a feeling that your heart is racing. Patient was informed and verbally consented to the use of an ambient scribe for clinic note documentation during this visit. Visit time spent on chart review, interview, assessment, orders, documentation. Coding Level of Care Code Est Pt Level 4 (53543) Complex EM visit Add On G2211 Diagnoses Paroxysmal atrial fibrillation I48.0 Sinus bradycardia R00.1 COPD (chronic obstructive pulmonary disease) J44.9 CPT Codes EKG - CPT: 90678-Jqgtyzjheqwwqtmnw, Complete ([id number]) Time Spent (min) 28
--- OUTSIDE RECORDS SUMMARY | 2025-07-27 05:56 | XMS_ITS | Patient Health Record ---
Author Organization [facility] Address [address] [place] [address] Care Team Providers Care Network Security Analyst Name Role Phone BRUNO GIL Primary Care Provider Andrew Herbert [phone] Allergies No Known Allergies Reason For Referral No Information Medications Medication SIG (Take, Route, Frequency, Duration) Notes Start Date End Date Status Omeprazole 20 MG Capsule Delayed Release TAKE 1 CAPSULE BY MOUTH EVERY MORNING Orally Once a day; Duration: 90 days Active Immunizations Vaccine Route Administration Date Status Comme nts Influenza Unknown 12/01/2018 Refused Influenza Unknown 05/28/2022 Administered Social History Tobacco Use: Social History Observation Description Date Details (start date - stop date) Current Smoker NA - NA Social History Drugs/Alcohol: Social Info Question Answer Notes Alcohol Screen Did you have a drink containing alcohol in the past year? Yes How often did you have a drink containing alcohol in the past year? Never (0 point) How many drinks did you have on a typical day when you were drinking in the past year? 1 or 2 drinks (0 point) Points 0 Interpretation Negative Tobacco Use: Social Info Question Answer Notes Tobacco Use/Smoking Patient is a current smoker How often do you smoke cigarettes? every day How many cigarettes a day do you smoke? 21-30 Are you interested in quitting? Ready to quit Additional Details Category Social Info Options Details Miscellaneous: Marital status: Occupation: retired Section Notes: Smoker 1 ppd; heavy drinker up until approx 2014---now just occasionally Smoker 1 ppd; heavy drinker up until approx 2019--describes sobriety as of the 01/2020 OV Smoker 1 ppd; heavy drinker up until approx 2020--describes sobriety as of the 01/2020 OV Problems Problem Type SNOMED Code ICD Code Onset Dates Problem Status W/U Status Risk Notes Problem Screening for malignant neoplasm of colon (132847389) Encounter for screening for malignant neoplasm of colon (Z12.11) Active confirmed Problem History of adenomatous polyp of colon (298638922) History of adenomatous polyp of colon (Z86.010) Active confirmed Problem Duodenitis (18414522) Duodenitis (K29.80) Active confirmed Problem History of polyp of colon (situation) (944541047) History of colon polyps (Z86.010) Active confirmed Problem Gastritis (9337544) Gastritis (K29.70) Active confirmed Problem Abnormal CT scan , esophagus (R93.3) Active confirmed Problem Martinez esophagus (120144804) 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 pylori infection (A04.8) Active confirmed Problem Erosive gastritis (4915287329679130) Erosive gastritis (K29.60) Active confirmed Problem Diverticulosis of colon (353706432) Diverticulosis of colon (K57.30) Active confirmed Problem Gastroesophageal reflux disease with esophagitis (disorder) (805679390) Gastro-esophageal reflux disease with esophagitis, without bleeding (K21.00) Active confirmed Plan Of Treatment Future Test Test Name Order Date UPPER GI ENDOSCOPY 12/01/2018 COLONOSCOPY 12/01/2018 UPPER GI ENDOSCOPY 01/08/2022 COLONOSCOPY 01/08/2022 Insurance Providers Payer Name Payer Address Payer Phone Subscriber Number Group Number Insured Name Patient Relationship to Insured Coverage Start Date Coverage End Date [facility] [address] [address] [place] [address] [id number] KATHY NI Self - patient is the insured 2 MEDICAID OF [facility] [address] [place] [address] [phone] [id number] KATHY NI Self - patient is the insured MEDICARE OF [place] [address] [place] [address] [id number] KATHY NI Self - patient is the insured Medical (General) History Medical History History ICD Code Denies [place],DM,CVA,Lung disease,renal dise ase EGD 12/2017-erosive gastritis and [...]
== END 2025-07-26 13:50 | disposition home or self-care (01) ==
LOC: HO.HCS 13:18
PROVIDERS: PCP Nurse Practitioner Family; Visit Provider Nurse Practitioner Family
DX: I48.0 Paroxysmal atrial fibrillation (principal); R00.1 Bradycardia, unspecified; J44.9 Chronic obstructive pulmonary disease, unspecified
CPT/HCPCS: 93010; 99214; G2211

== ENCOUNTER → 2025-07-26 13:17 | Outpatient (BNVA) | payer OTHER, SELFPAY | PROVIDERS: PCP Nurse Practitioner Family; Visit Provider Nurse Practitioner Family | DX: I48.0 Paroxysmal atrial fibrillation (principal); R00.1 Bradycardia, unspecified; J44.9 Chronic obstructive pulmonary disease, unspecified | CPT/HCPCS: 93005; 99212 ==

== ENCOUNTER 2025-08-02 10:10 | Outpatient (AMB) | payer OTHER, SELFPAY ==
[2025-08-02 10:20] VITALS: BP 140/80; PULSE 78; O2SAT 97; BMI 31.1
--- NOTE | 2025-08-02 10:20 | MHC.PC.OV ---
Vital Signs 08/02/25 10:20 Height 5 ft 4 in Weight 181 lb BMI 31.1 BP 140/80 H Pulse 78 Pulse Oximetry (%) 97 Intake Visit Reasons: 6 months f/up Crimping Machine Operator Required: No Accompanied by: Self / Same As Patient Allergies No Known Allergies (No Known Allergies*) Allergy (Verified 06/01/25 09:36) Tobacco use date assessed: 08/02/25 Fall risk assessment: No Falls in past year Last assessed Fall Risk: 08/02/25 Dental Screening Dental Screen Date: 08/02/25 Did you have a dental visit in the last 12 months?: No Did you have a dental problem in the last 6 months where you did not have access to dental care?: No Was dental information given to patient?: Patient declined (pt has dentures) HPI 6 months f/up HPI Details Chief Complaint The patient presented for a follow-up visit for dyslipidemia. History of Present Illness The patient is a 79 year old individual presenting for a follow-up for dyslipidemia. The patient sees a supervisor self service store and a collision repairer on a regular basis for ongoing care. The patient denies any chest pain or increased shortness of breath. Social History Health Maintenance The patient has established care and follows up regularly with both a supervisor self service store and a collision repairer. Review of Systems - Cardiovascular: Denies chest pain. - Respiratory: Denies increased shortness of breath. Physical Exam General: Cooperative, healthy appearing, comfortable, no acute distress and well developed Orientation: Patient oriented x3 Limitations: No limitations Head: Normal to inspection Ears: Hearing grossly normal bilaterally Nose: Normal external nose present Face and sinus: Normal facial exam Eyes: Appearance normal, both eyes and all related structures Neck: Normal visual inspection and Yes full ROM Respiratory: Diminished breath sounds, able to speak in complete sentences Cardiovascular: Regular rate and rhythm. Normal S1 and S2 GI: Normal to inspection. Soft to palpation and nontender Skin: No rashes or lesions noted Neuro: Patient oriented x3 Extremities: +1 pitting edema to right lower extremity, trace pitting edema to left lower extremity Results Plan 1. Dyslipidemia The patient was encouraged to obtain fasting labs to evaluate the dyslipidemia, with results to be shared with the patient's collision repairer. 2. Lower Extremity Edema The physical exam revealed +1 pitting edema in the right lower extremity and trace edema in the left. Discussion Notes I encouraged the patient to get fasting labs in the near future to assess the patient's dyslipidemia. I also advised that these labs would be helpful for the patient's collision repairer. Patient Instructions - Please go to the lab to have your blood drawn soon. Remember to fast (do not eat or drink anything but water) beforehand. - Make sure your heart doctor (collision repairer) also gets a copy of your lab results. - Continue with your regular appointments with your lung doctor (supervisor self service store) and heart doctor (collision repairer). PFS Medical History DEE (obstructive sleep apnea) Elevated brain natriuretic peptide (BNP) level Persistent atrial fibrillation Paroxysmal atrial fibrillation Atrial fibrillation with RVR Pulmonic stenosis BPH (benign prostatic hyperplasia) Smoker History of ETOH abuse Hx of gastritis Migraine Surgical History Status post incision and drainage Hx of colonoscopy History of esophagogastroduodenoscopy (EGD) Family History Brother Mental health disorder Social History Household Members: Spouse Housing: Apartment Do you presently have visiting nurse or other home services: No Patient Tobacco Use Status: Former Tobacco user Tobacco use type: Cigarette Cigarettes Per Day: 7 Years Smoked: 50 e-Cigarette/Vaping Use: Never Used Second Hand Smoke Exposure: Yes Advance Directives Date on File: 09/03/23 service: No Current occupational status: retired Cognitive needs: No Hearing needs: No Vision needs: No Questionnaire Thrive Questionnaire Date Thrive assessed: 02/01/25 JASBIR-7 AMB Questionnaire JASBIR-7 Date JASBIR - 7 assessed: 02/01/25 Source: Developed by Drs. Andrew Flowers, Lauren Humphries, Vimal Zuniga and colleagues, with an educational garrick from [employer]. Physical exam (Primary Care) Vital Signs: Last Vital Signs Pulse 78 08/02/25 10:20 BP 140/80 H 08/02/25 10:20 Pulse Ox 97 08/02/25 10:20 BMI result Body Mass Index 31.1 Tobacco/Smoking Status: Tobacco use Status Tobacco use date assessed 08/02/25 08/02/25 10:25 Patient Tobacco Use Status Former Tobacco user 08/02/25 10:23 Tobacco use type Cigarette 08/02/25 10:23 e-Cigarette/Vaping Use Never Used 08/02/25 10:23 Thrive Assessment: Date of Thrive Assessment Date Thrive assessed 02/01/25 08/02/25 10:23 Results AMB Hemoglobin A1c AMB Hemoglobin A1c 5.5 % Last Edit by Alee Cage MA on 08/02/25 10:37 Results Reviewed Results Reviewed: Laboratory Last Values Hgb A1c (Clinic) 5.5 % (4.0-6.0) 08/02/25 10:30 Coding Level of Care Code Est Pt Level 3 (48154) Diagnoses Dyslipidemia E78.5 Screening PSA (prostate specific antigen) Z12.5 Assessment & Plan Assessment & Plan (1) Dyslipidemia: Code(s): E78.5 - Hyperlipidemia, unspecified Category: Medical (2) Screening PSA (prostate specific antigen): Code(s): Z12.5 - Encounter for screening for malignant neoplasm of prostate Category: Medical Plan . Orders: Orders AMB Hemoglobin A1c Today Z13.9 - Encounter for screening, unspecified Complete Blood Count Auto Diff Today E78.5 - Hyperlipidemia, unspecified TSH reflex Free T4 Today E78.5 - Hyperlipidemia, unspecified UA CC w/rflx Micro + Cult Today E78.5 - Hyperlipidemia, unspecified Microalbumin, Random (w Creat) Today E78.5 - Hyperlipidemia, unspecified Prostate Specific Antigen Scr Today Z12.5 - Encounter for screening for malignant neoplasm of prostate Comprehensive [facility]. Panel Fast Today E78.5 - Hyperlipidemia, unspecified Lipid Panel Today E78.5 - Hyperlipidemia, unspecified
--- OUTSIDE RECORDS SUMMARY | 2025-08-02 12:25 | XMS_ITS | Patient Health Record ---
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 Name Role Phone BRUNO GIL Primary Care Provider Andrew Herbert [phone] Allergies No Known Allergies Reason For Referral [...] Problem Screening for malignant neoplasm of colon (034286010) Encounter for screening for malignant neoplasm of colon (Z12.11) Active confirmed Problem History of adenomatous polyp of colon (694057417) History of adenomatous polyp of colon (Z86.010) Active confirmed Problem Duodenitis (13677746) Duodenitis (K29.80) Active confirmed Problem History of polyp of colon (situation) (704268975) History of colon polyps (Z86.010) Active confirmed Problem Gastritis (1431358) Gastritis (K29.70) Active confirmed Problem Abnormal CT scan , esophagus (R93.3) Active confirmed Problem 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 pylori infection (A04.8) Active confirmed Problem Erosive gastritis (0039022101586513) Erosive gastritis (K29.60) Active confirmed Problem Diverticulosis of colon (199070104) Diverticulosis of colon (K57.30) Active confirmed Problem Gastroesophageal reflux disease with esophagitis (disorder) (317317992) Gastro-esophageal reflux disease with esophagitis, without bleeding (K21.00) Active confirmed Plan Of Treatment Future Test Test Name Order Date UPPER GI ENDOSCOPY 12/01/2018 COLONOSCOPY 12/01/2018 UPPER GI ENDOSCOPY 01/08/2022 COLONOSCOPY 01/08/2022 Insurance Providers Payer Name Payer Address Payer Phone Subscriber Number Group Number Insured Name Patient Relationship to Insured Coverage Start Date Coverage End Date [facility] [address] [address] [place] [address] [id number] KATHY NI Self - patient is the insured 2 MEDICAID OF [facility] [address] [place] [address] [id number] KATHY NI Self - patient is the insured MEDICARE OF [place] [address] [place] [address] [id number] KATHY NI Self - patient is the insured Medical (General) History Medical History History ICD Code Denies [place],DM,CVA,Lung disease,renal dise ase EGD 12/2017-erosive gastritis and [...]
== END 2025-08-02 11:09 | disposition home or self-care (01) ==
LOC: HO.HMCC 10:11
PROVIDERS: PCP Nurse Practitioner Family; Visit Provider Nurse Practitioner Family
DX: E78.5 Hyperlipidemia, unspecified (principal); Z12.5 Encounter for screening for malignant neoplasm of prostate; Z13.9 Encounter for screening, unspecified

== ENCOUNTER → 2025-08-02 10:10 | Outpatient (BNVA) | payer OTHER, SELFPAY | PROVIDERS: PCP Nurse Practitioner Family; Visit Provider Nurse Practitioner Family | DX: G47.33 Obstructive sleep apnea (adult) (pediatric) (principal); E78.5 Hyperlipidemia, unspecified; R60.0 Localized edema; Z13.1 Encounter for screening for diabetes mellitus | CPT/HCPCS: 83036 ==

== ENCOUNTER 2025-08-30 15:06 | Outpatient (AMB) | payer MEDICARE, MEDICAID, SELFPAY ==
--- NOTE | 2025-08-30 15:15 | MHC.OFFVIS ---
Intake Visit Reasons: 6M/PVR/UA(SET) Intake Note: Patient is present for 6M/PVR/UA Urology Medication:TAMSULOSIN Antibiotic Allergy:NONE Blood Thinner:APIXABAN TODAY'S PVR:0ML'S Cash Poster Required: No Allergies No Known Allergies (No Known Allergies*) Allergy (Verified 08/30/25 21:29) Medication List - Last Reconciled 08/30/25 by MONICA Wong albuterol sulfate 90 mcg/actuation 2 inhalations inhalation Q6H PRN 30 days amiodarone 100 mg PO DAILY apixaban (Eliquis) 5 mg PO BID diltiazem HCl CD 120 mg PO DAILY adxuditquqe-bjbotklys-cubdqlmr 200-62.5-25 mcg (Trelegy Ellipta) 1 inh inhalation DAILY 30 days omeprazole 20 mg PO DAILY tamsulosin 0.4 mg PO BEDTIME 90 days HPI Comments Details: Randall is a very pleasant 80 year-old male patient of Dr. Friedman. He has a past medical history of COPD, persistent atrial fibrillation, pulmonic stenosis, previous nicotine dependence, history of ETOH abuse, gastritis, and migraines. He presents to the office today for follow-up of his lower urinary tract symptoms. In discussion with the patient today reports to be doing and feeling well. He denies having had any bothersome urinary issues or concerns since his last office visit here. He reports compliance with Flomax as prescribed. He does feel episodes of nocturia have improved. Previous workup has included a retroperitoneal ultrasound 12/31 bilateral kidneys are normal in length and echotexture. There is t the bladder appears unremarkable. Prostate volume measuring approximately 7 mLs. He reports feeling Flomax has been helpful. In office urinalysis results reviewed with the patient today. PVR 0 mL. PSAs are as follows: PSAs: 05/31 2.0 01/29 1.5, 01/30 2.5 He otherwise denies urinary urgency, urinary frequency, incontinence, hematuria, dysuria, foul smelling urine, changes to urinary stream, flank pain, fever, and or chills. He otherwise offers no other issues or concerns at this time. [facility] Medical History DEE (obstructive sleep apnea) Elevated brain natriuretic peptide (BNP) level Persistent atrial fibrillation Paroxysmal atrial fibrillation Atrial fibrillation with RVR Pulmonic stenosis BPH (benign prostatic hyperplasia) Smoker History of ETOH abuse Hx of gastritis Migraine Surgical History Status post incision and drainage Hx of colonoscopy History of esophagogastroduodenoscopy (EGD) Family History Brother Mental health disorder Social History Household Members: Spouse Housing: Apartment Do you presently have visiting nurse or other home services: No Patient Tobacco Use Status: Former Tobacco user Tobacco use type: Cigarette Cigarettes Per Day: 7 Years Smoked: 50 e-Cigarette/Vaping Use: Never Used Second Hand Smoke Exposure: Yes Advance Directives Date on File: 09/03/23 service: No Current occupational status: retired Cognitive needs: No Hearing needs: No Vision needs: No Review of Systems Const All systems reviewed & are unremarkable except as noted in HPI and below Physical Exam Const General: cooperative, comfortable, no acute distress, well developed, alert and awake Orientation/consciousness: patient oriented x3 Limitations: no limitations HEENT Head: Yes normal to inspection, Yes normocephalic and Yes atraumatic Ears: hearing grossly normal bilaterally Eyes General: appearance normal, both eyes and all related structures Neck Neck: Yes normal visual inspection and Yes trachea midline Chest Chest palpation & inspection: normal inspection of the chest Resp Effort & Inspection: normal respiratory effort and able to speak in complete sentences Cardio Rate: regular rate GI Inspection: Yes normal to inspection General: Yes no CVA tenderness Back/Spine/Pelvis Back: no CVA tenderness Skin General skin exam: no rashes or lesions noted Neuro General: patient oriented x3 Extrem General: Yes normal to inspection Psych Appearance: grossly normal and well kempt Mental Status: mental status grossly normal Speech and movement: Normal speech and movement present and Clear speech present Affect: normal affect Attitude: cooperative Thought process: Normal thought process present Thought content: Normal thought content present Insight: Fair insight present (Psych) Judgement: Fair judgement present (Psych) Office Procedures Post Void Residual Post Residual Void Post Void Residual (PVR): 0 25212-Meft Void Residual by ultrasound Results AMB Urinalysis, Automated UA Leukoctes 15 Kenney/uL Last Edit by MAURI Levy on 08/30/25 15:48 UA Nitrite Negative Last Edit by Susan Jimenez [facility] on 08/30/25 15:48 UA Urobilinogen 0.2 mg/dL Last Edit by Susan Jimenez [facility] on 08/30/25 15:48 UA Protein 30 mg/dL Last Edit by Susan Jimenez [facility] on 08/30/25 15:48 UA pH 6.0 Last Edit by Susan Jimenez [facility] on 08/30/25 15:48 UA Blood 0 [place]/uL Last Edit by Susan Jimenez [facility] on 08/30/25 15:48 UA Specific [place] 1.025 Last Edit by Susan Jimenez [facility] on 08/30/25 15:48 UA Ketone Positive Last Edit by Susan Jimenez [facility] on 08/30/25 15:48 UA Bilirubin 1 mg/dL Last Edit by Susan Jimenez [facility] on 08/30/25 15:48 UA Glucose 0 mg/dL Last Edit by Susan Jimenez [facility] on 08/30/25 15:48 Results Reviewed Results Reviewed: Laboratory Last Values Urine pH (Auto) 6.0 08/30/25 15:19 Specific [place] (Auto) 1.025 08/30/25 15:19 Urine Protein (Auto) 30 mg/dL 08/30/25 15:19 Glucose (UA)(Auto) 0 mg/dL 08/30/25 15:19 Urine Ketones (Auto) Positive 08/30/25 15:19 Urine Blood (Auto) 0 [place]/uL 08/30/25 15:19 Urine Nitrite (Auto) Negative 08/30/25 15:19 Urine Bilirubin (Auto) 1 mg/dL 08/30/25 15:19 Urine Urobilinogen (Auto) 0.2 mg/dL 08/30/25 15:19 Leukocyte Esterase (Auto) 15 Kenney/uL 08/30/25 15:19 Assessment & Plan Assessment & Plan (1) Screening PSA (prostate specific antigen): Code(s): Z12.5 - Encounter for screening for malignant neoplasm of prostate Category: Medical (2) Nocturia: Code(s): R35.1 - Nocturia Category: Medical Plan In office urinalysis results with the patient today; as noted above. PVR 0 mL. Patient currently denies any bothersome urinary issues or concerns. He reports be happy with current voiding parameters. Continue Flomax as discussed and prescribed. All questions were answered. Will continue with surveillance monitoring. Will obtain PSA in 6 months. Follow-up in 6 months with PSA and PVR; or sooner with any issues, concerns, and or questions. Orders: Orders AMB Urinalysis Automated Today Z13.9 - Encounter for screening, unspecified Prostate Specific Antigen 6 Months R35.1 - Nocturia, Z12.5 - Encounter for screening for malignant neoplasm of prostate Patient Instructions: The patient had an opportunity to ask questions regarding the treatment plan. All questions were answered. Physical exam, labs, and imaging were discussed and reviewed in detail. As well as risks, benefits, and discussion of treatment choices. No major barriers to understanding were identified. The patient expressed understanding and agreement with the above treatment plan. The patient was made aware they should contact our office by phone for worsening of their current condition, the appearance of new symptoms, or with any questions or concerns. Compliance is encouraged with any medications and follow up testing that is ordered. It is a privilege to be allowed the opportunity to participate in? your urological care.? Again, if you have any questions or concerns If you have any questions or concerns please do not hesitate to contact me. The office is [phone]. This note is constructed using voice recognition software. While every effort has been made to ensure accuracy ecommerce analyst errors may have been included. Yours sincerely, MONICA Wong Coding Level of Care Code Est Pt Level 3 (93226) Add On Problem Visit Only Diagnoses Screening PSA (prostate specific antigen) Z12.5 Nocturia R35.1 CPT Codes Post Residual Void - PVR CPT Code: 34442-[place] Void Residual by ultrasound ([id number])
--- OUTSIDE RECORDS SUMMARY | 2025-08-30 16:24 | XMS_ITS | Patient Health Record ---
Author Organization [facility] Address [address] [place] [address] Care Team Providers Care Platemaker Name Role Phone BRUNO GIL Primary Care Provider Andrew Herbert [phone] Allergies No Known Allergies Reason For Referral [...] Problem Screening for malignant neoplasm of colon (591342780) Encounter for screening for malignant neoplasm of colon (Z12.11) Active confirmed Problem History of adenomatous polyp of colon (834383178) History of adenomatous polyp of colon (Z86.010) Active confirmed Problem Duodenitis (04600898) Duodenitis (K29.80) Active confirmed Problem History of polyp of colon (situation) (661210928) History of colon polyps (Z86.010) Active confirmed Problem Gastritis (4487017) Gastritis (K29.70) Active confirmed Problem Abnormal CT scan , esophagus (R93.3) Active confirmed Problem Martinez esophagus (725690362) 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 pylori infection (A04.8) Active confirmed Problem Erosive gastritis (9266954215983935) Erosive gastritis (K29.60) Active confirmed Problem Diverticulosis of colon (348148223) Diverticulosis of colon (K57.30) Active confirmed Problem Gastroesophageal reflux disease with esophagitis (disorder) (492062612) Gastro-esophageal reflux disease with esophagitis, without bleeding (K21.00) Active confirmed Plan Of Treatment Future Test Test Name Order Date UPPER GI ENDOSCOPY 12/01/2018 COLONOSCOPY 12/01/2018 UPPER GI ENDOSCOPY 01/08/2022 COLONOSCOPY 01/08/2022 Insurance Providers Payer Name Payer Address Payer Phone Subscriber Number Group Number Insured Name Patient Relationship to Insured Coverage Start Date Coverage End Date [facility] [address] [address] [place] [address] [id number] KATHY NI Self - patient is the insured 2 MEDICAID OF [facility] [address] [place] [address] [id number] KATHY NI Self - patient is the insured MEDICARE OF [place] [address] [place] [address] [id number] KATHY NI Self - patient is the insured Medical (General) History Medical History History ICD Code Denies [place],DM,CVA,Lung disease,renal dise ase EGD 12/2017-erosive gastritis and [...]
== END 2025-08-30 15:38 | disposition home or self-care (01) ==
LOC: HO.HUSH 15:06
PROVIDERS: PCP Nurse Practitioner Family; Visit Provider Nurse Practitioner Family
DX: Z12.5 Encounter for screening for malignant neoplasm of prostate (principal); R35.1 Nocturia; Z13.9 Encounter for screening, unspecified
CPT/HCPCS: 99213; G2211

== ENCOUNTER → 2025-08-30 15:06 | Outpatient (BNVA) | payer OTHER, SELFPAY | PROVIDERS: PCP Nurse Practitioner Family; Visit Provider Nurse Practitioner Family | DX: R35.1 Nocturia (principal); Z12.5 Encounter for screening for malignant neoplasm of prostate; Z79.899 Other long term (current) drug therapy | CPT/HCPCS: 51798; 81003; 99212 ==